=== PATIENT | female | born 1960 | race Caucasian/White ===

== ENCOUNTER 2017-02-12 02:55 | Emergency (ER) | payer MEDICARE ==
[2017-02-12] MEDS ORDERED: ONDANSETRON HCL INJ/PF 4 MG/2 ML SDV IV ONE (03:22)
--- NOTE | 2017-02-12 04:01 | ER Document Report ---
ED General - General Chief Complaint: Fall Injury Stated Complaint: GENERAL WEAKNESS Notes: Patient is a 48-year-old female with a history of polychondritis. She is on chronic pain meds including hydromorphone. She presents with a headache after she fell and hit her head on the floor. Patient says she was mopping the floor and fell and hit her head against the floor. Since then she's had a headache and did vomit. She also is pain in her right upper and right lower extremities. Patient says 3, to get severe pain after any type of trauma or pushing over the areas due to her history of the connective tissue disorder. She also has a history of fibromyalgia in reviewing her previous records. She says she's followed by a director corporate communications in [place]. Patient says she did not have a headache before following hitting her head. TRAVEL OUTSIDE OF THE [place] IN LAST 30 DAYS: No - Related Data Allergies/Adverse Reactions: caffeine [Caffeine] Allergy (Severe, Verified 11/08/15 19:05) sets off autoimmune response ethyl chloride [Ethyl Chloride] Allergy (Severe, Verified 11/08/15 19:05) Anaphylaxis iodine [Iodine] Allergy (Severe, Verified 11/08/15 19:05) Anaphylaxis lidocaine HCl [From Xylocaine] Allergy (Severe, Verified 11/08/15 19:05) Anaphylaxis morphine [Morphine] Allergy (Severe, Verified 11/08/15 19:05) swelling, AMS pentazocine lactate [From Talwin] Allergy (Severe, Verified 11/08/15 19:05) Hallucinations procaine HCl [From Novocain] Allergy (Severe, Verified 11/08/15 19:05) Anaphylaxis carisoprodol [From Soma] Allergy (Intermediate, Verified 11/08/15 19:05) muscle problems Iodinated Contrast Media - Oral and [IV Dye, Iodine Containing] Allergy ( Intermediate, Verified 11/08/15 19:05) Anaphylaxis pentazocine [Pentazocine] Allergy (Intermediate, Verified 11/08/15 19:05) Hallucinations adhesive tape [Adhesive Tape] Allergy (Mild, Verified 11/08/15 19:05) sores, skin peeled off paraben [Paraben] Allergy (Mild, Verified 11/08/15 19:05) rash ampicillin [Ampicillin] Allergy (Unknown, Verified 11/08/15 19:05) convulsions atropine [Atropine] Allergy (Unknown, Verified 11/08/15 19:05) unknown chicken derived [Chicken Derived] Allergy (Unknown, Verified 11/08/15 19:05) unknown pineapple [Pineapple] Allergy (Unknown, Verified 11/08/15 19:05) unknown wheat [Wheat] Allergy (Unknown, Verified 11/08/15 19:05) unknown acetic acid [Acetic Acid] Adverse Reaction (Mild, Verified 11/08/15 19:05) flu like symptoms hops Allergy (Severe, Uncoded 11/08/15 19:05) severe asthma perfume Ht 52 Allergy (Severe, Uncoded 11/08/15 19:05) Anaphylaxis acrylic Allergy (Intermediate, Uncoded 11/08/15 19:05) swelling fluoride Allergy (Unknown, Uncoded 11/08/15 19:05) unknown Past Medical History - Social History Smoking Status: Unknown if Ever Smoked Frequency of alcohol use: None Drug Abuse: None Family History: Reviewed & Not Pertinent - Past Medical History Cardiac Medical History: Denies: Hx Coronary Artery Disease, Hx Heart Attack, Hx Hypertension Pulmonary Medical History: Reports: Hx Asthma Denies: Hx Bronchitis, Hx COPD, Hx Pneumonia Neurological Medical History: Denies: Hx Cerebrovascular Accident, Hx Seizures GI Medical History: Reports: Hx Gastroesophageal Reflux Disease Musculoskeltal Medical History: Reports Hx Arthritis - generalized Past Surgical History: Reports: Hx Appendectomy, Hx Bowel Surgery, Hx Cholecystectomy, Hx Hysterectomy - Immunizations Hx Diphtheria, Pertussis, Tetanus Vaccination: No Review of Systems - Review of Systems Notes: My Normal Review Basic REVIEW OF SYSTEMS: CONSTITUTIONAL : Denies fever, chills, or sweats. Denies recent illness. EENT: Denies eye, ear, throat, or mouth pain or symptoms. Denies nasal or sinus congestion. RESPIRATORY: Denies cough, cold, or chest congestion. Denies shortness of breath, difficulty breathing, or wheezing. GASTROINTESTINAL: Denies abdominal pain. Denies nausea, vomiting, or diarrhea. Denies constipation. Last BM: GENITOURINARY: Denies difficulty urinating, painful urination, burning, frequency, or blood in urine. MUSCULOSKELETAL: Patient complains of pain over the right upper and right lower extremities. SKIN: Denies rash or skin lesions. NEUROLOGICAL: Denies altered mental status or loss of consciousness. Has a headache. Denies weakness or paralysis or loss of use of either side. Denies problems with gait or speech. Denies sensory or motor loss. ALL OTHER SYSTEMS REVIEWED AND NEGATIVE. Physical Exam - Vital signs Vitals: Resp 15 02/12/17 03:07 - Notes Notes: General Appearance: Well nourished, alert, cooperative, no acute distress, mild obvious discomfort. Vitals: reviewed, See vital signs table. Head: no swelling or tenderness to the head Eyes: PERRL, EOMI, Conjuctiva clear Mouth: No decreasd moisture Neck: Supple, some midline neck tenderness. Lungs: No wheezing, No rales, No rhonci, No accessory muscle use, good air exchange bilaterally. Heart: Normal rate, Regular rythm, No murmur, no rub Abdomen: Normal BS, soft, No rigidity, No abdominal tenderness, No guarding, no rebound, no abdominal masses, no organomegaly Extremities: strength 5/5 in all extremities, good pulses in all extremities, pain to palpation over the entire right upper extremity as well as the entire right lower extremity. No deformities., no edema. Back: Patient does have some pain palpation of the lumbar spine which she says is chronic and not related to the fall. Skin: warm, dry, appropriate color, no rash Neuro: speech clear, oriented x 3, normal affect, responds appropriately to questions. Cranial nerves II through XII are intact except for some facial droop the left side which the patient says is chronic reoccurring for her. Patient patient has good strength in her right side extremities. She has slightly diminished strength in the left upper extremity which again she says is chronic and unchanged from her baseline. Course - Vital Signs Vital signs: Temp Pulse Resp BP Pulse Ox 97.4 F 12 133/71 H 100 02/12/17 03:08 02/12/17 04:19 02/12/17 04:19 02/12/17 04:19 - Laboratory Result Diagrams: 02/12/17 05:30 02/12/17 05:30 Laboratory results interpreted by me: 02/12/17 05:30 Chloride 109 H - EKG Interpretation by Me Additional EKG results interpreted by me: 02/12/17 05:38 EKG is reviewed and interpreted by me. EKG shows normal sinus rhythm with a rate of [address] segment elevation or depression. No ischemic T wave inversions. [place] interval, QRS duration, QTC intervals are within normal range. Old EKG for comparison is from 11/09/2015. - Transfer of Care Notes: 02/12/17 06:26 Patient slept reevaluation is unremarkable. She did have one syncopal episode after hitting her head. Since then she's been doing well. She still has a slight headache. She did not have a headache until she hit her head. It's negative. She had some neck pain and palpation however the patient says that this is chronic for. I still order a CT scan of the neck which was negative. The patient has no new focal weakness or numbness. She's acting appropriately. She is starting to feel improved. She does have a small fracture of the right hand which we have splinted with a all no gutter splint. At this time we' ll discharge her home. Patient says that with her underlying cartilaginous disease or less time she will abstain bed after having a fall being that her body becomes inflamed and painful. I encourage her to stay in bed for next 24 hours so she can rest and recover. I encourage her not to try to stand up and walk do not want her to fall again. I encourage her to use her incentive spirometer as in the past she has developed some pneumonia after having some rib pain from a previous fall. She says she does have an incentive spirometer and she'll continue to use this. I encourage her to return to ER if she has recurrent syncopal episodes, worsening headache, or she feels unwell. Patient and her agree with plan and she will be discharged home. Dictation of this chart was performed using voice recognition software; therefore, there may be some unintended grammatical errors. Procedures - Immobilization right hand Pre-Proc Neuro Vasc Exam: Normal Immobilizer type: Ulnar Performed by: PCT Post-Proc Neuro Vasc Exam: Normal Alignment checked and good: Yes Discharge - Discharge Clinical Impression: Fall Qualifiers: Encounter type: initial encounter Qualified Code(s): W19.XXXA - Unspecified fall, initial encounter Syncope Qualifiers: Syncope type: unspecified Qualified Code(s): R55 - Syncope and collapse Concussion Qualifiers: Encounter type: initial encounter Loss of consciousness presence/duration: without LOC Qualified Code(s): S06.0X0A - Concussion without loss of consciousness, initial encounter Hand fracture, right Qualifiers: Encounter type: initial encounter Fracture type: closed Qualified Code(s): S62.91XA - Unspecified fracture of right wrist and hand, initial encounter for closed fracture Condition: Good Disposition: HOME, SELF-CARE Additional Instructions: Please return to the ER immediately if you have recurrent episode of passing out , worsening headache, vomiting, or if you feel that your symptoms are worsening. Please follow up closely with your primary care doctor for reevaluation. Please follow up with the orthopedic surgeon, Dr. Dawson, for reevaluation of her hand. Please use your incentive spirometer every 30 minutes to help make sure he takes a deep breath so you do not develop pneumonia. Referrals: DANY HERRERA MD [Primary Care Provider] - Follow up tomorrow AUGUSTINA DAWSON DO [ACTIVE STAFF] - Follow up in 3-5 days
[2017-02-12 05:46] LABS: ABSOLUTE EOSINOPHILS # (AUTO) 0.1 10^3/uL (0.0-0.6); ABSOLUTE LYMPHOCYTES (AUTO) 2.4 10^3/uL (0.5-4.7); ABSOLUTE MONOCYTES (AUTO) 0.5 10^3/uL (0.1-1.4); ABSOLUTE NEUT (AUTO) 3.3 10^3/uL (1.7-8.2); BASOPHILS % (AUTO) 0.7 % (0-2); EOSINOPHILS % (AUTO) 1.5 % (0-6); HEMATOCRIT 44.1 % (36.0-47.0); HGB HCT DIFFERENCE 0.9; LYMPHOCYTES % (AUTO) 37.6 % (13-45); MEAN CORPUSCULAR HEMOGLOBIN 30.4 pg (27.0-33.4); MEAN CORPUSCULAR VOLUME 89 fl (80-97); MONOCYTES % (AUTO) 8.6 % (3-13); RED BLOOD COUNT 4.94 10^6/uL (3.72-5.28); RED CELL DISTRIBUTION WIDTH 12.9 % (11.5-14.0); SEGMENTED NEUTROPHILS % (AUTO) 51.6 % (42-78); WHITE BLOOD COUNT 6.3 10^3/uL (4.0-10.5)
[2017-02-12] MEDS ORDERED: ACETAMINOPHEN 325 MG TABLET PO ONE (05:47)
[2017-02-12 05:59] LABS: ANION GAP 8 (5-19); BLOOD UREA NITROGEN 12 mg/dL (7-20); CALCIUM 9.5 mg/dL (8.4-10.2); CARBON DIOXIDE 25 mmol/L (22-30); CHLORIDE 109 mmol/L (98-107); CREATININE RESULT 0.53 mg/dL (0.52-1.25); GLUCOSE 102 mg/dL (75-110); POTASSIUM 3.9 mmol/L (3.6-5.0); SODIUM 142.2 mmol/L (137-145)
[2017-02-12] MEDS ORDERED: HYDROMORPHONE HCL 2 MG TABLET PO ONE (06:13)
[2017-02-12 06:27] VITALS: BP 122/62
--- NOTE | 2017-02-12 07:16 | EKG REPORT ---
SEVERITY:- NORMAL ECG - SINUS RHYTHM : Confirmed by: Alvaro Lewis MD 12-Feb-2017 07:15:50
== END 2017-02-12 06:30 | disposition home or self-care (01) ==
LOC: ER 02:55
PROC: 2W3CX1Z Immobilization of Right Lower Arm using Splint (ICD-10-PCS; principal; 2017-02-12)
DX: S62.91XA Unspecified fracture of right hand, initial encounter for closed fracture (principal); S06.0X0A Concussion without loss of consciousness, initial encounter; R55 Syncope and collapse; R53.1 Weakness; R51 Headache; M79.601 Pain in right arm; M79.604 Pain in right leg; W19.XXXA Unspecified fall, initial encounter
CPT/HCPCS: 93005; 99285; 96374; 36415; 85025; 80048; 71010; 73070; 73630; 73502; 73560; 73030; 73100; 70450; 72125; 93010; 29125; L0120; A9270 ×2; J2405

== ENCOUNTER → 2017-11-12 | Outpatient (CLI) | payer MEDICARE ==
--- NOTE | 2017-11-14 19:13 | WOMENS IMAGING REPORT ---
EXAM DESCRIPTION: 3D SCREENING MAMMO BILAT COMPLETED DATE/TIME: 11/12/2017 10:11 am REASON FOR STUDY: ROUTINE SCREENING; Z12.31 Z12.31 ENCNTR SCREEN MAMMOGRAM FOR MALIGNANT NEOPLASM O F KRISTINA M94.9 DISORDER OF CARTILAGE, UNSPECIFIED COMPARISON: 09/21/2016 and 02/20/2015. TECHNIQUE: Standard craniocaudal and mediolateral oblique views of each breast recorded using digita l acquisition and breast tomosynthesis. LIMITATIONS: None. FINDINGS: No masses, calcifications or architectural distortion. No areas of suspicion. Read with the assistance of CAD. .[facility] - R2 Cenova Version 1.3 .[facility] - R2 Cenova Version 1.3 .[facility] - R2 Cenova Version 2.4 .[facility] [place] - R2 Cenova Version 2.4 .[facility] - R2 [employer] Version 9.2 IMPRESSION: NORMAL MAMMOGRAM. BIRADS 1. BREAST DENSITY: a. The breasts are almost entirely fatty. BIRAD: 1 NEGATIVE RECOMMENDATION: ROUTINE SCREENING COMMENT: The patient has been notified of the results by letter per SA requirements. Additional no tification policies are in place for contacting patient with suspicious or incomplete findings. Quality ID #[id number]: The [employer] recommends an annual screening mammogram for women aged 40 years or over. This facility utilizes a reminder system to ensure that all patients receive reminder letters, and/or direct phone calls for appointments. This includes reminders for routine scr eening mammograms, diagnostic mammograms, or other Breast Imaging Interventions when appropriate. Th is patient will be placed in the appropriate reminder system. The [employer] (ACR) has developed recommendations for screening MRI of the breast s in certain patient populations, to be used in conjunction with mammography. Breast MRI surveillanc e may be appropriate for women with more than 20% lifetime risk of developing breast cancer as deter mined by genetic testing, significant family history of the disease, or history of mantle radiation f or Hodgkins Disease. ACR Practice Guidelines 2008. DBT Technology DBT is a type of tomographic mammography. With conventional mammography, overlapping breast tissue ma y make lesions difficult to detect, even with good compression. DBT uses an x-ray tube that rotates a round the breast, taking images at different angles. These images are then combined to create thin sl ices of the breast that the radiologist can view as a 3D reconstruction. The [employer] unit can perform full-field digital mammograms (2D imaging); or DBT (3D imaging); or both, in a combination mode that quickly performs both the mammogram and the tomosynthesis scan while the breast is still compressed. PQRS 6045F: Fluoroscopic imaging is not utilized for breast tomosynthesis. TECHNICAL DOCUMENTATION: FINDING NUMBER: (1) ASSESSMENT: (1) JOB ID: [id number] [employer]- All Rights Reserved
== END ==
LOC: WI 09:48
PROVIDERS: ATTEND Obstetrics & Gynecology Gynecology
DX: Z12.31 Encounter for screening mammogram for malignant neoplasm of breast (principal); M94.9 Disorder of cartilage, unspecified; M89.9 Disorder of bone, unspecified; Z78.0 Asymptomatic menopausal state
CPT/HCPCS: 77063; G0202; 77067

== ENCOUNTER → 2018-03-28 | Outpatient (CLI) | payer MEDICARE ==
--- NOTE | 2018-03-28 15:30 | RADIOLOGY REPORT (SQ) ---
EXAM DESCRIPTION: NM GASTRIC EMPTYING STUDY COMPLETED DATE/TIME: 03/28/2018 1:23 pm REASON FOR STUDY: NAUSEA WITH VOMITING (R11.2) R11.2 NAUSEA WITH VOMITING, UNSPECIFIED COMPARISON: None. RADIONUCLIDE AND DOSE: The route of agent administration: Oral. 2 millicuries Tc-99m Sulfur Colloid. Boiled eggs TECHNIQUE: Serial images acquired to 4 hours with each image recorded over a 30 minute time frame. I mage intensity values plotted with respect to time with linear regression algorithm. LIMITATIONS: None. FINDINGS: Patient was observed for 4 hours. Gastric emptying at 30 minutes was 11%. Gastric emptying at 60 minutes was 21.9%. Gastric emptying at 90 minutes was 32.9% Gastric emptying at 120 minutes with 43.8% Gastric emptying at 240 minutes was 87.6%. IMPRESSION: Gastric emptying values as described above. TECHNICAL DOCUMENTATION: JOB ID: [id number] [employer]- All Rights Reserved Reading location - IP/workstation name: [email or web address]
== END ==
LOC: RAD 07:25
PROVIDERS: ATTEND Internal Medicine Gastroenterology
DX: R11.2 Nausea with vomiting, unspecified (principal)
CPT/HCPCS: 78264; A9541

== ENCOUNTER 2018-06-11 08:31 | Inpatient (IN) | payer MEDICARE ==
--- NOTE | 2018-06-11 09:06 | RADIOLOGY REPORT (SQ) ---
EXAM DESCRIPTION: HIP LEFT AP/LATERAL COMPLETED DATE/TIME: 06/11/2018 8:53 am REASON FOR STUDY: fall COMPARISON: None. NUMBER OF VIEWS: Two views. TECHNIQUE: AP pelvis and additional cross-table lateral view of the left hip. LIMITATIONS: None. FINDINGS: MINERALIZATION: Normal. LEFT HIP: There is an acute, mildly displaced fracture of the left femoral neck that appears to be ba si-cervical or possibly intratrochanteric. RIGHT HIP: No fracture or dislocation. No worrisome bone lesions. PUBIS AND ISCHIUM: No fracture. PELVIS: No fracture. SACRUM: No fracture or dislocation. No worrisome bone lesions. LOWER LUMBAR SPINE: No fracture or dislocation. No worrisome bone lesions. No significant disc disea se. SOFT TISSUES: Multiple presumed surgical melany project over the midline abdomen and pelvis. OTHER: No other significant finding. IMPRESSION: Acute mildly displaced fracture of the left femoral neck that appears to be basi-cervica l versus intratrochanteric TECHNICAL DOCUMENTATION: JOB ID: [id number]- All Rights Reserved Reading location - IP/workstation name: [email or web address]
--- NOTE | 2018-06-11 09:31 | ER Document Report ---
ED Fall - General Chief Complaint: Fall Stated Complaint: FALL LEFT HIP PAIN Time Seen by Provider: 06/11/18 08:34 Mode of Arrival: Medic Information source: Patient, Relative Notes: Patient states that she was walking in the hallway and tripped over her cat falling on her left side. Patient states she fell on a tile floor. Patient complains of left hip pain and left lower rib pain. Patient denies any difficulty breathing. Patient denies any head injury or loss of consciousness. TRAVEL OUTSIDE OF THE [place] IN LAST 30 DAYS: No - HPI Occurred: Just prior to arrival Where: Home Context: Tripped Associated symptoms: Difficulty walking Location of injury/pain: Lower extremity, Other - Left lower rib tenderness Quality of pain: Sharp Pain Level: 4 - Related data Allergies/Adverse Reactions: caffeine [Caffeine] Allergy (Severe, Verified 06/11/18 08:45) sets off autoimmune response ethyl chloride [Ethyl Chloride] Allergy (Severe, Verified 06/11/18 08:45) Anaphylaxis iodine [Iodine] Allergy (Severe, Verified 06/11/18 08:45) Anaphylaxis lidocaine HCl [From Xylocaine] Allergy (Severe, Verified 06/11/18 08:45) Anaphylaxis morphine [Morphine] Allergy (Severe, Verified 06/11/18 08:45) swelling, AMS pentazocine lactate [From Talwin] Allergy (Severe, Verified 06/11/18 08:45) Hallucinations procaine HCl [From Novocain] Allergy (Severe, Verified 06/11/18 08:45) Anaphylaxis carisoprodol [From Soma] Allergy (Intermediate, Verified 06/11/18 08:45) muscle problems Iodinated Contrast- Oral and IV Dye [IV Dye, Iodine Containing] Allergy ( Intermediate, Verified 06/11/18 08:45) Anaphylaxis pentazocine [Pentazocine] Allergy (Intermediate, Verified 06/11/18 08:45) Hallucinations adhesive tape [Adhesive Tape] Allergy (Mild, Verified 06/11/18 08:45) sores, skin peeled off paraben [Paraben] Allergy (Mild, Verified 06/11/18 08:45) rash ampicillin [Ampicillin] Allergy (Unknown, Verified 06/11/18 08:45) convulsions atropine [Atropine] Allergy (Unknown, Verified 06/11/18 08:45) unknown chicken derived [Chicken Derived] Allergy (Unknown, Verified 06/11/18 08:45) unknown pineapple [Pineapple] Allergy (Unknown, Verified 06/11/18 08:45) unknown wheat [Wheat] Allergy (Unknown, Verified 06/11/18 08:45) unknown acetic acid [Acetic Acid] Adverse Reaction (Mild, Verified 06/11/18 08:45) flu like symptoms hops Allergy (Severe, Uncoded 06/11/18 08:45) severe asthma perfume Ht 52 Allergy (Severe, Uncoded 06/11/18 08:45) Anaphylaxis acrylic Allergy (Intermediate, Uncoded 06/11/18 08:45) swelling fluoride Allergy (Unknown, Uncoded 06/11/18 08:45) unknown Past Medical History - General Information source: Patient - Social History Smoking Status: Never Smoker Chew tobacco use (# tins/day): No Frequency of alcohol use: None Drug Abuse: None Occupation: None Lives with: Spouse/Significant other Family History: Reviewed & Not Pertinent Patient has suicidal ideation: No Patient has homicidal ideation: No - Medical History Medical History: Other - Lupus - Past Medical History Cardiac Medical History: Denies: Hx Coronary Artery Disease, Hx Heart Attack, Hx Hypertension Pulmonary Medical History: Reports: Hx Asthma Denies: Hx Bronchitis, Hx COPD, Hx Pneumonia Neurological Medical History: Denies: Hx Cerebrovascular Accident, Hx Seizures Endocrine Medical History: Reports: Hx Hypothyroidism Renal/ Medical History: Denies: Hx Peritoneal Dialysis Malignancy Medical History: Reports: Hx Ovarian Cancer GI Medical History: Reports: Hx Gastroesophageal Reflux Disease Musculoskeletal Medical History: Reports Hx Arthritis, Reports Hx Fibromyalgia, Reports Other - Chronic back pain, osteoporosis Past Surgical History: Reports: Hx Appendectomy, Hx Bowel Surgery, Hx Cholecystectomy, Hx Hysterectomy, Hx Pancreatic Surgery - Multiple ERCP procedure with stent placement and removal, last surgery was, Other - Surgery to remove adhesions - Immunizations Hx Diphtheria, Pertussis, Tetanus Vaccination: No Review of Systems - Review of Systems Constitutional: Recent illness - Patient being treated for chronic UTI, currently taking penicillin EENT: No symptoms reported Cardiovascular: No symptoms reported Respiratory: Other - Left lower rib tenderness Gastrointestinal: Abdominal pain - Left upper quadrant tenderness along lower costal margin, chronic right upper quadrant and periumbilical tenderness, Nausea Genitourinary: No symptoms reported. denies: Flank pain Female Genitourinary: No symptoms reported Musculoskeletal: Back pain - Chronic back pain, Joint pain - Left hip pain Skin: No symptoms reported Hematologic/Lymphatic: No symptoms reported Neurological/Psychological: No symptoms reported Physical Exam - Vital signs Vitals: Temp Pulse Resp BP Pulse Ox 97.5 F 91 20 159/82 H 100 06/11/18 08:39 06/11/18 08:39 06/11/18 08:39 06/11/18 08:39 06/11/18 08:39 - General General appearance: Appears well, Alert In distress: None - HEENT Head: Normocephalic, Atraumatic Eyes: Normal Conjunctiva: Normal Nasal: Normal Mouth/Lips: Normal Mucous membranes: Normal Neck: Normal, Supple. No: Lymphadenopathy - Respiratory Respiratory status: No respiratory distress Chest status: Nontender Breath sounds: Normal Chest palpation: Tender - Tenderness along left lower costal margin. No: Flail segment, Subcutaneous emphysema, Ecchymosis, Wounds - Cardiovascular Rhythm: Regular Heart sounds: S1 appreciated, S2 appreciated Pulses: Normal: Dorsalis pedis - Abdominal Inspection: Other - Multiple scars to abdomen from previous surgeries Distension: No distension Tenderness: Tender - Mild tenderness to periumbilical, right upper quadrant, patient reports this is chronic, tender along left upper quadrant. No: Guarding Organomegaly: No organomegaly - Back Back: Normal, Nontender - Extremities General upper extremity: Normal inspection, Normal ROM General lower extremity: Tender - Left hip tenderness Hip: Tender - Left hip, Pain with ROM, Unable to bear weight. No: Dislocation Ankle: Normal, Nontender Foot: Normal, Nontender - Neurological Neuro grossly intact: Yes Cognition: Normal Walden Coma Scale Eye Opening: Spontaneous Walden Coma Scale Verbal: Oriented Jacqueline Coma Scale Motor: Obeys Commands Walden Coma Scale Total: 15 - Psychological Associated symptoms: Normal affect, Normal mood - Skin Skin Temperature: Warm Skin Moisture: Dry Skin Color: Normal Course - Re-evaluation Re-evalutation: 06/11/18 09:[address] Hodge regarding patient presentation and choice of imaging studies to evaluate rib tenderness. Patient reports that she has an anaphylactic CODE BLUE response to IV and oral contrast dye. Noncontrast study of the abdomen and pelvis ordered. 06/11/18 11:[address] Hussein regarding patient's CT scan report. Patient states that she has chronic right upper quadrant abdominal pain but the pain is not any different than it normally is. Patient also states she has chronic abdominal pain to the umbilical area from her numerous previous surgeries. Dr. Hussein states that the pneumobilia symptoms are not typically seen with trauma and suspects that these are likely chronic findings due to her numerous biliary surgeries. No evidence for splenic injury at this time, although noncontrasted study was performed given patient's anaphylactic reaction to contrast dye. Consulted with Dr. Bonilla regarding patient's hip fracture. Advises having patient remain n.p.o. and will be by the hospital sometime today. - Vital Signs Vital signs: Temp Pulse Resp BP Pulse Ox 98.2 F 94 18 134/68 H 99 06/11/18 13:38 06/11/18 13:38 06/11/18 13:38 06/11/18 13:38 06/11/18 13:38 - Laboratory Result Diagrams: 06/11/18 11:48 06/11/18 11:48 Laboratory results interpreted by me: 06/11/18 10:30 Ur Leukocyte Esterase TRACE H Labs- Entire Visit 06/11/18 06/11/18 06/11/18 10:30 11:48 11:48 WBC 11.2 H RBC 5.00 Hgb 15.5 Hct 45.4 MCV 91 MCH 31.0 MCHC 34.1 RDW 13.7 Plt Count 259 Seg Neutrophils % 67.9 Lymphocytes % 23.6 Monocytes % 7.2 Eosinophils % 1.0 Basophils % 0.3 Absolute Neutrophils 7.6 Absolute Lymphocytes 2.6 Absolute Monocytes 0.8 Absolute Eosinophils 0.1 Absolute Basophils 0.0 Sodium 145.7 H Potassium 3.8 Chloride 105 Carbon Dioxide 30 Anion Gap 11 BUN 8 Creatinine 0.67 Est GFR ( Amer) > 60 Est GFR (Non-Af Amer) > 60 Glucose 74 L Calcium 9.5 Total Bilirubin 0.4 Direct Bilirubin 0.1 Neonat Total Bilirubin Not Reportable Neonat Direct Bilirubin Not Reportable Neonat Indirect Bili Not Reportable AST 27 ALT 32 Alkaline Phosphatase 60 Total Protein 6.9 Albumin 4.1 Urine Color STRAW Urine Appearance CLEAR Urine pH 9.0 Ur Specific [place] 1.004 Urine Protein NEGATIVE Urine Glucose (UA) NEGATIVE Urine Ketones NEGATIVE Urine Blood NEGATIVE Urine Nitrite NEGATIVE Urine Bilirubin NEGATIVE Urine Urobilinogen NEGATIVE Ur Leukocyte Esterase TRACE H Urine WBC (Auto) 2 Urine RBC (Auto) 0 Urine Mucus (Auto) RARE Urine Ascorbic Acid NEGATIVE - Diagnostic Test Radiology reviewed: Image reviewed, Reports reviewed Discharge - Discharge Clinical Impression: Rib pain on left side Fall Qualifiers: Encounter type: initial encounter Qualified Code(s): W19.XXXA - Unspecified fall, initial encounter Hip fracture, left Qualifiers: Encounter type: initial encounter Fracture type: closed Qualified Code(s): S72.002A - Fracture of unspecified part of neck of left femur, initial encounter for closed fracture Condition: Stable Disposition: ADMITTED OBSERVATION Admitting Provider: Bonilla Unit Admitted: Medical Floor
--- NOTE | 2018-06-11 10:24 | RADIOLOGY REPORT (SQ) ---
EXAM DESCRIPTION: CT ABD/PELVIS NO ORAL OR IV COMPLETED DATE/TIME: 06/11/2018 9:56 am REASON FOR STUDY: fall, left lower lat rib pain, eval spleen COMPARISON: None. TECHNIQUE: CT scan of the abdomen and pelvis performed without intravenous or oral contrast. Images reviewed with lung, soft tissue, and bone windows. Reconstructed coronal and sagittal MPR images revi ewed. All images stored on PACS. All CT scanners at this facility use dose modulation, iterative reconstruction, and/or weight based d osing when appropriate to reduce radiation dose to as low as reasonably achievable (ALARA). [facility]: Dose Right [facility]: CareDose [facility]: Dose Right [facility]: Teradose 4D [facility]: Smart Netstory RADIATION DOSE: CT Rad equipment meets quality standard of care and radiation dose reduction techniq ues were employed. CTDIvol: 9.1 mGy. DLP: 544 mGy-cm.mGy. LIMITATIONS: None. FINDINGS: LOWER CHEST: No significant findings. No nodules or infiltrates. NON-CONTRASTED LIVER, SPLEEN, ADRENALS: There is postsurgical change the gallbladder fossa. There is marked pneumobilia present. The liver, spleen, and adrenal glands are otherwise unremarkable. No e vidence of traumatic injury on this noncontrast examination. PANCREAS: No masses. No peripancreatic inflammatory changes. GALLBLADDER: Surgically absent. RIGHT KIDNEY AND URETER: No suspicious masses. Assessment limited by lack of IV contrast. No signif icant calcifications. No hydronephrosis or hydroureter. LEFT KIDNEY AND URETER: No suspicious masses. Assessment limited by lack of IV contrast. No signifi cant calcifications. No hydronephrosis or hydroureter. AORTA AND RETROPERITONEUM: No aneurysm. No retroperitoneal masses or adenopathy. BOWEL AND PERITONEAL CAVITY: No obvious masses or inflammatory changes. No free fluid. APPENDIX: Normal. PELVIS, BLADDER, AND ABDOMINAL WALL:Postsurgical changes are present along the anterior pelvic wall. There is a tiny focus of air in the anti dependent portion of the bladder. BONES: There is an acute displaced fracture of the left femoral neck that extends along and oblique a xes from a subcapital to trans cervical location. OTHER: No other significant finding. IMPRESSION: 1. Acute displaced fracture of the left femoral neck. The fracture is somewhat oblique in nature and extends from a subcapital to transcervical location. 2. No evidence of splenic injury, however please note that evaluation for traumatic abdominal organ injury is somewhat limited with the lack of IV contrast. 3. Marked pneumobilia. Recommend correlation with any recent gallbladder surgery or other abdominal surgery. 4. Tiny focus of air in the anti dependent portion of the bladder. Recommend correlation with any r ecent catheterization. COMMENT: Quality ID # [id number]: Final reports with documentation of one or more dose reduction techniques (e.g., Automated exposure control, adjustment of the mA and/or kV according to patient size, use of iterative reconstruction technique) TECHNICAL DOCUMENTATION: JOB ID: [id number] [employer]- All Rights Reserved Reading location - IP/workstation name: [email or web address]
--- NOTE | 2018-06-11 10:24 | RADIOLOGY REPORT (SQ) ---
EXAM DESCRIPTION: CHEST 2 VIEWS COMPLETED DATE/TIME: 06/11/2018 10:07 am REASON FOR STUDY: fall, hip fx COMPARISON: None. EXAM PARAMETERS: NUMBER OF VIEWS: two views TECHNIQUE: Digital Frontal and Lateral radiographic views of the chest acquired with the patient in a supine position. RADIATION DOSE: NA LIMITATIONS: none FINDINGS: LUNGS AND PLEURA: No opacities, masses or pneumothorax. No pleural effusion. MEDIASTINUM AND HILAR STRUCTURES: No masses or contour abnormalities. HEART AND VASCULAR STRUCTURES: Heart normal size. No evidence for failure. BONES: No acute findings. HARDWARE: None in the chest. OTHER: No other significant finding. IMPRESSION: NO ACUTE RADIOGRAPHIC FINDING IN THE CHEST. TECHNICAL DOCUMENTATION: JOB ID: [id number] [employer]- All Rights Reserved Reading location - IP/workstation name: [email or web address]
[2018-06-11] MEDS ORDERED: HYDROMORPHONE HCL INJ/PF 2 MG/ML AMPULE IV ONE ×2 (10:34→13:40)
[2018-06-11] MEDS ORDERED: PROMETHAZINE HCL 25 MG SUPP.RECT PR ONE (10:43)
[2018-06-11 11:08] LABS: APPEARANCE,URINE CLEAR; BILIRUBIN,URINE NEGATIVE (NEGATIVE); COLOR,URINE STRAW; GLUCOSE, URINE NEGATIVE (NEGATIVE); KETONES,URINE NEGATIVE (NEGATIVE); LEUKOCYTE ESTERASE,URINE TRACE (NEGATIVE); NITRITE,URINE NEGATIVE (NEGATIVE); PROTEIN,URINE NEGATIVE (NEGATIVE); URINE SPECIFIC GRAVITY 1.004; UROBILINOGEN,URINE NEGATIVE mg/dL (<2.0)
[2018-06-11 12:20] LABS: ABSOLUTE EOSINOPHILS # (AUTO) 0.1 10^3/uL (0.0-0.6); ABSOLUTE LYMPHOCYTES (AUTO) 2.6 10^3/uL (0.5-4.7); ABSOLUTE MONOCYTES (AUTO) 0.8 10^3/uL (0.1-1.4); ABSOLUTE NEUT (AUTO) 7.6 10^3/uL (1.7-8.2); BASOPHILS % (AUTO) 0.3 % (0-2); HEMATOCRIT 45.4 % (36.0-47.0); HEMOGLOBIN 15.5 g/dL (12.0-15.5); LYMPHOCYTES % (AUTO) 23.6 % (13-45); MEAN CORPUSCULAR HGB CONC 34.1 g/dL (32.0-36.0); MEAN CORPUSCULAR VOLUME 91 fl (80-97); MONOCYTES % (AUTO) 7.2 % (3-13); PLATELET COUNT 259 10^3/uL (150-450); RED CELL DISTRIBUTION WIDTH 13.7 % (11.5-14.0); SEGMENTED NEUTROPHILS % (AUTO) 67.9 % (42-78); TOTAL CELLS COUNTED % (AUTO) 100 %; WHITE BLOOD COUNT 11.2 10^3/uL (4.0-10.5)
[2018-06-11 12:47] LABS: ALANINE AMINOTRANSFERASE 32 U/L (9-52); ALBUMIN 4.1 g/dL (3.5-5.0); ALKALINE PHOSPHATASE 60 U/L (38-126); ANION GAP 11 (5-19); ASPARTATE AMINO TRANSFERASE 27 U/L (14-36); BILIRUBIN,DIRECT 0.1 mg/dL (0.0-0.4); BILIRUBIN,TOTAL 0.4 mg/dL (0.2-1.3); BLOOD UREA NITROGEN 8 mg/dL (7-20); CALCIUM 9.5 mg/dL (8.4-10.2); CARBON DIOXIDE 30 mmol/L (22-30); CHLORIDE 105 mmol/L (98-107); GLUCOSE 74 mg/dL (75-110); POTASSIUM 3.8 mmol/L (3.6-5.0); SODIUM 145.7 mmol/L (137-145); TOTAL PROTEIN 6.9 g/dL (6.3-8.2)
[2018-06-11] MEDS ORDERED: DEXTROSE 5%-NORMAL SALINE 1,000 ML IV ONE (13:42)
[2018-06-11] MEDS ORDERED: OXYCODONE HCL IR 5 MG TABLET PO PRN (14:45)
[2018-06-11] MEDS ORDERED: MORPHINE SULFATE 10 MG/ML INJ IV PRN (14:46)
--- NOTE | 2018-06-11 17:15 | PDOC H&P ---
History of Present Illness Admission Date/PCP: 06/11/18 11:14 ALEXANDRA DE LA PAZ Patient complains of: Left hip pain and inability to weight-bear status post fall History of Present Illness: CAROLINA MONTEZ is a 57 year old female with significant comorbidities who fell and tripped over her cat at her house. Fell onto her left hip where she had immediate pain and inability to get up and ambulate. Patient does have a deformity therefore she was brought by EMS to the hospital. Upon further evaluation and imaging patient noted to have a displaced femoral neck fracture. Denies any numbness or tingling or paresthesias. Has significant 5 out of 5 pain and tenderness palpation over the anterior aspect of the hip and the groin region. Any attempt of log roll causes significant pain. She describes the pain to be sharp. Denies any loss of consciousness or any upper extremity injury. Past Medical History Cardiac Medical History: Denies: Coronary Artery Disease, Myocardial Infarction, Hypertension Pulmonary Medical History: Reports: Asthma Denies: Bronchitis, Chronic Obstructive Pulmonary Disease (COPD), Pneumonia Neurological Medical History: Denies: Seizures Endocrine Medical History: Reports: Hypothyroidism Malignancy Medical History: Reports: Ovarian Cancer GI Medical History: Reports: Gastroesophageal Reflux Disease Musculoskeltal Medical History: Reports: Arthritis, Fibromyalgia, Other - Chronic back pain, osteoporosis Hematology: Denies: Anemia Past Surgical History Past Surgical History: Reports: Appendectomy, Cholecystectomy, Hysterectomy, Other - Surgery to remove adhesions Social History Lives with: Spouse/Significant other Smoking Status: Never Smoker Frequency of Alcohol Use: None Hx Recreational Drug Use: No Hx Prescription Drug Abuse: No Family History Family History: Reviewed & Not Pertinent Parental Family History Reviewed: No Children Family History Reviewed: No Sibling(s) Family History Reviewed.: No Medication/Allergy Home Medications: Famotidine [Pepcid 20 mg Tablet] 20 mg PO QHS 11/16/11 Hydroxychloroquine Sulfate [Plaquenil 200 mg Tablet] 200 mg PO DAILY 01/09/15 Pentoxifylline [Pentoxil] 400 mg PO AC 01/09/15 Gabapentin [Neurontin 400 mg Capsule] 800 mg PO TID@06,12,18 11/09/15 Albuterol Sulfate [Albuterol Sulfate 2.5mg/3 mL] 2.5 mg IH Q4HP PRN #120 ml Albuterol Sulfate [Ventolin HFA MDI 18 GM] 2 puff IH Q4HP PRN #1 hfa.aer.ad Adrenal Desiccated Tablet 1 tab PO BID@06,12 06/11/18 Calcium/D3/Argnin/Inos/Silicon [Bone Density Calcium + D Cplt] 2 each PO TID Gabapentin [Neurontin 400 mg Capsule] 1,200 mg PO DAILY@0000 06/11/18 L.acid/L.casei/B.bif/B.sandy/Fos [Probiotic Blend Capsule] 1 each PO Q6 06/11/18 Levothyroxine Sodium [Synthroid 0.088 mg Tablet] 88 mcg PO Q6AM 06/11/18 Magnesium Citrate 100 mg PO Q6 06/11/18 Melatonin [Melatonin 5 mg Tablet] 5 mg PO QHS 06/11/18 Metoclopramide HCl [Reglan] 5 mg PO ACHSP PRN 06/11/18 Ondansetron [Ondansetron Odt] 8 mg SL BIDP PRN 06/11/18 Penicillin V Potassium [Penicillin Vk 500 mg Tablet] 500 mg PO QID MDD FILLED FOR 7DS 06/11/18 Potassium Gluconate [Potassium] 99 mg PO Q6 06/11/18 Ubidecarenone [Co Q-10] 60 mg PO DAILY 06/11/18 Allergies/Adverse Reactions: caffeine [Caffeine] Allergy (Severe, Verified 06/11/18 08:45) sets off autoimmune response ethyl chloride [Ethyl Chloride] Allergy (Severe, Verified 06/11/18 08:45) Anaphylaxis iodine [Iodine] Allergy (Severe, Verified 06/11/18 08:45) Anaphylaxis lidocaine HCl [From Xylocaine] Allergy (Severe, Verified 06/11/18 08:45) Anaphylaxis morphine [Morphine] Allergy (Severe, Verified 06/11/18 08:45) swelling, AMS pentazocine lactate [From Talwin] Allergy (Severe, Verified 06/11/18 08:45) Hallucinations procaine HCl [From Novocain] Allergy (Severe, Verified 06/11/18 08:45) Anaphylaxis carisoprodol [From Soma] Allergy (Intermediate, Verified 06/11/18 08:45) muscle problems Iodinated Contrast- Oral and IV Dye [IV Dye, Iodine Containing] Allergy ( Intermediate, Verified 06/11/18 08:45) Anaphylaxis pentazocine [Pentazocine] Allergy (Intermediate, Verified 06/11/18 08:45) Hallucinations adhesive tape [Adhesive Tape] Allergy (Mild, Verified 06/11/18 08:45) sores, skin peeled off paraben [Paraben] Allergy (Mild, Verified 06/11/18 08:45) rash ampicillin [Ampicillin] Allergy (Unknown, Verified 06/11/18 08:45) convulsions atropine [Atropine] Allergy (Unknown, Verified 06/11/18 08:45) unknown chicken derived [Chicken Derived] Allergy (Unknown, Verified 06/11/18 08:45) unknown pineapple [Pineapple] Allergy (Unknown, Verified 06/11/18 08:45) unknown wheat [Wheat] Allergy (Unknown, Verified 06/11/18 08:45) unknown acetic acid [Acetic Acid] Adverse Reaction (Mild, Verified 06/11/18 08:45) flu like symptoms hops Allergy (Severe, Uncoded 06/11/18 08:45) severe asthma perfume Ht 52 Allergy (Severe, Uncoded 06/11/18 08:45) Anaphylaxis acrylic Allergy (Intermediate, Uncoded 06/11/18 08:45) swelling fluoride Allergy (Unknown, Uncoded 06/11/18 08:45) unknown Review of Systems All systems: reviewed and no additional remarkable complaints except as stated - Pertinent issues noted in HPI. Physical Exam Vital Signs: Temp Pulse Resp BP Pulse Ox 36.8 C 94 18 134/68 H 99 06/11/18 13:38 06/11/18 13:38 06/11/18 13:38 06/11/18 13:38 06/11/18 13:38 General appearance: PRESENT: no acute distress Head exam: PRESENT: atraumatic, normocephalic Eye exam: PRESENT: EOMI, other - Symmetric round pupils. ABSENT: nystagmus Ear exam: PRESENT: normal external ear exam Mouth exam: PRESENT: neck supple Neck exam: ABSENT: lymphadenopathy, tenderness, thyromegaly Respiratory exam: PRESENT: symmetrical, unlabored. ABSENT: accessory muscle use , tachypnea Cardiovascular exam: PRESENT: RRR Pulses: PRESENT: +2 pedal pulses bilateral Vascular exam: PRESENT: normal capillary refill GI/Abdominal exam: PRESENT: soft. ABSENT: distended, guarding, tenderness Neurological exam: PRESENT: alert, awake, oriented to person, oriented to place , oriented to time, oriented to situation Psychiatric exam: PRESENT: appropriate affect, normal mood Skin exam: PRESENT: intact. ABSENT: abrasion, erythema Adult Front & Back Image: 1 - Tender palpation of the left groin. Pain with attempted logroll. Short and externally rotated left lower extremity. With good capillary refill. Neuro vascular intact distally Results Laboratory Results: 06/11/18 11:48 06/11/18 11:48 06/11/18 06/11/18 11:48 11:48 WBC 11.2 H RBC 5.00 Hgb 15.5 Hct 45.4 MCV 91 MCH 31.0 MCHC 34.1 RDW 13.7 Plt Count 259 Seg Neutrophils % 67.9 Lymphocytes % 23.6 Monocytes % 7.2 Eosinophils % 1.0 Basophils % 0.3 Absolute Neutrophils 7.6 Absolute Lymphocytes 2.6 Absolute Monocytes 0.8 Absolute Eosinophils 0.1 Absolute Basophils 0.0 Sodium 145.7 H Potassium 3.8 Chloride 105 Carbon Dioxide 30 Anion Gap 11 BUN 8 Creatinine 0.67 Est GFR ( Amer) > 60 Est GFR (Non-Af Amer) > 60 Glucose 74 L Calcium 9.5 Total Bilirubin 0.4 AST 27 ALT 32 Alkaline Phosphatase 60 Total Protein 6.9 Albumin 4.1 Impressions: Hip X-Ray 06/11/18 08:32 IMPRESSION: Acute mildly displaced fracture of the left femoral neck that appears to be basi-cervical versus intratrochanteric Abdomen/Pelvis CT 06/11/18 09:28 IMPRESSION: 1. Acute displaced fracture of the left femoral neck. The fracture is somewhat oblique in nature and extends from a subcapital to transcervical location. 2. No evidence of splenic injury, however please note that evaluation for traumatic abdominal organ injury is somewhat limited with the lack of IV contrast. 3. Marked pneumobilia. Recommend correlation with any recent gallbladder surgery or other abdominal surgery. 4. Tiny focus of air in the anti dependent portion of the bladder. Recommend correlation with any recent catheterization. Chest X-Ray 06/11/18 09:28 IMPRESSION: NO ACUTE RADIOGRAPHIC FINDING IN THE CHEST. Status: Image reviewed by me Assessment & Plan - Diagnosis (1) Hip fracture, left Qualifiers: Encounter type: initial encounter Fracture type: closed Qualified Code(s) : S72.002A - Fracture of unspecified part of neck of left femur, initial encounter for closed fracture Is this a current diagnosis for this admission?: Yes Plan: 57-year-old female with multiple medical comorbidities and a allergy list twice as long. She suffered a displaced left femoral neck fracture. I discussed the reasoning behind her likely need for a total hip arthroplasty versus just doing a partial hip arthroplasty. She seems to understand as well as her significant other who is present here in the room. Currently wishes to proceed with pain control and consent for surgery for Wednesday who I will discuss with Dr. Adkins to see if he can able to proceed to do the total hip arthroplasty.
[2018-06-11] MEDS: OXYCODONE HCL IR 5 MG TABLET PO PRN (20:16)
--- NOTE | 2018-06-11 22:00 | EKG REPORT ---
SEVERITY:- NORMAL ECG - SINUS RHYTHM : Confirmed by: Peter Abebe 11-Jun-2018 21:59:34
[2018-06-12] MEDS: OXYCODONE HCL IR 5 MG TABLET PO PRN ×2 (01:17→05:04)
[2018-06-12] MEDS ORDERED: ALBUTEROL SULFATE HFA (90 MCG/PUFF) 8 GM MDI (1 MDI/ER DISP) IH PRN (11:02)
[2018-06-12] MEDS ORDERED: HYDROMORPHONE HCL 2 MG TABLET PO PRN (11:02)
[2018-06-12] MEDS ORDERED: ALBUTEROL SULFATE 0.083% NEB 2.5 MG/3 ML AMPUL NEB PRN ×2 (11:02→14:30)
[2018-06-12] MEDS ORDERED: (PENDING PHARMACY ID) (Ondansetron [Ondansetron Odt] 8 MG) SL PRN (11:02)
[2018-06-12] MEDS ORDERED: ONDANSETRON 4 MG TAB.RAPDIS PO PRN (11:06)
[2018-06-12] MEDS: GABAPENTIN 400 MG CAPSULE PO SCH ×3 (11:23→23:14)
[2018-06-12] MEDS: HYDROMORPHONE HCL 2 MG TABLET PO PRN ×4 (11:23→22:10)
[2018-06-12] MEDS ORDERED: B LON PO SCH (12:00)
[2018-06-12] MEDS ORDERED: ACID PO SCH (12:00)
[2018-06-12] MEDS ORDERED: CASEI PO SCH (12:00)
[2018-06-12] MEDS ORDERED: FOS PO SCH (12:00)
[2018-06-12] MEDS ORDERED: (PENDING PHARMACY ID) (Potassium Gluconate [Potassium] 99 MG) PO SCH (12:00)
[2018-06-12] MEDS ORDERED: MAGNESIUM CITRATE 100 MG PO SCH (12:00)
[2018-06-12] MEDS ORDERED: B BIF PO SCH (12:00)
[2018-06-12] MEDS ORDERED: [UNRECOGNIZED DRUG - OTHER] PO SCH (12:00)
[2018-06-12] MEDS: METOCLOPRAMIDE HCL 10 MG TABLET PO PRN ×2 (12:25→18:00)
[2018-06-12] MEDS: PENTOXIFYLLINE 400 MG TABLET.SA PO SCH ×2 (12:35→18:15)
--- NOTE | 2018-06-12 13:36 | PDOC PROGRESS REPORT ---
Subjective Progress Note for:: 06/12/18 Subjective:: Patient laying in bed complaining of pain. They had just adjusted her. No issues overnight. Reason For Visit: FALL, FRACTURE OF LEFT HIP,RIB PAIN ON LEFT SIDE Physical Exam Vital Signs: Temp Pulse Resp BP Pulse Ox 36.8 C 85 16 124/61 98 06/12/18 12:04 06/12/18 12:04 06/12/18 12:04 06/12/18 12:04 06/12/18 12:04 Intake & Output 06/11/18 06/12/18 06/13/18 06:59 06:59 06:59 Intake Total 326 Output Total 600 Balance -274 Weight 70.8 kg Adult Front & Back Image: 1 - Tender to palpation. Unable to do range of motion second to her pain level. Does have positive EHL FHL as well as tibialis anterior. Still externally rotated and shortened extremity. Results Laboratory Results: 06/11/18 11:48 06/11/18 11:48 Impressions: Hip X-Ray 06/11/18 08:32 IMPRESSION: Acute mildly displaced fracture of the left femoral neck that appears to be basi-cervical versus intratrochanteric Abdomen/Pelvis CT 06/11/18 09:28 IMPRESSION: 1. Acute displaced fracture of the left femoral neck. The fracture is somewhat oblique in nature and extends from a subcapital to transcervical location. 2. No evidence of splenic injury, however please note that evaluation for traumatic abdominal organ injury is somewhat limited with the lack of IV contrast. 3. Marked pneumobilia. Recommend correlation with any recent gallbladder surgery or other abdominal surgery. 4. Tiny focus of air in the anti dependent portion of the bladder. Recommend correlation with any recent catheterization. Chest X-Ray 06/11/18 09:28 IMPRESSION: NO ACUTE RADIOGRAPHIC FINDING IN THE CHEST. Assessment & Plan - Diagnosis (1) Hip fracture, left Qualifiers: Encounter type: initial encounter Fracture type: closed Qualified Code(s) : S72.002A - Fracture of unspecified part of neck of left femur, initial encounter for closed fracture Is this a current diagnosis for this admission?: Yes - Plan Summary Plan Summary: 57-year-old female who has a left femoral neck fracture. She agreed to proceed with left total hip arthroplasty. Discussed the case with Dr. Adkins who agreed to take care of the patient and do the surgery tomorrow. Patient now has been placed n.p.o. at midnight and started on fluids. She has been consented. Nursing volunteer services supervisor has been called and the case has been added for tomorrow. Pertaining to her pain levels she does see [facility] therefore will call him to better adequately control her pain level.
[2018-06-12] MEDS ORDERED: PENICILLIN V POTASSIUM 500 MG TABLET PO SCH (14:00)
[2018-06-12] MEDS: CYCLOBENZAPRINE HCL 10 MG TABLET PO PRN ×2 (14:16→22:13)
[2018-06-12] MEDS ORDERED: PENTOXIFYLLINE 400 MG TABLET.SA PO SCH (16:00)
[2018-06-12] MEDS: PENICILLIN V POTASSIUM 500 MG TABLET PO SCH ×2 (18:15→22:09)
[2018-06-12] MEDS: FAMOTIDINE 20 MG TABLET PO SCH (22:09)
[2018-06-12] MEDS: AMITRIPTYLINE HCL 25 MG TABLET PO SCH (22:09)
[2018-06-12] MEDS: MELATONIN 5 MG TABLET PO SCH (22:09)
[2018-06-13] MEDS: HYDROMORPHONE HCL 2 MG TABLET PO PRN ×3 (04:13→21:55)
[2018-06-13] MEDS: GABAPENTIN 400 MG CAPSULE PO SCH ×4 (05:18→23:58)
[2018-06-13] MEDS: LEVOTHYROXINE SODIUM 0.088 MG TABLET PO SCH (05:18)
--- NOTE | 2018-06-13 08:10 | CONSULTATION REPORT E ---
Consultation Report NAME: CAROLINA MONTEZ : 1960 AGE: 57Y DATE: 06/13/2018 ROOM: 403 A TO: DONTA GOODEN M.D. FROM: MARBIN HOLLINS M.D. Requesting Physician REASON FOR CONSULTATION: Acute hip fracture in setting of chronic opioid management with multitude of allergies. HISTORY OF PRESENT ILLNESS: The patient is a 57-year-old female seen in consultation for acute hip fracture and increased pain with a known multitude of allergies. Patient has been seen by the [facility] in the past for both back and neck pain and continued on chronic opioid management with hydromorphone, which she had tolerated well. She notes that her pain began after she tripped and fell, landing on her left hip, over the weekend. She had an inability to get up and ambulate. She had called for EMS and was found to have a deformity of her hip. She was seen and then found via imaging to have a displaced femoral neck fracture. She notes increased pain at the left hip site with any type of movement and specifically over the front and the groin. She notes that any movement will set off a shooting pain down the leg. She describes the pain as sharp. When she is laying flat the pain is relieved on her back. She denies any other recent fevers or infections. She notes that she has a multitude of allergies for which she has been seen at [facility] and found that hydromorphone and pentoxifylline have been effective for her overall pain control. She requests change to alternative medication. Overnight after switch of the hydromorphone she notes that her pain relief is between 2 to 3 hours at a time per dose without side effect. She is awaiting surgery today. PAST MEDICAL HISTORY: Noted history of hypothyroidism, prior ovarian cancer, prior GERD, prior osteoarthritis, prior fibromyalgia, chronic back pain, chronic neck pain. PAST SURGICAL HISTORY: Appendectomy, cholecystectomy, hysterectomy, lysis of adhesions. SOCIAL HISTORY: Denies smoking, illicits, or alcohol. FAMILY HISTORY: Noncontributory. MEDICATIONS: See MAR. Of primary importance is that she is on pain medications, gabapentin 1200 mg daily, pentoxifylline 400 mg p.o. before meals, and hydromorphone 2 mg p.o. q.i.d. p.r.n. at home. ALLERGIES: PLEASE SEE LIST IN MAR GIVEN EXTENSIVE NATURE. REVIEW OF SYSTEMS: Reviewed and no changes from Dr. Irene Hollins's note from 06/11/2018. PHYSICAL EXAMINATION: GENERAL: No acute distress, lying in bed. HEENT: Head is normocephalic, atraumatic. NECK: Supple. RESPIRATORY: Clear to auscultation bilaterally. CARDIOVASCULAR: Regular rate and rhythm. Pulses: 2+ pedal pulses bilaterally. Normal capillary refill. GASTROINTESTINAL: No distention. No guarding. No tenderness. NEUROLOGIC: Alert and oriented x3. PSYCHIATRIC: Appropriate affect. Normal mood. EXTREMITIES: Noted tenderness over the left groin and left hip. Leg is externally rotated and short compared to the right. LABORATORY STUDIES: See MAR of note. DIAGNOSES: 1. Patient with acute hip fracture, left. 2. Chronic back pain with chronic opioid management. PLAN: 1. For left hip fracture, plan is for patient to proceed with surgical total hip arthroplasty with surgical team. 2. In the interim, since there is no IV access, we will continue hydromorphone 2 mg p.o. every 3 hours p.r.n. Once completed with surgery, we will attempt to wean as able. We will then follow up with her in the outpatient setting, hopefully within 7 to 10 days, to continue pain management. 3. Continue her multimodal analgesia with pentoxifylline and gabapentin. We will continue in the postoperative period as well. We will continue to follow along. If there are any questions or concerns, please let us know, if there are any issues with postsurgery pain control as well as transition to oral medications if needed. DICTATING PHYSICIAN: DONTA GOODEN M.D. [id number] PHY#: [id number] ID: [id number] JOB#: [id number] ACCT: [id number] cc:DONTA GOODEN M.D. > [facility]
[2018-06-13] MEDS: PENICILLIN V POTASSIUM 500 MG TABLET PO SCH ×4 (08:29→21:42)
[2018-06-13] MEDS: PENTOXIFYLLINE 400 MG TABLET.SA PO SCH ×3 (08:30→17:23)
[2018-06-13] MEDS ORDERED: UBIDECARENONE 60 MG PO SCH (10:00)
[2018-06-13] MEDS ORDERED: HYDROXYCHLOROQUINE SULFATE 200 MG TABLET PO SCH (10:00)
[2018-06-13] MEDS ORDERED: THROMBIN (BOVINE) TOPICAL 20000 UNIT VIAL ONE (10:12)
[2018-06-13] MEDS ORDERED: BUPIVACAINE INJ/PF LIPOSOME/PF 266 MG/20 ML SDV ONE (10:12)
[2018-06-13] MEDS ORDERED: THROMBIN (BOVINE) 5000 UNIT EPITAXIS KIT ONE (10:12)
[2018-06-13] MEDS ORDERED: PROPOFOL INJ 200 MG/20 ML VIAL IV ONE (11:10)
[2018-06-13] MEDS ORDERED: MIDAZOLAM 2 MG/2 ML INJ ONE (11:10)
[2018-06-13] MEDS ORDERED: FENTANYL CITRATE INJ/PF 250 MCG/5 ML AMPULE ONE (11:10)
[2018-06-13] MEDS ORDERED: HYDROMORPHONE HCL INJ/PF 2 MG/ML AMPULE ONE (11:11)
[2018-06-13] MEDS ORDERED: ACETAMINOPHEN 1,000 MG/100 ML RTUPB IV ONE (11:11)
[2018-06-13] MEDS ORDERED: TRANEXAMIC ACID INJ/PF 1,000 MG/10 ML SDV IV ONE ×2 (11:22→15:00)
[2018-06-13] MEDS ORDERED: CEFAZOLIN INJ 1 GM VIAL ONE (11:22)
[2018-06-13] MEDS ORDERED: MEPERIDINE HCL/PF INJ 25 MG/1 ML DISP.SYRIN IV PRN (12:02)
[2018-06-13] MEDS ORDERED: ONDANSETRON HCL INJ/PF 4 MG/2 ML SDV IV PRN ×2 (12:02→12:32)
[2018-06-13] MEDS ORDERED: FENTANYL CITRATE INJ/PF 100 MCG/2 ML AMPUL IV PRN ×3 (12:02)
[2018-06-13] MEDS ORDERED: DIPHENHYDRAMINE HCL 50 MG/ML VIAL IV PRN ×2 (12:02→12:32)
[2018-06-13] MEDS ORDERED: PROMETHAZINE HCL INJ 25 MG/1 ML VIAL IV PRN ×2 (12:02)
[2018-06-13] MEDS ORDERED: OXYCODONE-ACETAMINOPHEN 5-325 MG TABLET PO PRN ×2 (12:02)
--- NOTE | 2018-06-13 12:31 | Operative Report ---
Operative Report DATE OF SURGERY: 06/13/18 PREOPERATIVE DIAGNOSIS: Left femoral neck fracture OPERATION: Left hip arthroplasty SURGEON: AMA VALE ANESTHESIA: GA TISSUE REMOVED OR ALTERED: Femoral head to pathology ESTIMATED BLOOD LOSS: 100 PROCEDURE: Implants used: Femur: [place] Accolade 2 stem, size 7 Acetabular shell: 52 mm hemispherical shell Liner: 36 mm flat cross-link polyethylene liner Head: 36 mm chrome cobalt head -5 neck The patient is placed in a right lateral decubitus position on the operating table. The left lower extremity and hindquarter is prepped and draped in a sterile fashion. A curvilinear incision was made over the greater trochanter a posterior approach the hip was taken. The proximal femur is retracted anteriorly exposing the underlying femoral head in the acetabular fossa. The femoral head is removed using a corkscrew. Attention was next turned to the acetabulum. Soft tissues cleared off the acetabulum using electrocautery. The acetabulum was then prepared using a series of hemispherical reamers until a 52 millimeters reamer is seated. Subsequently a 52 millimeters Bradly titanium hemispherical shell is impacted into position and secured with one screw. A standard flat 36 millimeters cross- link liner is impacted into the shell. Attention was next turned to the femur. Access is gained to the femoral canal using a box osteotome to the piriformis fossa. The femur is then prepared using a series of broaches until a number 7 broach is seated. A trial reduction was now performed using a 36 millimeters head with and is 5 neck. Preoperative leg length was recreated and is excellent anterior posterior stability. A decision was made to proceed with the above construct. All trial implants were removed. The wound is irrigated with pulsed lavage. A number 7 stem is impacted into the femoral canal. A trial reduction was again performed with a 36 mm head and a -5 neck. Findings as previously. The hip was dislocated one last time and the final chrome-cobalt head is impacted onto the trunnion. The hip was reduced. Wound is copiously irrigated with pulsed lavage. Sent closed in layers using interrupted Vicryl followed by melany. A sterile dressing is applied and the patient's returned to recovery room in satisfactory patient.
[2018-06-13] MEDS ORDERED: OXYCODONE HCL IR 5 MG TABLET PO PRN (12:32)
[2018-06-13] MEDS ORDERED: ACETAMINOPHEN 325 MG TABLET PO PRN (12:32)
[2018-06-13] MEDS ORDERED: MAG HYDROX/AL HYDROX/SIMETH SUSP 30 ML UDCUP PO PRN (12:32)
[2018-06-13] MEDS ORDERED: ZOLPIDEM TARTRATE 5 MG TABLET PO PRN (12:32)
[2018-06-13] MEDS ORDERED: RINGERS SOLUTION,LACTATED 1,000 ML IV PRN ×2 (12:32)
[2018-06-13] MEDS ORDERED: FENTANYL CITRATE INJ/PF 100 MCG/2 ML AMPUL ONE (13:13)
--- NOTE | 2018-06-13 13:21 | RADIOLOGY REPORT (SQ) ---
EXAM DESCRIPTION: PELVIS AP COMPLETED DATE/TIME: 06/13/2018 12:57 pm REASON FOR STUDY: Post Op Long Cassette in PACU COMPARISON: None. NUMBER OF VIEWS: One view TECHNIQUE: Digital radiographic images of the pelvis post-procedure LIMITATIONS: None. FINDINGS: BONES: No worrisome or unexpected findings post-procedure. Mild arthritic changes suggest ed at the right hip. DEVICE: Total left hip arthroplasty. SOFT TISSUES: No worrisome findings. Expected postoperative soft tissue changes. IMPRESSION: SATISFACTORY POSTOPERATIVE PELVIS. TECHNICAL DOCUMENTATION: JOB ID: [id number] [employer]- All Rights Reserved Reading location - IP/workstation name: [email or web address]
[2018-06-13] MEDS ORDERED: GLYCOPYRROLATE INJ 0.4 MG/2 ML VIAL ONE (14:33)
[2018-06-13] MEDS ORDERED: NEOSTIGMINE METHYLSULFATE 10 MG/10 ML VIAL ONE (14:33)
[2018-06-13] MEDS: ONDANSETRON 4 MG TAB.RAPDIS PO PRN (15:32)
[2018-06-13] MEDS: IBUPROFEN 800 MG in NORMAL SALINE 250 ML IV SCH (17:19)
[2018-06-13] MEDS: CALCIUM CARBONATE 250 MG/VITAMIN D3 125 UNIT TABLET PO SCH (17:20)
[2018-06-13] MEDS: LACTOBACILLUS ACIDOPHILUS 250 MG TAB PO SCH ×2 (17:21→23:57)
[2018-06-13] MEDS: SENNOSIDES/DOCUSATE 8.6-50 MG 1 EACH TABLET PO SCH (17:22)
[2018-06-13] MEDS: METOCLOPRAMIDE HCL 10 MG TABLET PO PRN (17:22)
[2018-06-13] MEDS: HYDROXYCHLOROQUINE SULFATE 200 MG TABLET PO SCH (17:29)
[2018-06-13] MEDS: AMITRIPTYLINE HCL 25 MG TABLET PO SCH (21:41)
[2018-06-13] MEDS: MELATONIN 5 MG TABLET PO SCH (21:41)
[2018-06-13] MEDS: FAMOTIDINE 20 MG TABLET PO SCH (21:43)
[2018-06-13] MEDS: DIPHENHYDRAMINE HCL 25 MG CAPSULE PO PRN (21:56)
[2018-06-14] MEDS ORDERED: VANCOMYCIN HCL 1,000 MG in DEXTROSE 5%-WATER 250 ML IV ONE (00:32)
[2018-06-14] MEDS: CYCLOBENZAPRINE HCL 10 MG TABLET PO PRN (00:45)
[2018-06-14] MEDS: IBUPROFEN 800 MG in NORMAL SALINE 250 ML IV SCH ×3 (02:47→17:31)
[2018-06-14] MEDS: HYDROMORPHONE HCL 2 MG TABLET PO PRN ×4 (02:50→20:39)
[2018-06-14] MEDS: LEVOTHYROXINE SODIUM 0.088 MG TABLET PO SCH (06:11)
[2018-06-14] MEDS: GABAPENTIN 400 MG CAPSULE PO SCH ×4 (06:11→23:41)
[2018-06-14] MEDS: LANSOPRAZOLE 30 MG TAB.RAP.DR PO SCH (06:11)
[2018-06-14] MEDS: LACTOBACILLUS ACIDOPHILUS 250 MG TAB PO SCH ×4 (06:11→23:41)
[2018-06-14] MEDS: METOCLOPRAMIDE HCL 10 MG TABLET PO PRN ×2 (06:16→17:37)
--- NOTE | 2018-06-14 06:55 | PDOC PROGRESS REPORT ---
Subjective Progress Note for:: 06/14/18 Reason For Visit: LEFT FEMORAL NECK FRACTURE 57-year-old white female postop day 1 status post left hip arthroplasty for femoral neck fracture. Patient made limited progress with physical therapy yesterday. Physical Exam Vital Signs: Temp Pulse Resp BP Pulse Ox 36.8 C 97 18 117/57 L 98 06/13/18 23:00 06/13/18 23:00 06/13/18 23:00 06/13/18 23:00 06/14/18 00:06 Intake & Output 06/12/18 06/13/18 06/14/18 06:59 06:59 06:59 Intake Total 652 7136 Output Total 3475 5530 Balance -2823 1606 Weight 79.7 kg General appearance: PRESENT: no acute distress, mild distress Head exam: PRESENT: normocephalic Respiratory exam: PRESENT: unlabored Cardiovascular exam: PRESENT: RRR Pulses: PRESENT: +1 pedal pulses bilateral Vascular exam: PRESENT: normal capillary refill GI/Abdominal exam: PRESENT: soft Rectal exam: PRESENT: deferred Extremities exam: PRESENT: other - Left hip dressing is clean dry and intact. Leg lengths are equal. Distal neurovascular examination is intact. Neurological exam: PRESENT: alert, awake, oriented to person, oriented to place , oriented to time, oriented to situation. ABSENT: motor sensory deficit Psychiatric exam: PRESENT: appropriate affect, normal mood. ABSENT: homicidal ideation, suicidal ideation Skin exam: PRESENT: dry, intact, warm. ABSENT: cyanosis, rash Results Impressions: Hip X-Ray 06/11/18 08:32 IMPRESSION: Acute mildly displaced fracture of the left femoral neck that appears to be basi-cervical versus intratrochanteric Abdomen/Pelvis CT 06/11/18 09:28 IMPRESSION: 1. Acute displaced fracture of the left femoral neck. The fracture is somewhat oblique in nature and extends from a subcapital to transcervical location. 2. No evidence of splenic injury, however please note that evaluation for traumatic abdominal organ injury is somewhat limited with the lack of IV contrast. 3. Marked pneumobilia. Recommend correlation with any recent gallbladder surgery or other abdominal surgery. 4. Tiny focus of air in the anti dependent portion of the bladder. Recommend correlation with any recent catheterization. Chest X-Ray 06/11/18 09:28 IMPRESSION: NO ACUTE RADIOGRAPHIC FINDING IN THE CHEST. Pelvis X-Ray 06/13/18 12:34 IMPRESSION: SATISFACTORY POSTOPERATIVE PELVIS. Status: Imported from PACS Assessment & Plan - Diagnosis (1) Hip fracture, left Qualifiers: Encounter type: initial encounter Fracture type: closed Qualified Code(s) : S72.002A - Fracture of unspecified part of neck of left femur, initial encounter for closed fracture Is this a current diagnosis for this admission?: Yes Plan: 57-year-old white female postop day 1 left hip arthroplasty. Plan will be for mobilization with physical therapy and weightbearing as tolerated basis. Physical therapy is indicated the patient may be best served with [facility] facility [facility]. Social work has been consulted for this. - Time Time Spent with patient: 15-24 minutes Anticipated discharge: SNF Within: when bed available
[2018-06-14 08:03] LABS: ANION GAP 6 (5-19); BLOOD UREA NITROGEN 7 mg/dL (7-20); CALCIUM 8.1 mg/dL (8.4-10.2); CARBON DIOXIDE 27 mmol/L (22-30); CHLORIDE 106 mmol/L (98-107); GLUCOSE 110 mg/dL (75-110); POTASSIUM 4.1 mmol/L (3.6-5.0)
[2018-06-14 09:00] LABS: HEMATOCRIT 36.9 % (36.0-47.0); MEAN CORPUSCULAR HEMOGLOBIN 31.2 pg (27.0-33.4); MEAN CORPUSCULAR HGB CONC 33.9 g/dL (32.0-36.0); MEAN CORPUSCULAR VOLUME 92 fl (80-97); PLATELET COUNT 193 10^3/uL (150-450); RED BLOOD COUNT 4.01 10^6/uL (3.72-5.28); RED CELL DISTRIBUTION WIDTH 13.4 % (11.5-14.0); WHITE BLOOD COUNT 9.8 10^3/uL (4.0-10.5)
[2018-06-14 09:01] LABS: HEMOGLOBIN 12.5 g/dL (12.0-15.5)
[2018-06-14] MEDS: PENICILLIN V POTASSIUM 500 MG TABLET PO SCH ×4 (09:42→23:41)
[2018-06-14] MEDS: PENTOXIFYLLINE 400 MG TABLET.SA PO SCH ×3 (09:42→17:31)
[2018-06-14] MEDS: CALCIUM CARBONATE 250 MG/VITAMIN D3 125 UNIT TABLET PO SCH ×3 (09:42→17:31)
[2018-06-14] MEDS: SENNOSIDES/DOCUSATE 8.6-50 MG 1 EACH TABLET PO SCH ×2 (09:42→17:31)
[2018-06-14] MEDS: ASPIRIN 81 MG TABLET, ENT COATED PO SCH (09:42)
[2018-06-14] MEDS: PRENATAL VITAMIN W DHA CAPSULE PO SCH (09:44)
[2018-06-14] MEDS: HYDROXYCHLOROQUINE SULFATE 200 MG TABLET PO SCH (17:31)
[2018-06-14] MEDS: ONDANSETRON 4 MG TAB.RAPDIS PO PRN (17:49)
[2018-06-14] MEDS: MELATONIN 5 MG TABLET PO SCH (23:41)
[2018-06-14] MEDS: FAMOTIDINE 20 MG TABLET PO SCH (23:41)
[2018-06-14] MEDS: AMITRIPTYLINE HCL 25 MG TABLET PO SCH (23:41)
[2018-06-15] MEDS: HYDROMORPHONE HCL 2 MG TABLET PO PRN ×4 (02:10→18:53)
[2018-06-15] MEDS: IBUPROFEN 800 MG in NORMAL SALINE 250 ML IV SCH ×2 (02:10→11:19)
[2018-06-15 05:53] LABS: HEMATOCRIT 34.1 % (36.0-47.0); HEMOGLOBIN 11.7 g/dL (12.0-15.5); MEAN CORPUSCULAR HEMOGLOBIN 31.6 pg (27.0-33.4); MEAN CORPUSCULAR HGB CONC 34.4 g/dL (32.0-36.0); MEAN CORPUSCULAR VOLUME 92 fl (80-97); PLATELET COUNT 190 10^3/uL (150-450); RED BLOOD COUNT 3.71 10^6/uL (3.72-5.28); RED CELL DISTRIBUTION WIDTH 13.6 % (11.5-14.0); WHITE BLOOD COUNT 10.7 10^3/uL (4.0-10.5)
[2018-06-15] MEDS: LEVOTHYROXINE SODIUM 0.088 MG TABLET PO SCH (06:07)
[2018-06-15] MEDS: LACTOBACILLUS ACIDOPHILUS 250 MG TAB PO SCH ×3 (06:07→17:35)
[2018-06-15] MEDS: GABAPENTIN 400 MG CAPSULE PO SCH ×3 (06:07→17:35)
[2018-06-15] MEDS: LANSOPRAZOLE 30 MG TAB.RAP.DR PO SCH (06:08)
--- NOTE | 2018-06-15 07:13 | PDOC PROGRESS REPORT ---
Subjective Progress Note for:: 06/15/18 Reason For Visit: LEFT FEMORAL NECK FRACTURE 57-year-old white female postop day 2 left total hip arthroplasty for femoral neck fracture. Patient with minimal complaints this morning. Physical Exam Vital Signs: Temp Pulse Resp BP Pulse Ox 37.2 C 98 17 118/56 L 96 06/14/18 23:21 06/14/18 23:21 06/14/18 23:21 06/14/18 23:21 06/14/18 23:21 Intake & Output 06/14/18 06/15/18 06/16/18 06:59 06:59 06:59 Intake Total 7136 3209 Output Total 5530 600 Balance 1606 2609 Weight 79.7 kg 81 kg General appearance: PRESENT: no acute distress Head exam: PRESENT: normocephalic Respiratory exam: PRESENT: unlabored Cardiovascular exam: PRESENT: RRR Pulses: PRESENT: +1 pedal pulses bilateral Vascular exam: PRESENT: normal capillary refill Extremities exam: PRESENT: other - Left hip dressing clean dry and intact. Leg lengths are equal. Distal neurovascular examination is intact. Neurological exam: PRESENT: alert, awake, oriented to person, oriented to place , oriented to time, oriented to situation. ABSENT: motor sensory deficit Psychiatric exam: PRESENT: appropriate affect, normal mood. ABSENT: homicidal ideation, suicidal ideation Skin exam: PRESENT: dry, intact, warm. ABSENT: cyanosis, rash Results Laboratory Results: 06/15/18 05:28 06/14/18 07:30 06/14/18 06/14/18 06/14/18 05:38 05:38 07:30 WBC Cancelled RBC Cancelled Hgb Cancelled Hct Cancelled MCV Cancelled MCH Cancelled MCHC Cancelled RDW Cancelled Plt Count Cancelled Sodium Cancelled 139.0 Potassium Cancelled 4.1 Chloride Cancelled 106 Carbon Dioxide Cancelled 27 Anion Gap Cancelled 6 BUN Cancelled 7 Creatinine Cancelled 0.50 L Est GFR ( Amer) Cancelled > 60 Est GFR (Non-Af Amer) Cancelled > 60 Glucose Cancelled 110 Calcium Cancelled 8.1 L 06/14/18 06/15/18 08:44 05:28 WBC 9.8 10.7 H RBC 4.01 3.71 L Hgb 12.5 D 11.7 L Hct 36.9 34.1 L MCV 92 92 MCH 31.2 31.6 MCHC 33.9 34.4 RDW 13.4 13.6 Plt Count 193 190 Sodium Potassium Chloride Carbon Dioxide Anion Gap BUN Creatinine Est GFR ( Amer) Est GFR (Non-Af Amer) Glucose Calcium Impressions: Hip X-Ray 06/11/18 08:32 IMPRESSION: Acute mildly displaced fracture of the left femoral neck that appears to be basi-cervical versus intratrochanteric Abdomen/Pelvis CT 06/11/18 09:28 IMPRESSION: 1. Acute displaced fracture of the left femoral neck. The fracture is somewhat oblique in nature and extends from a subcapital to transcervical location. 2. No evidence of splenic injury, however please note that evaluation for traumatic abdominal organ injury is somewhat limited with the lack of IV contrast. 3. Marked pneumobilia. Recommend correlation with any recent gallbladder surgery or other abdominal surgery. 4. Tiny focus of air in the anti dependent portion of the bladder. Recommend correlation with any recent catheterization. Chest X-Ray 06/11/18 09:28 IMPRESSION: NO ACUTE RADIOGRAPHIC FINDING IN THE CHEST. Pelvis X-Ray 06/13/18 12:34 IMPRESSION: SATISFACTORY POSTOPERATIVE PELVIS. Status: Imported from PACS Assessment & Plan - Diagnosis (1) Hip fracture, left Qualifiers: Encounter type: initial encounter Fracture type: closed Qualified Code(s) : S72.002A - Fracture of unspecified part of neck of left femur, initial encounter for closed fracture Is this a current diagnosis for this admission?: Yes Plan: Patient making limited progress with physical therapy and weightbearing as tolerated amatory program. Anticipate the need for alf facility placement. Social work has been consulted for this. - Time Time Spent with patient: 15-24 minutes Anticipated discharge: SNF Within: when bed available
[2018-06-15] MEDS: PENTOXIFYLLINE 400 MG TABLET.SA PO SCH ×3 (09:06→15:43)
[2018-06-15] MEDS: CALCIUM CARBONATE 250 MG/VITAMIN D3 125 UNIT TABLET PO SCH ×3 (09:06→17:35)
[2018-06-15] MEDS: SENNOSIDES/DOCUSATE 8.6-50 MG 1 EACH TABLET PO SCH ×2 (09:06→17:35)
[2018-06-15] MEDS: PENICILLIN V POTASSIUM 500 MG TABLET PO SCH ×4 (09:06→21:36)
[2018-06-15] MEDS: PRENATAL VITAMIN W DHA CAPSULE PO SCH (09:06)
[2018-06-15] MEDS: ASPIRIN 81 MG TABLET, ENT COATED PO SCH (09:06)
[2018-06-15] MEDS: ONDANSETRON 4 MG TAB.RAPDIS PO PRN ×2 (11:17→17:50)
[2018-06-15] MEDS: DIPHENHYDRAMINE HCL 25 MG CAPSULE PO PRN ×2 (11:30→21:36)
--- NOTE | 2018-06-15 13:32 | PDOC CONSULTATION ---
Consultation Consult Date: 06/15/18 Attending physician:: ALEXANDRA DE LA PAZ Consult reason:: Medical management History of Present Illness Admission Date/PCP: 06/12/18 07:00 ALEXANDRA DE LA PAZ Patient complains of: Hx of fall at home and having left hip hip pain- confirmed to be due to displaced left femoral neck fracture History of Present Illness: CAROLINA MONTEZ is a 57 year old female with hx of asthma/SLE/IBS/ Hypothyroidism/GERD/Cryoglobulinemia/Sjogren's syndrome/Fibromyalgia/Chronic back pain and neck pain/Gastroparesis, who just established care with my practice last month. She was said to have tripped and fell at home and sustained displaced left femoral neck fracture. She had total left hip arthroplasty on 06/14/[address] Adkins.She is being followed by Dr Ferris for pain management and Drs Lucille/Irene are following up for orthopedic needs. Recommendation has been made for nursing home placement for REHAB. Past Medical History Cardiac Medical History: Denies: Coronary Artery Disease, Myocardial Infarction, Hypertension Pulmonary Medical History: Reports: Asthma Denies: Bronchitis, Chronic Obstructive Pulmonary Disease (COPD), Pneumonia Neurological Medical History: Denies: Seizures Endocrine Medical History: Reports: Hypothyroidism Malignancy Medical History: Reports: Ovarian Cancer GI Medical History: Reports: Gastroesophageal Reflux Disease Musculoskeltal Medical History: Reports: Arthritis, Fibromyalgia, Other - Chronic back pain, osteoporosis Hematology: Denies: Anemia Past Surgical History Past Surgical History: Reports: Appendectomy, Cholecystectomy, Hysterectomy, Other - Surgery to remove adhesions Social History Lives with: Spouse/Significant other Smoking Status: Never Smoker Frequency of Alcohol Use: None Hx Recreational Drug Use: No Hx Prescription Drug Abuse: No Family History Family History: Reviewed & Not Pertinent Parental Family History Reviewed: Yes Children Family History Reviewed: Yes Sibling(s) Family History Reviewed.: Yes Medication/Allergy Home Medications: Famotidine [Pepcid 20 mg Tablet] 20 mg PO QHS 11/16/11 Hydroxychloroquine Sulfate [Plaquenil 200 mg Tablet] 200 mg PO DAILY 01/09/15 Pentoxifylline [Pentoxil] 400 mg PO AC 01/09/15 Gabapentin [Neurontin 400 mg Capsule] 800 mg PO TID@06,,11/09/15 Adrenal Desiccated Tablet 1 tab PO BID@,12 06/11/18 Calcium/D3/Argnin/Inos/Silicon [Bone Density Calcium + D Cplt] 2 each PO TID Gabapentin [Neurontin 400 mg Capsule] 1,200 mg PO DAILY@0000 06/11/18 L.acid/L.casei/B.bif/B.sandy/Fos [Probiotic Blend Capsule] 1 each PO Q6 06/11/18 Levothyroxine Sodium [Synthroid 0.088 mg Tablet] 88 mcg PO Q6AM 06/11/18 Magnesium Citrate 100 mg PO Q6 06/11/18 Melatonin [Melatonin 5 mg Tablet] 5 mg PO QHS 06/11/18 Metoclopramide HCl [Reglan] 5 mg PO ACHSP PRN 06/11/18 Ondansetron [Ondansetron Odt] 8 mg SL BIDP PRN 06/11/18 Penicillin V Potassium [Penicillin Vk 500 mg Tablet] 500 mg PO QID MDD FILLED FOR 7DS 06/11/18 Potassium Gluconate [Potassium] 99 mg PO Q6 06/11/18 Ubidecarenone [Co Q-10] 60 mg PO DAILY 06/11/18 Albuterol Sulfate [Albuterol Sulfate 2.5mg/3 mL] 2.5 mg IH Q4HP PRN 06/12/18 Albuterol Sulfate [Ventolin HFA MDI 18 GM] 2 puff IH Q4HP PRN 06/12/18 Amitriptyline HCl [Elavil 25 mg Tablet] 25 mg PO QHS 06/12/18 Hydromorphone HCl [Dilaudid 2 mg Tablet] 2 mg PO Q6HP PRN 06/12/18 Allergies/Adverse Reactions: caffeine [Caffeine] Allergy (Severe, Verified 06/11/18 08:45) sets off autoimmune response ethyl chloride [Ethyl Chloride] Allergy (Severe, Verified 06/11/18 08:45) Anaphylaxis iodine [Iodine] Allergy (Severe, Verified 06/11/18 08:45) Anaphylaxis lidocaine HCl [From Xylocaine] Allergy (Severe, Verified 06/11/18 08:45) Anaphylaxis morphine [Morphine] Allergy (Severe, Verified 06/11/18 08:45) swelling, AMS pentazocine lactate [From Talwin] Allergy (Severe, Verified 06/11/18 08:45) Hallucinations procaine HCl [From Novocain] Allergy (Severe, Verified 06/11/18 08:45) Anaphylaxis carisoprodol [From Soma] Allergy (Intermediate, Verified 06/11/18 08:45) muscle problems Iodinated Contrast- Oral and IV Dye [IV Dye, Iodine Containing] Allergy ( Intermediate, Verified 06/11/18 08:45) Anaphylaxis pentazocine [Pentazocine] Allergy (Intermediate, Verified 06/11/18 08:45) Hallucinations adhesive tape [Adhesive Tape] Allergy (Mild, Verified 06/11/18 08:45) sores, skin peeled off paraben [Paraben] Allergy (Mild, Verified 06/11/18 08:45) rash ampicillin [Ampicillin] Allergy (Unknown, Verified 06/11/18 08:45) convulsions atropine [Atropine] Allergy (Unknown, Verified 06/11/18 08:45) unknown chicken derived [Chicken Derived] Allergy (Unknown, Verified 06/11/18 08:45) unknown pineapple [Pineapple] Allergy (Unknown, Verified 06/11/18 08:45) unknown wheat [Wheat] Allergy (Unknown, Verified 06/11/18 08:45) unknown acetic acid [Acetic Acid] Adverse Reaction (Mild, Verified 06/11/18 08:45) flu like symptoms hops Allergy (Severe, Uncoded 06/11/18 08:45) severe asthma perfume Ht 52 Allergy (Severe, Uncoded 06/11/18 08:45) Anaphylaxis acrylic Allergy (Intermediate, Uncoded 06/11/18 08:45) swelling fluoride Allergy (Unknown, Uncoded 06/11/18 08:45) unknown Review of Systems Constitutional: PRESENT: as per HPI Eyes: PRESENT: as per HPI Ears: PRESENT: as per HPI Nose, Mouth, and Throat: PRESENT: as per HPI Breasts: PRESENT: as per HPI Cardiovascular: PRESENT: as per HPI Respiratory: PRESENT: as per HPI Gastrointestinal: PRESENT: as per HPI Genitourinary: PRESENT: as per HPI Musculoskeletal: PRESENT: back pain - Left hip pain Integumentary: PRESENT: as per HPI Neurological: PRESENT: as per HPI Psychiatric: PRESENT: as per HPI Endocrine: PRESENT: as per HPI Hematologic/Lymphatic: PRESENT: as per HPI Physical Exam Vital Signs: Temp Pulse Resp BP Pulse Ox 98.2 F 101 H 14 124/53 L 100 06/15/18 11:13 06/15/18 11:13 06/15/18 11:13 06/15/18 11:13 06/15/18 11:13 Intake & Output 06/14/18 06/15/18 06/16/18 06:59 06:59 06:59 Intake Total 7120 3209 250 Output Total 5547 600 Balance 1606 9684 250 Weight 79.7 kg 81 kg General appearance: PRESENT: no acute distress, cooperative, well-developed, well-nourished Head exam: PRESENT: atraumatic, normocephalic Eye exam: PRESENT: EOMI, PERRLA Ear exam: PRESENT: normal external ear exam, TM's normal bilaterally Mouth exam: PRESENT: moist, neck supple, tongue midline Neck exam: PRESENT: full ROM Respiratory exam: PRESENT: clear to auscultation angel, symmetrical Cardiovascular exam: PRESENT: +S1, +S2 Pulses: PRESENT: +2 pedal pulses bilateral GI/Abdominal exam: PRESENT: normal bowel sounds, soft Rectal exam: PRESENT: deferred Extremities exam: PRESENT: tenderness Additional comments: Tender left hip, covered with dressing, not soaked. Neurological exam: PRESENT: alert, awake, oriented to person, oriented to place , oriented to time Psychiatric exam: PRESENT: normal mood Results Laboratory Results: 06/15/18 05:28 06/14/18 07:30 06/15/18 05:28 WBC 10.7 H RBC 3.71 L Hgb 11.7 L Hct 34.1 L MCV 92 MCH 31.6 MCHC 34.4 RDW 13.6 Plt Count 190 Impressions: Hip X-Ray 06/11/18 08:32 IMPRESSION: Acute mildly displaced fracture of the left femoral neck that appears to be basi-cervical versus intratrochanteric Abdomen/Pelvis CT 06/11/18 09:28 IMPRESSION: 1. Acute displaced fracture of the left femoral neck. The fracture is somewhat oblique in nature and extends from a subcapital to transcervical location. 2. No evidence of splenic injury, however please note that evaluation for traumatic abdominal organ injury is somewhat limited with the lack of IV contrast. 3. Marked pneumobilia. Recommend correlation with any recent gallbladder surgery or other abdominal surgery. 4. Tiny focus of air in the anti dependent portion of the bladder. Recommend correlation with any recent catheterization. Chest X-Ray 06/11/18 09:28 IMPRESSION: NO ACUTE RADIOGRAPHIC FINDING IN THE CHEST. Pelvis X-Ray 06/13/18 12:34 IMPRESSION: SATISFACTORY POSTOPERATIVE PELVIS. Assessment & Plan - Diagnosis (1) Hip fracture, left Qualifiers: Encounter type: initial encounter Fracture type: closed Qualified Code(s) : S72.002A - Fracture of unspecified part of neck of left femur, initial encounter for closed fracture Is this a current diagnosis for this admission?: Yes Plan: Ct with Oxycodone 5 mg q6h po prn; Dilaudid 4mg q4h prn po; Tylenol 650 mg q4h po prn.PT/OT; f/u Massiel Adkins and Irene. For halfway placement for REHAB on discharge. (2) Asthma Qualifiers: Asthma severity: unspecified severity Is this a current diagnosis for this admission?: Yes Plan: Ct with Albuterol nebs 2.5 mg q4h prn; Albuterol hFA- 2 puffs q4h prn. (3) Hypothyroidism Qualifiers: Hypothyroidism type: unspecified Qualified Code(s): E03.9 - Hypothyroidism , unspecified Is this a current diagnosis for this admission?: Yes Plan: Ct with Levothyroxine 88 mcg qd po. (4) Systemic lupus erythematosus Qualifiers: Systemic lupus erythematosus type: unspecified Is this a current diagnosis for this admission?: Yes Plan: Ct with Hydroxychloroquine 200mg qpm po. (5) Cryoglobulinemia Is this a current diagnosis for this admission?: Yes Plan: Ct with Pentoxifylline 400 mg QAC PO. (6) Fibromyalgia Is this a current diagnosis for this admission?: Yes Plan: Ct with Gabapentin 800 mg TID po; Dilaudin 4mg q4h po prn; Oxycodone 5 mg q6h po prn; Flexeril 10 mg q8h po prn. (7) Reflux esophagitis Is this a current diagnosis for this admission?: Yes Plan: Ct with Prevacid 30 mg qd po; Pepcid 20 mg qhs po. (8) Gastroparesis Is this a current diagnosis for this admission?: Yes Plan: Ct with Reglan 5 mg QAC,HS po; Zofran 4 mg q6h po prn. (9) DVT prophylaxis Is this a current diagnosis for this admission?: Yes Plan: Ct with Lovenox 40 mg qd subcut; SCD. - Time Time Spent: 30 to 50 Minutes Medications reviewed and adjusted accordingly: Yes Anticipated discharge: SNF Within: within 72 hours - Inpatient Certification Medical Necessity: Need for Pain Control, Need for Surgery
[2018-06-15] MEDS: HYDROXYCHLOROQUINE SULFATE 200 MG TABLET PO SCH (17:35)
[2018-06-15] MEDS: METOCLOPRAMIDE HCL 10 MG TABLET PO PRN (17:57)
[2018-06-15] MEDS: MELATONIN 5 MG TABLET PO SCH (21:36)
[2018-06-15] MEDS: FAMOTIDINE 20 MG TABLET PO SCH (21:36)
[2018-06-15] MEDS: AMITRIPTYLINE HCL 25 MG TABLET PO SCH (21:36)
[2018-06-15] MEDS: CYCLOBENZAPRINE HCL 10 MG TABLET PO PRN (21:36)
[2018-06-16] MEDS: GABAPENTIN 400 MG CAPSULE PO SCH ×5 (03:31→17:55)
[2018-06-16] MEDS: LACTOBACILLUS ACIDOPHILUS 250 MG TAB PO SCH ×4 (03:40→17:55)
[2018-06-16] MEDS: HYDROMORPHONE HCL 2 MG TABLET PO PRN ×3 (03:41→18:03)
[2018-06-16 05:04] LABS: HEMATOCRIT 36.5 % (36.0-47.0); HEMOGLOBIN 12.5 g/dL (12.0-15.5); MEAN CORPUSCULAR HEMOGLOBIN 31.2 pg (27.0-33.4); MEAN CORPUSCULAR HGB CONC 34.2 g/dL (32.0-36.0); MEAN CORPUSCULAR VOLUME 91 fl (80-97); PLATELET COUNT 230 10^3/uL (150-450); RED BLOOD COUNT 4.01 10^6/uL (3.72-5.28); RED CELL DISTRIBUTION WIDTH 13.4 % (11.5-14.0); WHITE BLOOD COUNT 9.5 10^3/uL (4.0-10.5)
[2018-06-16] MEDS: LEVOTHYROXINE SODIUM 0.088 MG TABLET PO SCH (05:25)
[2018-06-16] MEDS: LANSOPRAZOLE 30 MG TAB.RAP.DR PO SCH (05:25)
[2018-06-16] MEDS: METOCLOPRAMIDE HCL 10 MG TABLET PO PRN (05:25)
--- NOTE | 2018-06-16 06:31 | PDOC PROGRESS REPORT ---
Subjective Progress Note for:: 06/16/18 Reason For Visit: LEFT FEMORAL NECK FRACTURE 57-year-old white female postop day 3 status post left hip arthroplasty for femoral neck fracture. No new events overnight. Physical Exam Vital Signs: Temp Pulse Resp BP Pulse Ox 36.9 C 114 H 16 108/56 L 100 06/16/18 00:11 06/16/18 00:11 06/16/18 00:11 06/16/18 00:11 06/16/18 00:11 Intake & Output 06/14/18 06/15/18 06/16/18 06:59 06:59 06:59 Intake Total 7136 3209 2877 Output Total 5530 600 Balance 1606 2609 2877 Weight 79.7 kg 81 kg 82.7 kg General appearance: PRESENT: no acute distress, mild distress Head exam: PRESENT: normocephalic Respiratory exam: PRESENT: unlabored Cardiovascular exam: PRESENT: RRR Vascular exam: PRESENT: normal capillary refill GI/Abdominal exam: PRESENT: soft Rectal exam: PRESENT: deferred Extremities exam: PRESENT: other - Left postoperative dressing intact and clean and dry. Leg lengths are equal. Distal neurovascular examination is intact. Neurological exam: PRESENT: alert, awake, oriented to person, oriented to place , oriented to time, oriented to situation. ABSENT: motor sensory deficit Psychiatric exam: PRESENT: appropriate affect, normal mood. ABSENT: homicidal ideation, suicidal ideation Skin exam: PRESENT: dry, intact, warm. ABSENT: cyanosis, rash Results Laboratory Results: 06/16/18 04:25 06/14/18 07:30 06/16/18 04:25 WBC 9.5 RBC 4.01 Hgb 12.5 Hct 36.5 MCV 91 MCH 31.2 MCHC 34.2 RDW 13.4 Plt Count 230 Impressions: Hip X-Ray 06/11/18 08:32 IMPRESSION: Acute mildly displaced fracture of the left femoral neck that appears to be basi-cervical versus intratrochanteric Abdomen/Pelvis CT 06/11/18 09:28 IMPRESSION: 1. Acute displaced fracture of the left femoral neck. The fracture is somewhat oblique in nature and extends from a subcapital to transcervical location. 2. No evidence of splenic injury, however please note that evaluation for traumatic abdominal organ injury is somewhat limited with the lack of IV contrast. 3. Marked pneumobilia. Recommend correlation with any recent gallbladder surgery or other abdominal surgery. 4. Tiny focus of air in the anti dependent portion of the bladder. Recommend correlation with any recent catheterization. Chest X-Ray 06/11/18 09:28 IMPRESSION: NO ACUTE RADIOGRAPHIC FINDING IN THE CHEST. Pelvis X-Ray 06/13/18 12:34 IMPRESSION: SATISFACTORY POSTOPERATIVE PELVIS. Status: Imported from PACS Assessment & Plan - Diagnosis (1) Hip fracture, left Qualifiers: Encounter type: initial encounter Fracture type: closed Qualified Code(s) : S72.002A - Fracture of unspecified part of neck of left femur, initial encounter for closed fracture Is this a current diagnosis for this admission?: Yes Plan: Uneventful postoperative course. Limited progress with physical therapy. Awaiting half-way facility placement.
[2018-06-16] MEDS: ENOXAPARIN SODIUM INJ 40 MG/0.4 ML DISP.SYRIN SUBCUT SCH (08:31)
[2018-06-16] MEDS: PENTOXIFYLLINE 400 MG TABLET.SA PO SCH ×3 (08:31→17:55)
[2018-06-16] MEDS: PENICILLIN V POTASSIUM 500 MG TABLET PO SCH ×4 (08:31→21:15)
[2018-06-16] MEDS: ASPIRIN 81 MG TABLET, ENT COATED PO SCH (09:19)
[2018-06-16] MEDS: CALCIUM CARBONATE 250 MG/VITAMIN D3 125 UNIT TABLET PO SCH ×3 (09:19→17:55)
[2018-06-16] MEDS: PRENATAL VITAMIN W DHA CAPSULE PO SCH (09:19)
[2018-06-16] MEDS: SENNOSIDES/DOCUSATE 8.6-50 MG 1 EACH TABLET PO SCH ×2 (09:19→17:55)
--- NOTE | 2018-06-16 16:58 | PDOC PROGRESS REPORT ---
Subjective Progress Note for:: 06/16/18 Subjective:: She has no complaints. Today is day 3 post-op. [facility] is awaiting approval from her INS before they will offer her bed for SNF placement. Reason For Visit: LEFT FEMORAL NECK FRACTURE Physical Exam Vital Signs: Temp Pulse Resp BP Pulse Ox 100.0 F 104 H 20 141/85 H 98 06/16/18 15:33 06/16/18 15:33 06/16/18 15:33 06/16/18 15:33 06/16/18 15:33 Intake & Output 06/15/18 06/16/18 06/17/18 06:59 06:59 06:59 Intake Total 3209 2877 Output Total 600 Balance 2609 2877 Weight 81 kg 82.7 kg General appearance: PRESENT: no acute distress, cooperative, well-developed, well-nourished Head exam: PRESENT: atraumatic, normocephalic Eye exam: PRESENT: EOMI, PERRLA Mouth exam: PRESENT: moist, neck supple, tongue midline Neck exam: PRESENT: full ROM Respiratory exam: PRESENT: clear to auscultation angel, symmetrical Cardiovascular exam: PRESENT: +S1, +S2 Pulses: PRESENT: +2 pedal pulses bilateral GI/Abdominal exam: PRESENT: normal bowel sounds, soft Rectal exam: PRESENT: deferred Neurological exam: PRESENT: alert, awake, oriented to person, oriented to place , oriented to time Psychiatric exam: PRESENT: normal mood Results Laboratory Results: 06/16/18 04:25 06/14/18 07:30 06/16/18 04:25 WBC 9.5 RBC 4.01 Hgb 12.5 Hct 36.5 MCV 91 MCH 31.2 MCHC 34.2 RDW 13.4 Plt Count 230 Impressions: Hip X-Ray 06/11/18 08:32 IMPRESSION: Acute mildly displaced fracture of the left femoral neck that appears to be basi-cervical versus intratrochanteric Abdomen/Pelvis CT 06/11/18 09:28 IMPRESSION: 1. Acute displaced fracture of the left femoral neck. The fracture is somewhat oblique in nature and extends from a subcapital to transcervical location. 2. No evidence of splenic injury, however please note that evaluation for traumatic abdominal organ injury is somewhat limited with the lack of IV contrast. 3. Marked pneumobilia. Recommend correlation with any recent gallbladder surgery or other abdominal surgery. 4. Tiny focus of air in the anti dependent portion of the bladder. Recommend correlation with any recent catheterization. Chest X-Ray 06/11/18 09:28 IMPRESSION: NO ACUTE RADIOGRAPHIC FINDING IN THE CHEST. Pelvis X-Ray 06/13/18 12:34 IMPRESSION: SATISFACTORY POSTOPERATIVE PELVIS. Assessment & Plan - Diagnosis (1) Hip fracture, left Qualifiers: Encounter type: initial encounter Fracture type: closed Qualified Code(s) : S72.002A - Fracture of unspecified part of neck of left femur, initial encounter for closed fracture Is this a current diagnosis for this admission?: Yes Plan: Ct with Oxycodone 5 mg q6h po prn; Dilaudid 4mg q4h prn po; Tylenol 650 mg q4h po prn.PT/OT; f/u Massiel Ochoa. For custodial placement for REHAB on discharge. (2) Asthma Qualifiers: Asthma severity: unspecified severity Is this a current diagnosis for this admission?: Yes Plan: Ct with Albuterol nebs 2.5 mg q4h prn; Albuterol hFA- 2 puffs q4h prn. (3) Hypothyroidism Qualifiers: Hypothyroidism type: unspecified Qualified Code(s): E03.9 - Hypothyroidism , unspecified Is this a current diagnosis for this admission?: Yes Plan: Ct with Levothyroxine 88 mcg qd po. (4) Systemic lupus erythematosus Qualifiers: Systemic lupus erythematosus type: unspecified Is this a current diagnosis for this admission?: Yes Plan: Ct with Hydroxychloroquine 200mg qpm po. (5) Cryoglobulinemia Is this a current diagnosis for this admission?: Yes Plan: Ct with Pentoxifylline 400 mg QAC PO. (6) Fibromyalgia Is this a current diagnosis for this admission?: Yes Plan: Ct with Gabapentin 800 mg TID po; Dilaudin 4mg q4h po prn; Oxycodone 5 mg q6h po prn; Flexeril 10 mg q8h po prn. (7) Reflux esophagitis Is this a current diagnosis for this admission?: Yes Plan: Ct with Prevacid 30 mg qd po; Pepcid 20 mg qhs po. (8) Gastroparesis Is this a current diagnosis for this admission?: Yes Plan: Ct with Reglan 5 mg QAC,HS po; Zofran 4 mg q6h po prn. (9) DVT prophylaxis Is this a current diagnosis for this admission?: Yes Plan: Ct with Lovenox 40 mg qd subcut; SCD.
[2018-06-16] MEDS: HYDROXYCHLOROQUINE SULFATE 200 MG TABLET PO SCH (17:55)
[2018-06-16] MEDS: MELATONIN 5 MG TABLET PO SCH (21:15)
[2018-06-16] MEDS: AMITRIPTYLINE HCL 25 MG TABLET PO SCH (21:15)
[2018-06-16] MEDS: CYCLOBENZAPRINE HCL 10 MG TABLET PO PRN (21:15)
[2018-06-16] MEDS: FAMOTIDINE 20 MG TABLET PO SCH (21:15)
[2018-06-17] MEDS: GABAPENTIN 400 MG CAPSULE PO SCH ×4 (00:35→17:17)
[2018-06-17] MEDS: HYDROMORPHONE HCL 2 MG TABLET PO PRN ×5 (00:36→20:45)
[2018-06-17] MEDS: LACTOBACILLUS ACIDOPHILUS 250 MG TAB PO SCH ×4 (00:36→17:17)
[2018-06-17] MEDS: LEVOTHYROXINE SODIUM 0.088 MG TABLET PO SCH (05:01)
[2018-06-17] MEDS: LANSOPRAZOLE 30 MG TAB.RAP.DR PO SCH (05:01)
[2018-06-17] MEDS: ENOXAPARIN SODIUM INJ 40 MG/0.4 ML DISP.SYRIN SUBCUT SCH (08:59)
[2018-06-17] MEDS: PRENATAL VITAMIN W DHA CAPSULE PO SCH (09:00)
[2018-06-17] MEDS: PENICILLIN V POTASSIUM 500 MG TABLET PO SCH ×4 (09:00→21:00)
[2018-06-17] MEDS: SENNOSIDES/DOCUSATE 8.6-50 MG 1 EACH TABLET PO SCH ×2 (09:00→17:17)
[2018-06-17] MEDS: PENTOXIFYLLINE 400 MG TABLET.SA PO SCH ×3 (09:00→15:09)
[2018-06-17] MEDS: ASPIRIN 81 MG TABLET, ENT COATED PO SCH (09:00)
[2018-06-17] MEDS: CALCIUM CARBONATE 250 MG/VITAMIN D3 125 UNIT TABLET PO SCH ×3 (09:00→17:17)
[2018-06-17] MEDS: ONDANSETRON 4 MG TAB.RAPDIS PO PRN ×2 (10:13→17:17)
[2018-06-17] MEDS: CYCLOBENZAPRINE HCL 10 MG TABLET PO PRN (13:41)
[2018-06-17] MEDS: METOCLOPRAMIDE HCL 10 MG TABLET PO PRN (17:16)
[2018-06-17] MEDS: HYDROXYCHLOROQUINE SULFATE 200 MG TABLET PO SCH (17:21)
[2018-06-17] MEDS: MELATONIN 5 MG TABLET PO SCH (21:00)
[2018-06-17] MEDS: AMITRIPTYLINE HCL 25 MG TABLET PO SCH (21:00)
[2018-06-17] MEDS: FAMOTIDINE 20 MG TABLET PO SCH (21:00)
[2018-06-18] MEDS: LACTOBACILLUS ACIDOPHILUS 250 MG TAB PO SCH ×5 (03:16→23:37)
[2018-06-18] MEDS: GABAPENTIN 400 MG CAPSULE PO SCH ×5 (03:19→23:36)
[2018-06-18] MEDS: CYCLOBENZAPRINE HCL 10 MG TABLET PO PRN ×3 (03:20→21:26)
[2018-06-18] MEDS: HYDROMORPHONE HCL 2 MG TABLET PO PRN ×5 (03:20→23:36)
[2018-06-18] MEDS: LEVOTHYROXINE SODIUM 0.088 MG TABLET PO SCH (06:12)
[2018-06-18] MEDS: LANSOPRAZOLE 30 MG TAB.RAP.DR PO SCH (06:17)
[2018-06-18] MEDS: ENOXAPARIN SODIUM INJ 40 MG/0.4 ML DISP.SYRIN SUBCUT SCH (07:58)
[2018-06-18] MEDS: PENICILLIN V POTASSIUM 500 MG TABLET PO SCH ×4 (08:01→21:26)
[2018-06-18] MEDS: PENTOXIFYLLINE 400 MG TABLET.SA PO SCH ×3 (08:01→15:26)
--- NOTE | 2018-06-18 08:14 | PDOC TRANSFER SUMMARY ---
General - Admit/Disc Date/PCP Admission Date/Primary Care Provider: 06/12/18 07:00 ALEXANDRA DE LA PAZ Discharge Date: 06/18/18 - Discharge Diagnosis (1) Hip fracture, left Is this a current diagnosis for this admission?: Yes - Additional Information Discharge Diet: As Tolerated, Regular Discharge Activity: Balance Activity w/Rest, No Driving, No tub bath Home Medications: Famotidine [Pepcid 20 mg Tablet] 20 mg PO QHS 11/16/11 Hydroxychloroquine Sulfate [Plaquenil 200 mg Tablet] 200 mg PO DAILY 01/09/15 Pentoxifylline [Pentoxil] 400 mg PO AC 01/09/15 Gabapentin [Neurontin 400 mg Capsule] 800 mg PO TID@,,11/09/15 Adrenal Desiccated Tablet 1 tab PO BID@,06/11/18 Calcium/D3/Argnin/Inos/Silicon [Bone Density Calcium + D Tablet] 2 each PO TID 06/11/18 Gabapentin [Neurontin 400 mg Capsule] 1,200 mg PO DAILY@0000 06/11/18 L.acid/L.casei/B.bif/B.sandy/Fos [Probiotic Blend Capsule] 1 each PO Q6 06/11/18 Levothyroxine Sodium [Synthroid 0.088 mg Tablet] 88 mcg PO Q6AM 06/11/18 Magnesium Citrate 100 mg PO Q6 06/11/18 Melatonin [Melatonin 5 mg Tablet] 5 mg PO QHS 06/11/18 Metoclopramide HCl [Reglan] 5 mg PO ACHSP PRN 06/11/18 Ondansetron [Ondansetron Odt] 8 mg SL BIDP PRN 06/11/18 Penicillin V Potassium [Penicillin Vk 500 mg Tablet] 500 mg PO QID MDD FILLED FOR 7DS 06/11/18 Potassium Gluconate [Potassium] 99 mg PO Q6 06/11/18 Ubidecarenone [Co Q-10] 60 mg PO DAILY 06/11/18 Albuterol Sulfate [Albuterol Sulfate 2.5mg/3 mL] 2.5 mg IH Q4HP PRN 06/12/18 Albuterol Sulfate [Ventolin HFA MDI 18 GM] 2 puff IH Q4HP PRN 06/12/18 Amitriptyline HCl [Elavil 25 mg Tablet] 25 mg PO QHS 06/12/18 Hydromorphone HCl [Dilaudid 2 mg Tablet] 2 mg PO Q6HP PRN 06/12/18 Aspirin [Ecotrin 81 mg EC Tablet] 81 mg PO DAILY tabec 06/18/18 Hydromorphone HCl [Dilaudid 2 mg Tablet] 4 mg PO Q4HP PRN tablet 06/18/18 History of Present Illness Admission Date/PCP: 06/12/18 07:00 ALEXANDRA DE LA PAZ History of Present Illness: CAROLINA MONTEZ is a 57 year old female who presents status post a fall with a left femoral neck fracture. Patient is admitted to the orthopedic service for fracture management. Hospital Course Hospital Course: Patient is admitted to the orthopedic service and subsequently taken to the operating room for treatment of a left femoral neck fracture. She undergoes uncomplicated left hip arthroplasty. She is returned to floor in satisfactory condition. Progress with physical therapy is relatively slow but she continues on a weightbearing as tolerated ambulatory program. Physical Exam Vital Signs: Temp Pulse Resp BP Pulse Ox 36.8 C 98 16 134/74 H 90 L 06/17/18 23:42 06/17/18 23:42 06/17/18 23:42 06/17/18 23:42 06/17/18 23:42 Intake & Output 06/17/18 06/18/18 06/19/18 06:59 06:59 06:59 Intake Total 920 1082 Balance 920 1082 Weight 82 kg 81.5 kg General appearance: PRESENT: no acute distress, mild distress Head exam: PRESENT: normocephalic Respiratory exam: PRESENT: unlabored Cardiovascular exam: PRESENT: RRR Pulses: PRESENT: +1 pedal pulses bilateral Vascular exam: PRESENT: normal capillary refill GI/Abdominal exam: PRESENT: soft Rectal exam: PRESENT: deferred Musculoskeletal exam: PRESENT: other - Left hip dressing remains clean dry and intact. Leg lengths are equal. Distal neurovascular examination is intact. Neurological exam: PRESENT: alert, awake, oriented to person, oriented to place , oriented to time, oriented to situation. ABSENT: motor sensory deficit Psychiatric exam: PRESENT: appropriate affect, normal mood. ABSENT: homicidal ideation, suicidal ideation Skin exam: PRESENT: dry, intact, warm. ABSENT: cyanosis, rash Results Laboratory Results: 06/16/18 04:25 06/14/18 07:30 Impressions: Hip X-Ray 06/11/18 08:32 IMPRESSION: Acute mildly displaced fracture of the left femoral neck that appears to be basi-cervical versus intratrochanteric Abdomen/Pelvis CT 06/11/18 09:28 IMPRESSION: 1. Acute displaced fracture of the left femoral neck. The fracture is somewhat oblique in nature and extends from a subcapital to transcervical location. 2. No evidence of splenic injury, however please note that evaluation for traumatic abdominal organ injury is somewhat limited with the lack of IV contrast. 3. Marked pneumobilia. Recommend correlation with any recent gallbladder surgery or other abdominal surgery. 4. Tiny focus of air in the anti dependent portion of the bladder. Recommend correlation with any recent catheterization. Chest X-Ray 06/11/18 09:28 IMPRESSION: NO ACUTE RADIOGRAPHIC FINDING IN THE CHEST. Pelvis X-Ray 06/13/18 12:34 IMPRESSION: SATISFACTORY POSTOPERATIVE PELVIS. Status: Imported from PACS Transfer Plan - Disposition Transfer Plan: Patient to be transferred to a correction facility for ongoing physical therapy and correction. Follow-up with Dr. Adkins and [facility] for surgery in 2 weeks for staple removal. Qualifiers - * PATIENT BEING DISCHARGED WITH ANY OF THE FOLLOWING DIAGNOSIS: No VTE patient discharged on overlapping Therapy?: Yes
[2018-06-18] MEDS: PRENATAL VITAMIN W DHA CAPSULE PO SCH (10:05)
[2018-06-18] MEDS: CALCIUM CARBONATE 250 MG/VITAMIN D3 125 UNIT TABLET PO SCH ×3 (10:05→17:18)
[2018-06-18] MEDS: SENNOSIDES/DOCUSATE 8.6-50 MG 1 EACH TABLET PO SCH ×2 (10:05→17:15)
[2018-06-18] MEDS: ASPIRIN 81 MG TABLET, ENT COATED PO SCH (10:05)
[2018-06-18] MEDS: METOCLOPRAMIDE HCL 10 MG TABLET PO PRN (11:01)
[2018-06-18] MEDS: ONDANSETRON 4 MG TAB.RAPDIS PO PRN (12:26)
[2018-06-18] MEDS: HYDROXYCHLOROQUINE SULFATE 200 MG TABLET PO SCH (17:18)
[2018-06-18] MEDS: AMITRIPTYLINE HCL 25 MG TABLET PO SCH (21:26)
[2018-06-18] MEDS: FAMOTIDINE 20 MG TABLET PO SCH (21:26)
[2018-06-18] MEDS: MELATONIN 5 MG TABLET PO SCH (21:27)
[2018-06-19] MEDS: HYDROMORPHONE HCL 2 MG TABLET PO PRN ×3 (04:07→15:34)
[2018-06-19] MEDS: CYCLOBENZAPRINE HCL 10 MG TABLET PO PRN ×2 (05:37→15:34)
[2018-06-19] MEDS: LEVOTHYROXINE SODIUM 0.088 MG TABLET PO SCH (05:37)
[2018-06-19] MEDS: LANSOPRAZOLE 30 MG TAB.RAP.DR PO SCH (05:38)
[2018-06-19] MEDS: LACTOBACILLUS ACIDOPHILUS 250 MG TAB PO SCH ×2 (05:38→13:13)
[2018-06-19] MEDS: GABAPENTIN 400 MG CAPSULE PO SCH ×2 (05:38→13:16)
[2018-06-19 08:06] VITALS: BP 121/67
[2018-06-19] MEDS: ENOXAPARIN SODIUM INJ 40 MG/0.4 ML DISP.SYRIN SUBCUT SCH (09:40)
[2018-06-19] MEDS: PENICILLIN V POTASSIUM 500 MG TABLET PO SCH ×2 (09:45→13:13)
[2018-06-19] MEDS: PRENATAL VITAMIN W DHA CAPSULE PO SCH (09:45)
[2018-06-19] MEDS: PENTOXIFYLLINE 400 MG TABLET.SA PO SCH ×2 (09:46→13:13)
[2018-06-19] MEDS: SENNOSIDES/DOCUSATE 8.6-50 MG 1 EACH TABLET PO SCH (09:46)
[2018-06-19] MEDS: ASPIRIN 81 MG TABLET, ENT COATED PO SCH (09:46)
[2018-06-19] MEDS: CALCIUM CARBONATE 250 MG/VITAMIN D3 125 UNIT TABLET PO SCH ×2 (09:47→15:33)
[2018-06-19] MEDS: DIPHENHYDRAMINE HCL 25 MG CAPSULE PO PRN (11:24)
== END 2018-06-19 16:14 | DRG 470 ==
LOC: ER 08:31 → EH 11:14 → 4N 14:36 → OBSVTOIN 06-12 07:00
PROVIDERS: ADMIT Orthopaedic Surgery; ATTEND Orthopaedic Surgery
PROC: 3E0F73Z Introduction of Anti-inflammatory into Respiratory Tract, Via Natural or Artificial Opening (ICD-10-PCS; 2018-06-12)
PROC: 0SRB02A Replacement of Left Hip Joint with Metal on Polyethylene Synthetic Substitute, Uncemented, Open Approach (ICD-10-PCS; principal; 2018-06-13 11:15)
DX: S72.002A Fracture of unspecified part of neck of left femur, initial encounter for closed fracture (principal); W01.0XXA Fall on same level from slipping, tripping and stumbling without subsequent striking against object, initial encounter; K58.9 Irritable bowel syndrome, unspecified; M32.9 Systemic lupus erythematosus, unspecified; K21.9 Gastro-esophageal reflux disease without esophagitis; E03.9 Hypothyroidism, unspecified; M79.7 Fibromyalgia; K31.84 Gastroparesis; M35.00 Sjogren syndrome, unspecified; D89.1 Cryoglobulinemia; K21.0 Gastro-esophageal reflux disease with esophagitis; J45.909 Unspecified asthma, uncomplicated; G89.29 Other chronic pain; M54.2 Cervicalgia; M54.9 Dorsalgia, unspecified; Z79.899 Other long term (current) drug therapy; Y92.019 Unspecified place in single-family (private) house as the place of occurrence of the external cause; Z85.43 Personal history of malignant neoplasm of ovary; Z90.49 Acquired absence of other specified parts of digestive tract; Z90.710 Acquired absence of both cervix and uterus; Z88.6 Allergy status to analgesic agent; Z88.4 Allergy status to anesthetic agent; Z88.1 Allergy status to other antibiotic agents; Z91.041 Radiographic dye allergy status; Z88.8 Allergy status to other drugs, medicaments and biological substances; Z91.018 Allergy to other foods; Z91.048 Other nonmedicinal substance allergy status; Z79.891 Long term (current) use of opiate analgesic
CPT/HCPCS: 01214; 36415; 51702; 71046; 72170; 74176; 80048; 80053; 81001; 85025; 85027; 87086; 88305; 88311; 93005; 93010; 94799; 96374; 99285; C1776; C9290; G8978-GP; G8979-GP; G8987-GO; G8988-GO; J0131; J0690; J1170; J1200; J1741; J2250; J2704; J3010; J3370; J3490; J7050; J7060; J7120; S0119

== ENCOUNTER → 2018-11-14 | Outpatient (CLI) | payer MEDICARE ==
--- NOTE | 2018-11-14 08:43 | WOMENS IMAGING REPORT ---
EXAM DESCRIPTION: BONE DENSITY HIP/SPINE COMPLETED DATE/TIME: 11/14/2018 8:09 am REASON FOR STUDY: Z78.0 ASYMPTOMATIC MENOPAUSAL STATE Z12.31 ENCNTR SCREEN MAMMOGRAM FOR MALIGNANT NEOPLASM OF KRISTINA Z78.0 ASYMPTOMATIC MENOPAUSAL STATE COMPARISON: 09/21/2016 TECHNIQUE: Dual-Energy X-ray Absorptiometry (DEXA) of the AP Spine and Hip. LIMITATIONS: None. FINDINGS: LUMBAR SPINE: The bone mineral density (BMD) measured from L1-L4 in the AP projection correlates with a T-score of -1.1, which is osteopenia as defined by the World Health Organization. +5.9% change since prior stud y. HIP: The bone mineral density (BMD) measured in the right hip correlates with a T-score of -2.5 in the fem oral neck, which is osteoporosis as defined by the World Health Organization. IMPRESSION: 1. LUMBAR SPINE: OSTEOPENIA. 2. HIP: OSTEOPOROSIS. COMMENT: The World Health Organization defines low BMD as follows: T-score: Normal: Greater than -1.0 Osteopenia: Between -1.0 and -2.5 Osteoporosis: Less than -2.5 without fractures Established osteoporosis: Less than -2.5 with fractures In general, you may wish to consider: Diagnosis Treatment Follow-up DEXA Normal BMD Prevention 2-3 years Osteopenia Prevention/Therapy 1-2 years Osteoporosis Therapy Yearly TECHNICAL DOCUMENTATION: JOB ID: [id number] [employer]- All Rights Reserved Reading location - IP/workstation name: [email or web address]
--- NOTE | 2018-11-14 09:28 | WOMENS IMAGING REPORT ---
EXAM DESCRIPTION: BILAT SCREENING MAMMO W/CAD COMPLETED DATE/TIME: 11/14/2018 8:09 am REASON FOR STUDY: SCREEENING MAMMO Z12.31 ENCNTR SCREEN MAMMOGRAM FOR MALIGNANT NEOPLASM OF KRISTINA Z78 .0 ASYMPTOMATIC MENOPAUSAL STATE COMPARISON: 11/02/2017 and 09/21/2016 TECHNIQUE: Standard craniocaudal and mediolateral oblique views of each breast recorded using digita l acquisition. LIMITATIONS: None. FINDINGS: No masses, calcifications or architectural distortion. No areas of suspicion. Read with the assistance of CAD. .[facility] - R2 Cenova Version 1.3 .[facility] - R2 Cenova Version 1.3 .[facility] - R2 Cenova Version 2.4 .[facility] - R2 Cenova Version 2.4 .[facility] - R2 Senior Net Software Developer Version 9.2 IMPRESSION: NORMAL MAMMOGRAM. BIRADS 1. BREAST DENSITY: a. The breasts are almost entirely fatty. BIRAD: 1 NEGATIVE RECOMMENDATION: ROUTINE SCREENING COMMENT: The patient has been notified of the results by letter per MQSA requirements. Additional no tification policies are in place for contacting patient with suspicious or incomplete findings. Quality ID #[id number]: The [employer] recommends an annual screening mammogram for women aged 40 years or over. This facility utilizes a reminder system to ensure that all patients receive reminder letters, and/or direct phone calls for appointments. This includes reminders for routine scr eening mammograms, diagnostic mammograms, or other Breast Imaging Interventions when appropriate. Th is patient will be placed in the appropriate reminder system. The [employer] ([employer]CR) has developed recommendations for screening MRI of the breast s in certain patient populations, to be used in conjunction with mammography. Breast MRI surveillanc e may be appropriate for women with more than 20% lifetime risk of developing breast cancer as deter mined by genetic testing, significant family history of the disease, or history of mantle radiation f or Hodgkins Disease. ACR Practice Guidelines 2008. TECHNICAL DOCUMENTATION: FINDING NUMBER: (1) ASSESSMENT: (1) JOB ID: [id number] [employer]- All Rights Reserved Reading location - IP/workstation name: [email or web address]
== END ==
LOC: WI 07:41
PROVIDERS: ATTEND Internal Medicine
DX: Z12.31 Encounter for screening mammogram for malignant neoplasm of breast (principal); Z78.0 Asymptomatic menopausal state
CPT/HCPCS: 77067; 77080

== ENCOUNTER → 2019-03-13 | Outpatient (CLI) | payer MEDICARE ==
--- NOTE | 2019-03-13 08:48 | RADIOLOGY REPORT (SQ) ---
EXAM DESCRIPTION: BARIUM SWALLOW ESOPHAGUS COMPLETED DATE/TIME: 03/13/2019 8:21 am REASON FOR STUDY: DYSPHAGIA (R13.10) R13.10 DYSPHAGIA, UNSPECIFIED COMPARISON: None. TECHNIQUE: Under fluoroscopic guidance, patient ingested effervescent granules followed by thick and thin barium. Fluoroscopic spot images and routine radiographic images acquired and stored on PACS. 12 MM BARIUM TABLET GIVEN: Yes. 12 mm barium tablet lucency in the small hiatal hernia in for about 60 seconds before dropping throug h into the stomach. This reproduced the patient's symptoms. LIMITATIONS: None. FLUOROSCOPY TIME: FLUORO TIME: 1.8 minutes 8 series of digital fluoroscopic images saved to PACS. FINDINGS: NEUROMUSCULAR COORDINATION OF SWALLOW: Normal. No aspiration. ESOPHAGEAL MOTILITY: Tertiary contractions. No esophageal spasm. ESOPHAGEAL MUCOSA: Normal mucosa without masses or ulceration. GASTRO-ESOPHAGEAL JUNCTION: Small hiatal hernia. This hit with the 12 mm barium tablet paused in the hiatal hernia for about 60 seconds, reproducing the patient's symptoms. Pill then dropped into the stomach. Mild gastroesophageal reflux on today's study NON-GI TRACT STRUCTURES: No significant finding. OTHER: No other significant finding. IMPRESSION: Small hiatal hernia without gastroesophageal reflux. Tertiary contractions of the esophagus Mild gastroesophageal reflux on today's study COMMENT: Quality ID 145: Final reports for procedures using fluoroscopy that document radiation exp osure indices, or exposure time and number of fluorographic images (if radiation exposure indices are not available) TECHNICAL DOCUMENTATION: JOB ID: [id number] [employer]- All Rights Reserved Reading location - IP/workstation name: [email or web address]
== END ==
LOC: RAD 07:47
PROVIDERS: ATTEND Internal Medicine Gastroenterology
DX: R13.10 Dysphagia, unspecified (principal)
CPT/HCPCS: 74220

== ENCOUNTER → 2019-12-13 | Outpatient (CLI) | payer MEDICARE ==
[2019-12-13 08:25] LABS: HEMATOCRIT 45.4 % (36.0-47.0); HEMOGLOBIN 15.3 g/dL (12.0-15.5); MEAN CORPUSCULAR HEMOGLOBIN 30.4 pg (27.0-33.4); MEAN CORPUSCULAR HGB CONC 33.8 g/dL (32.0-36.0); MEAN CORPUSCULAR VOLUME 90 fl (80-97); PLATELET COUNT 237 10^3/uL (150-450); RED BLOOD COUNT 5.04 10^6/uL (3.72-5.28); RED CELL DISTRIBUTION WIDTH 13.6 % (11.5-14.0); WHITE BLOOD COUNT 6.6 10^3/uL (4.0-10.5)
[2019-12-13 08:48] LABS: FREE T3 2.38 pg/mL (2.77-5.27)
[2019-12-13 09:05] LABS: THYROID STIMULATING HORMONE < 0.01 uIU/mL (0.47-4.68)
== END ==
LOC: OD 07:05
PROVIDERS: ATTEND Internal Medicine Rheumatology
DX: M35.9 Systemic involvement of connective tissue, unspecified (principal)
CPT/HCPCS: 36415; 84439; 84443; 84481; 85027

== ENCOUNTER 2020-03-27 10:13 | Inpatient (IN) | payer MEDICARE ==
[2020-03-27] MEDS ORDERED: IPRATROPIUM/ALBUTEROL 0.5-2.5 MG/3 ML AMPUL NEB ONE (10:17)
[2020-03-27] MEDS ORDERED: METHYLPREDNISOLONE INJ 125 MG/2 ML SDV IV ONE (10:18)
[2020-03-27] MEDS ORDERED: ONDANSETRON HCL INJ/PF 4 MG/2 ML SDV IV ONE ×2 (10:18→10:44)
[2020-03-27] MEDS: MAGNESIUM SULFATE/D5W 1 GM/100 ML RTUPB IV SCH ×2 (10:23→10:50)
[2020-03-27] MEDS ORDERED: NORMAL SALINE 1000 ML 1,000 ML IV ONE (10:24)
[2020-03-27 10:40] LABS: ABSOLUTE EOSINOPHILS # (AUTO) 0.1 10^3/uL (0.0-0.6); ABSOLUTE LYMPHOCYTES (AUTO) 3.3 10^3/uL (0.5-4.7); ABSOLUTE MONOCYTES (AUTO) 0.7 10^3/uL (0.1-1.4); ABSOLUTE NEUT (AUTO) 5.7 10^3/uL (1.7-8.2); BASOPHILS % (AUTO) 0.4 % (0-2); HEMATOCRIT 49.6 % (36.0-47.0); HEMOGLOBIN 17.2 g/dL (12.0-15.5); LYMPHOCYTES % (AUTO) 33.4 % (13-45); MEAN CORPUSCULAR HGB CONC 34.8 g/dL (32.0-36.0); MEAN CORPUSCULAR VOLUME 92 fl (80-97); PLATELET COUNT 266 10^3/uL (150-450); RED BLOOD COUNT 5.38 10^6/uL (3.72-5.28); RED CELL DISTRIBUTION WIDTH 14.2 % (11.5-14.0); SEGMENTED NEUTROPHILS % (AUTO) 58.2 % (42-78); TOTAL CELLS COUNTED % (AUTO) 100 %; WHITE BLOOD COUNT 9.7 10^3/uL (4.0-10.5)
[2020-03-27 10:50] LABS: INTERNATIONAL RATION (INR) 1.06; PROTHROMBIN TIME 13.8 SEC (11.4-15.4)
[2020-03-27 10:51] LABS: PARTIAL THROMBOPLASTIN TIME 25.3 SEC (23.5-35.8)
[2020-03-27 10:59] LABS: ALBUMIN 4.9 g/dL (3.5-5.0); ALKALINE PHOSPHATASE 59 U/L (38-126); ANION GAP 9 (5-19); ASPARTATE AMINO TRANSFERASE 39 U/L (14-36); BILIRUBIN,TOTAL 0.5 mg/dL (0.2-1.3); BLOOD UREA NITROGEN 19 mg/dL (7-20); CALCIUM 9.6 mg/dL (8.4-10.2); CARBON DIOXIDE 29 mmol/L (22-30); CHLORIDE 101 mmol/L (98-107); GLUCOSE 116 mg/dL (75-110); POTASSIUM 3.9 mmol/L (3.6-5.0); TOTAL PROTEIN 7.6 g/dL (6.3-8.2)
[2020-03-27 11:07] LABS: D-DIMER < 0.27 ug/mL (0.00-0.50)
[2020-03-27 11:09] LABS: NT PRO BNP 20 pg/mL (<125)
[2020-03-27 11:15] LABS: TROPONIN I < 0.012 ng/mL
[2020-03-27 11:52] LABS: APPEARANCE,URINE CLEAR; BILIRUBIN,URINE NEGATIVE (NEGATIVE); COLOR,URINE YELLOW; GLUCOSE, URINE NEGATIVE (NEGATIVE); KETONES,URINE NEGATIVE (NEGATIVE); LEUKOCYTE ESTERASE,URINE NEGATIVE (NEGATIVE); NITRITE,URINE NEGATIVE (NEGATIVE); PROTEIN,URINE NEGATIVE (NEGATIVE); URINE SPECIFIC GRAVITY 1.008; UROBILINOGEN,URINE NEGATIVE mg/dL (<2.0)
--- NOTE | 2020-03-27 12:12 | EKG REPORT ---
SEVERITY:- BORDERLINE ECG - SINUS TACHYCARDIA ATRIAL PREMATURE COMPLEX BORDERLINE T ABNORMALITIES, INFERIOR LEADS : Confirmed by: Alvaro Lewis MD 27-Mar-2020 12:12:17
--- NOTE | 2020-03-27 12:21 | RADIOLOGY REPORT (SQ) ---
EXAM DESCRIPTION: CHEST SINGLE VIEW IMAGES COMPLETED DATE/TIME: 03/27/2020 11:38 am REASON FOR STUDY: wheezing COMPARISON: 06/11/2018 EXAM PARAMETERS: NUMBER OF VIEWS: One view. TECHNIQUE: Single frontal radiographic view of the chest acquired. RADIATION DOSE: NA LIMITATIONS: None. FINDINGS: LUNGS AND PLEURA: No opacities, masses or pneumothorax. No pleural effusion. MEDIASTINUM AND HILAR STRUCTURES: No masses. Contour normal. HEART AND VASCULAR STRUCTURES: Heart normal in size. Vascular calcification . BONES: No acute findings. HARDWARE: None in the chest. OTHER: No other significant finding. IMPRESSION: NO ACUTE RADIOGRAPHIC FINDING IN THE CHEST. TECHNICAL DOCUMENTATION: JOB ID: [id number] 2010 [employer]- All Rights Reserved Reading location - IP/workstation name: [email or web address]
--- NOTE | 2020-03-27 13:55 | ER Document Report ---
Entered by JULIA DYER SCRIBE 03/27/20 1048 Acting as scribe for:PEREZ SETH MD ED Respiratory Problem - General Chief Complaint: Shortness Of Breath Stated Complaint: DIFFICULTY BREATHING Time Seen by Provider: 03/27/20 10:21 Primary Care Provider: SABIHA AGRAWAL MD [Primary Care Provider] - Follow up as needed Information source: Patient Notes: This 59 year old female patient presents to the emergency department today with difficulty breathing. Patient states she has been more active lately with moving around and being outside. Patient states she has become more generally weak from the activity and she has had some difficulty breathing. Patient states this has caused her to start coughing and there is pain in her right ribcage. Patient states she has a history of asthma. Patient states she visited [facility] this morning and was sent to the emergency department after. Patient states she had a breathing treatment done, as well as a chest x-ray and test for influenza. Patient states she thinks she has pneumonia. TRAVEL OUTSIDE OF THE [place] IN LAST 30 DAYS: No - Related Data Allergies/Adverse Reactions: caffeine [Caffeine] Allergy (Severe, Verified 03/27/20 10:28) sets off autoimmune response ethyl chloride [Ethyl Chloride] Allergy (Severe, Verified 03/27/20 10:28) Anaphylaxis iodine [Iodine] Allergy (Severe, Verified 03/27/20 10:28) Anaphylaxis lidocaine HCl [From Xylocaine] Allergy (Severe, Verified 03/27/20 10:28) Anaphylaxis morphine [Morphine] Allergy (Severe, Verified 03/27/20 10:28) swelling, AMS pentazocine lactate [From Talwin] Allergy (Severe, Verified 03/27/20 10:28) Hallucinations procaine HCl [From Novocain] Allergy (Severe, Verified 03/27/20 10:28) Anaphylaxis carisoprodol [From Soma] Allergy (Intermediate, Verified 03/27/20 10:28) muscle problems Iodinated Contrast Media [IV Dye, Iodine Containing] Allergy (Intermediate, Verified 03/27/20 10:28) Anaphylaxis pentazocine [Pentazocine] Allergy (Intermediate, Verified 03/27/20 10:28) Hallucinations adhesive tape [Adhesive Tape] Allergy (Mild, Verified 03/27/20 10:28) sores, skin peeled off paraben [Paraben] Allergy (Mild, Verified 03/27/20 10:28) rash ampicillin [Ampicillin] Allergy (Unknown, Verified 03/27/20 10:28) convulsions atropine [Atropine] Allergy (Unknown, Verified 03/27/20 10:28) unknown chicken derived [Chicken Derived] Allergy (Unknown, Verified 03/27/20 10:28) unknown pineapple [Pineapple] Allergy (Unknown, Verified 03/27/20 10:28) unknown wheat [Wheat] Allergy (Unknown, Verified 03/27/20 10:28) unknown acetic acid [Acetic Acid] Adverse Reaction (Mild, Verified 03/27/20 10:28) flu like symptoms hops Allergy (Severe, Uncoded 03/27/20 10:28) severe asthma perfume Ht 52 Allergy (Severe, Uncoded 03/27/20 10:28) Anaphylaxis acrylic Allergy (Intermediate, Uncoded 03/27/20 10:28) swelling fluoride Allergy (Unknown, Uncoded 03/27/20 10:28) unknown local anesthetics Allergy (Uncoded 03/27/20 10:28) Past Medical History - General Information source: Patient - Social History Smoking Status: Never Smoker Cigarette use (# per day): No Chew tobacco use (# tins/day): No Frequency of alcohol use: None Drug Abuse: None Lives with: Spouse/Significant other Family History: Reviewed & Not Pertinent Patient has homicidal ideation: No Pulmonary Medical History: Reports: Hx Asthma Endocrine Medical History: Reports: Hx Hypothyroidism Malignancy Medical History: Reports: Hx Ovarian Cancer GI Medical History: Reports: Hx Gastroesophageal Reflux Disease Musculoskeletal Medical History: Reports Hx Fibromyalgia Psychiatric Medical History: Reports: Hx Anxiety, Hx Depression Past Surgical History: Reports: Hx Appendectomy, Hx Bowel Surgery, Hx Cholecystectomy, Hx Hysterectomy, Hx Pancreatic Surgery - Multiple ERCP procedure with stent placement and removal, last surgery was, Other - Surgery to remove adhesions - Immunizations Hx Diphtheria, Pertussis, Tetanus Vaccination: No Review of Systems - Review of Systems Constitutional: See HPI, Weakness EENT: No symptoms reported Cardiovascular: No symptoms reported Respiratory: See HPI, Cough, Short of breath Gastrointestinal: No symptoms reported Genitourinary: No symptoms reported Female Genitourinary: No symptoms reported Musculoskeletal: No symptoms reported Skin: No symptoms reported Hematologic/Lymphatic: No symptoms reported Neurological/Psychological: No symptoms reported -: Yes All other systems reviewed and negative Physical Exam - Vital signs Vitals: Resp BP Pulse Ox 20 168/67 H 99 03/27/20 10:14 03/27/20 10:14 03/27/20 10:14 - General General appearance: Alert In distress: Moderate - HEENT Head: Normocephalic, Atraumatic Eyes: Normal Pupils: PERRL Pharynx: Other - Airway patent.. No: Tonsillar hypertrophy, Uvular edema - Respiratory Chest status: Nontender Breath sounds: Nonproductive cough, Stridor, Wheezing - Inspiratory., Other - Decreased breath sounds. Chest palpation: Normal - Cardiovascular Rhythm: Tachycardia Heart sounds: S1 appreciated, S2 appreciated Murmur: No - Abdominal Inspection: Normal Distension: No distension Bowel sounds: Normal Tenderness: Nontender - Extremities General upper extremity: Normal inspection. No: Edema General lower extremity: Normal inspection. No: Edema - Neurological Neuro grossly intact: Yes Cognition: Normal Orientation: AAOx4 - Psychological Associated symptoms: Normal affect, Normal mood - Skin Skin Temperature: Warm Skin Moisture: Dry Skin Color: Normal Course - Re-evaluation Re-evalutation: 03/27/20 13:38 Patient is resting with a sat of 98% off O2 at this time. - Vital Signs Vital signs: Temp Pulse Resp BP Pulse Ox 98.4 F 19 134/59 H 98 03/27/20 10:25 03/27/20 12:01 03/27/20 12:00 03/27/20 12:01 03/27/20 13:39 Vital signs within normal limits afebrile - Laboratory Result Diagrams: 03/27/20 10:17 03/27/20 10:17 Laboratory results interpreted by me: 03/27/20 03/27/20 03/27/20 10:17 10:17 10:17 RBC 5.38 H Hgb 17.2 H Hct 49.6 H RDW 14.2 H Glucose 116 H AST 39 H ALT 43 H TSH < 0.01 L Urine Blood 03/27/20 10:59 RBC Hgb Hct RDW Glucose AST ALT TSH Urine Blood SMALL H Laboratory series within normal limits except hemoglobin is 17.2 h emoconcentrated. Glucose is 116. Patient is currently being treated with just finished the antibiotics for UTI. COVID 19 SARS-CoV-2 is negative. Influenza testing was done at the [facility] this a.m. and reported to us as negative strep throat is negative. - Diagnostic Test Radiology reviewed: Image reviewed, Reports reviewed Radiology results interpreted by me: 03/27/20 13:41 Chest x-ray shows no acute infiltrate mild cardiomegaly noted. Otherwise negative - EKG Interpretation by Me Additional EKG results interpreted by me: 03/27/20 13:41 Twelve-lead EKG shows sinus tachycardia rate of 102 atrial premature complexes. Borderline T abnormalities in the inferior leads. Discharge - Discharge Clinical Impression: Acute asthma exacerbation Condition: Good Disposition: ADMITTED INPATIENT Admitting Provider: Dora (Hospitalist) Unit Admitted: Medical Floor Referrals: SABIHA AGRAWAL MD [Primary Care Provider] - Follow up as needed I personally performed the services described in the documentation, reviewed and edited the documentation which was dictated to the scribe in my presence, and it accurately records my words and actions.
[2020-03-27] MEDS ORDERED: ACETAMINOPHEN 325 MG TABLET PO PRN (14:20)
[2020-03-27] MEDS ORDERED: ONDANSETRON HCL INJ/PF 4 MG/2 ML SDV IV PRN (14:26)
[2020-03-27] MEDS ORDERED: RACEPINEPHRINE HCL 2.25% NEB 0.5 ML AMPUL NEB ONE (14:27)
--- NOTE | 2020-03-27 14:48 | PDOC H&P ---
History of Present Illness Admission Date/PCP: 03/27/20 13:59 SABIHA AGRAWAL MD Patient complains of: Shortness of breath, wheezing, rib pain History of Present Illness: CAROLINA MONTEZ is a 59 year old female with multiple medical comorbidities including asthma, lupus, rainouts, cryoglobulinemia, vasculitis, hypothyroidism, IBS, vocal cord disease, who presents to the hospital with complaints of pleuritic chest pain involving her right lower ribs as well as bilateral parasternal region as well as shortness of breath. Symptoms started 2 weeks ago and have progressed. This morning she feels very dyspneic had a hard time breathing. She went to see a provider who referred her to the hospital for better control of her wheezing. Patient also endorses burning in throat. Chest pain is aggravated by taking a deep breath in and patient has been having cough which has persisted for the past 2 weeks. Denies any fever or chills and minimal sputum production. Has nebulizers at home which she has been taking. Past Medical History Cardiac Medical History: Denies: Coronary Artery Disease, Myocardial Infarction, Hypertension Pulmonary Medical History: Reports: Asthma Denies: Bronchitis, Chronic Obstructive Pulmonary Disease (COPD), Pneumonia Neurological Medical History: Denies: Seizures Endocrine Medical History: Reports: Hypothyroidism Malignancy Medical History: Reports: Ovarian Cancer GI Medical History: Reports: Gastroesophageal Reflux Disease Musculoskeltal Medical History: Reports: Arthritis, Fibromyalgia Hematology: Denies: Anemia Past Surgical History Past Surgical History: Reports: Appendectomy, Cholecystectomy, Hysterectomy, Thyroidectomy, Other - Surgery to remove adhesions Social History Information Source: Patient Lives with: Spouse/Significant other Smoking Status: Never Smoker Electronic Cigarette use?: No Frequency of Alcohol Use: None Hx Recreational Drug Use: No Hx Prescription Drug Abuse: No - Advance Directive Resuscitation Status: Full Code Family History Family History: Reviewed & Not Pertinent Parental Family History Reviewed: Yes Children Family History Reviewed: NA Sibling(s) Family History Reviewed.: NA Medication/Allergy Home Medications: Hydroxychloroquine Sulfate [Plaquenil 200 mg Tablet] 200 mg PO DAILY 01/09/15 Pentoxifylline [Pentoxil] 400 mg PO AC 01/09/15 Calcium/D3/Argnin/Inos/Silicon [Bone Density Calcium + D Tablet] 2 each PO TID 06/11/18 Gabapentin [Neurontin 400 mg Capsule] 1,200 mg PO QPM 06/11/18 L.acid/L.casei/B.bif/B.sandy/Fos [Probiotic Blend Capsule] 1 each PO Q6 06/11/18 Levothyroxine Sodium [Synthroid 0.088 mg Tablet] 88 mcg PO Q6AM 06/11/18 Magnesium Citrate 100 mg PO Q6 06/11/18 Melatonin [Melatonin 5 mg Tablet] 5 mg PO QHS 06/11/18 Metoclopramide HCl [Reglan] 5 mg PO TIDP PRN 06/11/18 Ondansetron [Ondansetron Odt] 8 mg SL BIDP PRN 06/11/18 Albuterol Sulfate [Albuterol Sulfate 2.5mg/3 mL] 2.5 mg IH Q4HP PRN 06/12/18 Albuterol Sulfate [Ventolin HFA MDI 18 GM] 2 puff IH Q4HP PRN 06/12/18 Hydromorphone HCl [Dilaudid 2 mg Tablet] 2 mg PO Q6HP PRN 06/12/18 Acetaminophen [Tylenol] 325 mg PO ASDIR PRN 03/27/20 Azathioprine 50 mg PO BID 03/27/20 Benzonatate 200 mg PO TIDP PRN 03/27/20 Biotin 5,000 mcg PO QID 03/27/20 Calcium Carb, Citrate/Vit D3 [Calcium + D3 ER Tablet] 1 each PO QPM 03/27/20 Cranberry 4200mg 4,200 mg PO DAILY 03/27/20 Diphenhydramine HCl [Benadryl] 50 mg PO QHS 03/27/20 Liothyronine Sodium [Cytomel] 5 mcg PO QAM 03/27/20 Mupirocin [Bactroban 2% Ointment 22 gm] 1 each TOP TID 03/27/20 Nifedipine [Nifedipine ER] 30 mg PO QAM 03/27/20 Nitrofurantoin Monohyd/M-Cryst [Macrobid 100 mg Capsule] 100 mg PO DAILYP PRN 03/27/20 Prednisone [Deltasone 5 mg Tablet] 5 mg PO QAM 03/27/20 Simethicone [Gas-X] 125 mg PO DAILYP PRN 03/27/20 Standard Process Spleen Pmg 1 each PO DAILY@12 03/27/20 Vit C/Ascorb Sod/Multivit-Min [Emergen-C 500 mg Chewable Tab] 500 mg pe PO DAILY 03/27/20 Allergies/Adverse Reactions: caffeine [Caffeine] Allergy (Severe, Verified 03/27/20 10:28) sets off autoimmune response ethyl chloride [Ethyl Chloride] Allergy (Severe, Verified 03/27/20 10:28) Anaphylaxis iodine [Iodine] Allergy (Severe, Verified 03/27/20 10:28) Anaphylaxis lidocaine HCl [From Xylocaine] Allergy (Severe, Verified 03/27/20 10:28) Anaphylaxis morphine [Morphine] Allergy (Severe, Verified 03/27/20 10:28) swelling, AMS pentazocine lactate [From Talwin] Allergy (Severe, Verified 03/27/20 10:28) Hallucinations procaine HCl [From Novocain] Allergy (Severe, Verified 03/27/20 10:28) Anaphylaxis carisoprodol [From Soma] Allergy (Intermediate, Verified 03/27/20 10:28) muscle problems Iodinated Contrast Media [IV Dye, Iodine Containing] Allergy (Intermediate, Verified 03/27/20 10:28) Anaphylaxis pentazocine [Pentazocine] Allergy (Intermediate, Verified 03/27/20 10:28) Hallucinations adhesive tape [Adhesive Tape] Allergy (Mild, Verified 03/27/20 10:28) sores, skin peeled off paraben [Paraben] Allergy (Mild, Verified 03/27/20 10:28) rash ampicillin [Ampicillin] Allergy (Unknown, Verified 03/27/20 10:28) convulsions atropine [Atropine] Allergy (Unknown, Verified 03/27/20 10:28) unknown chicken derived [Chicken Derived] Allergy (Unknown, Verified 03/27/20 10:28) unknown pineapple [Pineapple] Allergy (Unknown, Verified 03/27/20 10:28) unknown wheat [Wheat] Allergy (Unknown, Verified 03/27/20 10:28) unknown acetic acid [Acetic Acid] Adverse Reaction (Mild, Verified 03/27/20 10:28) flu like symptoms hops Allergy (Severe, Uncoded 03/27/20 10:28) severe asthma perfume Ht 52 Allergy (Severe, Uncoded 03/27/20 10:28) Anaphylaxis acrylic Allergy (Intermediate, Uncoded 03/27/20 10:28) swelling fluoride Allergy (Unknown, Uncoded 03/27/20 10:28) unknown local anesthetics Allergy (Uncoded 03/27/20 10:28) Review of Systems Constitutional: PRESENT: fatigue. ABSENT: fever(s) Eyes: ABSENT: visual disturbances Ears: PRESENT: hearing changes - Chronic hearing difficulties but no acute changes Nose, Mouth, and Throat: PRESENT: headache(s) Cardiovascular: PRESENT: as per HPI, chest pain. ABSENT: orthropnea Respiratory: PRESENT: cough, dyspnea Gastrointestinal: PRESENT: heartburn. ABSENT: abdominal pain Genitourinary: ABSENT: dysuria Integumentary: ABSENT: diaphoresis Neurological: ABSENT: dizziness Hematologic/Lymphatic: PRESENT: easy bruising Allergic/Immunologic: PRESENT: other - Denies rhinorrhea Physical Exam Vital Signs: Temp Pulse Resp BP Pulse Ox 98.4 F 19 134/59 H 98 03/27/20 10:25 03/27/20 12:01 03/27/20 12:00 03/27/20 12:01 Intake & Output 03/26/20 03/27/20 03/28/20 06:59 06:59 06:59 Intake Total 1200 Balance 1200 Weight 80.6 kg General appearance: PRESENT: no acute distress, cooperative Mouth exam: PRESENT: neck supple Neck exam: ABSENT: JVD Respiratory exam: PRESENT: chest wall tenderness, stridor - More prominent feature 10 degrees, symmetrical, tachypnea, unlabored, wheezes. ABSENT: accessory muscle use, retraction Cardiovascular exam: PRESENT: RRR, +S1, +S2. ABSENT: tachycardia GI/Abdominal exam: PRESENT: soft. ABSENT: rebound, rigid, tenderness Gentrourinary exam: ABSENT: indwelling catheter Extremities exam: ABSENT: pedal edema Neurological exam: PRESENT: alert, awake Psychiatric exam: ABSENT: agitated Focused psych exam: ABSENT: pressured speech Skin exam: ABSENT: jaundice Results Laboratory Results: 03/27/20 10:17 03/27/20 10:17 03/27/20 03/27/20 03/27/20 10:17 10:17 10:17 WBC 9.7 RBC 5.38 H Hgb 17.2 H Hct 49.6 H MCV 92 MCH 32.0 MCHC 34.8 RDW 14.2 H Plt Count 266 Seg Neutrophils % 58.2 Sodium 138.7 Potassium 3.9 Chloride 101 Carbon Dioxide 29 Anion Gap 9 BUN 19 Creatinine 0.68 Est GFR ( Amer) > 60 Glucose 116 H Lactic Acid Calcium 9.6 Total Bilirubin 0.5 AST 39 H Alkaline Phosphatase 59 Total Protein 7.6 Albumin 4.9 TSH < 0.01 L Urine Color Urine Appearance Urine pH Ur Specific [place] Urine Protein Urine Glucose (UA) Urine Ketones Urine Blood Urine Nitrite Ur Leukocyte Esterase Urine WBC (Auto) Urine RBC (Auto) 03/27/20 03/27/20 10:37 10:59 WBC RBC Hgb Hct MCV MCH MCHC RDW Plt Count Seg Neutrophils % Sodium Potassium Chloride Carbon Dioxide Anion Gap BUN Creatinine Est GFR ( Amer) Glucose Lactic Acid 2.0 Calcium Total Bilirubin AST Alkaline Phosphatase Total Protein Albumin TSH Urine Color YELLOW Urine Appearance CLEAR Urine pH 7.0 Ur Specific [place] 1.008 Urine Protein NEGATIVE Urine Glucose (UA) NEGATIVE Urine Ketones NEGATIVE Urine Blood SMALL H Urine Nitrite NEGATIVE Ur Leukocyte Esterase NEGATIVE Urine WBC (Auto) 0 Urine RBC (Auto) 1 03/27/20 10:17 Troponin I < 0.012 NT-Pro-B Natriuret Pep 20 Impressions: Chest X-Ray 03/27/20 10:23 IMPRESSION: NO ACUTE RADIOGRAPHIC FINDING IN THE CHEST. Assessment and Plan - Diagnosis (1) Dyspnea Is this a current diagnosis for this admission?: Yes Plan: Patient seems to have mild expiratory wheezing and mostly stridor. Dyspnea may be secondary to acute asthma exacerbation and/or vocal fold dysfunction. Will go ahead and treat for both. SARS-Cov2 rapid test is negative. CXR shows no acute changes. (2) Acute asthma exacerbation Is this a current diagnosis for this admission?: Yes Plan: We will treat with frequent duo nebs and IV steroids. Seems to have failed outpatient therapy. (3) Stridor Is this a current diagnosis for this admission?: Yes Plan: Patient expresses some stridor. This is likely secondary to vocal fold motion dysfunction. Patient voices that she has a history of "vocal fold malacia" and has benefited from racemic epinephrine in the past. I will give a dose of racemic epinephrine now and see if any improvement. Unfortunately we do not have ENT today to perform direct visualization through laryngoscopy. Speech therapy. Avoid airway irritants/perfumes. PPI to address GERD. (4) Costochondritis Is this a current diagnosis for this admission?: Yes Plan: NSAIDs as needed for pain control. Troponin negative. No evidence of new ischemia on EKG. (5) Hypothyroidism Qualifiers: Hypothyroidism type: unspecified Qualified Code(s): E03.9 - Hypothyroidism, unspecified Is this a current diagnosis for this admission?: Yes Plan: History of thyroidectomy. Surprisingly, TSH is extremely low and she denies any history of pituitary disease/surgery. Will check a free T4 and T3 level. Continue Synthroid. (6) Systemic lupus erythematosus Qualifiers: Systemic lupus erythematosus type: unspecified Is this a current diagnosis for this admission?: Yes Plan: Patient states she is on azathioprine, Hydroxychloroquine and prednisone daily outpatient. Continue hydroxychloroquine, azathioprine once med rec is confirmed. On Solu-Medrol currently. - Time Time Spent with patient: 35 or more minutes
[2020-03-27] MEDS: IPRATROPIUM/ALBUTEROL 0.5-2.5 MG/3 ML AMPUL NEB SCH ×2 (15:56→19:53)
[2020-03-27] MEDS ORDERED: IBUPROFEN 400 MG TABLET PO PRN (16:25)
[2020-03-27] MEDS: PANTOPRAZOLE SODIUM 40 MG TABLET.DR PO SCH (17:13)
[2020-03-27] MEDS ORDERED: METOCLOPRAMIDE HCL INJ/PF 10 MG/2 ML SDV IV PRN (17:41)
[2020-03-27] MEDS: GABAPENTIN 400 MG CAPSULE PO SCH (18:09)
[2020-03-27] MEDS: AZATHIOPRINE 50 MG TABLET PO SCH (20:04)
[2020-03-27] MEDS: MUPIROCIN 2% OINTMENT 22 GM TOP SCH (20:04)
[2020-03-27] MEDS: HYDROMORPHONE HCL 2 MG TABLET PO PRN (21:16)
[2020-03-27] MEDS: DIPHENHYDRAMINE HCL 25 MG CAPSULE PO PRN (21:16)
[2020-03-27] MEDS: MELATONIN 5 MG TABLET PO SCH (21:16)
[2020-03-28] MEDS: IPRATROPIUM/ALBUTEROL 0.5-2.5 MG/3 ML AMPUL NEB SCH ×6 (00:52→20:17)
[2020-03-28] MEDS ORDERED: LEVOTHYROXINE SODIUM 0.088 MG TABLET ONE (05:46)
[2020-03-28] MEDS: LEVOTHYROXINE SODIUM 0.088 MG TABLET PO SCH (06:12)
[2020-03-28] MEDS: PANTOPRAZOLE SODIUM 40 MG TABLET.DR PO SCH ×2 (06:15→17:30)
[2020-03-28] MEDS: SIMETHICONE 80 MG TAB.CHEW PO PRN ×2 (06:26→21:45)
[2020-03-28 06:52] LABS: ALBUMIN 3.9 g/dL (3.5-5.0); ALKALINE PHOSPHATASE 42 U/L (38-126); ANION GAP 6 (5-19); ASPARTATE AMINO TRANSFERASE 25 U/L (14-36); BILIRUBIN,TOTAL 0.4 mg/dL (0.2-1.3); BLOOD UREA NITROGEN 13 mg/dL (7-20); CARBON DIOXIDE 26 mmol/L (22-30); CHLORIDE 107 mmol/L (98-107); GLUCOSE 97 mg/dL (75-110); POTASSIUM 3.5 mmol/L (3.6-5.0); TOTAL PROTEIN 6.1 g/dL (6.3-8.2)
[2020-03-28 06:59] LABS: FREE T3 2.4 pg/mL (2.77-5.27); FREE T4 (FREE THYROXINE) 1.05 ng/dL (0.78-2.19)
[2020-03-28] MEDS ORDERED: (PENDING PHARMACY ID) (Liothyronine Sodium [Cytomel] 5 MCG) PO SCH (08:00)
[2020-03-28] MEDS: LIOTHYRONINE SODIUM 5 MCG TABLET PO SCH (09:00)
[2020-03-28] MEDS: NIFEDIPINE 30 MG TAB.ER.24 PO SCH (09:00)
[2020-03-28] MEDS: PENTOXIFYLLINE 400 MG TABLET.SA PO SCH ×3 (09:00→17:30)
[2020-03-28] MEDS ORDERED: POTASSIUM CHLORIDE 10 MEQ TABLET.ER PO ONE (09:30)
[2020-03-28] MEDS: AZATHIOPRINE 50 MG TABLET PO SCH ×2 (09:54→17:29)
[2020-03-28] MEDS: MUPIROCIN 2% OINTMENT 22 GM TOP SCH ×3 (09:56→17:29)
[2020-03-28] MEDS: ENOXAPARIN SODIUM INJ 40 MG/0.4 ML DISP.SYRIN SUBCUT SCH (09:58)
[2020-03-28] MEDS ORDERED: CRANBERRY 4200 MG PO SCH (10:00)
[2020-03-28] MEDS ORDERED: METHYLPREDNISOLONE INJ 40 MG/1 ML SDV IV SCH ×2 (10:00→18:00)
[2020-03-28] MEDS: HYDROXYCHLOROQUINE SULFATE 200 MG TABLET PO SCH (11:13)
--- NOTE | 2020-03-28 12:21 | PDOC PROGRESS REPORT ---
Subjective Progress Note for:: 03/28/20 Subjective:: Patient states her breathing is better. However she states that she feels very weak to walk. Patient states that this is usually how her flareups go from my autoimmune diseases. Acknowledges that the Imuran was started in November of this year. Her breathing difficulties ultimately started October last year but have become progressive more recently. Reason For Visit: ASTHMA EXACERBATION,POSSIBLE VOCAL CORD Physical Exam Vital Signs: Temp Pulse Resp BP Pulse Ox 98.0 F 94 17 141/57 H 100 03/28/20 08:55 03/28/20 08:55 03/28/20 08:55 03/28/20 08:55 03/28/20 08:55 Intake & Output 03/27/20 03/28/20 03/29/20 06:59 06:59 06:59 Intake Total 1970 Output Total 502 Balance 1468 Weight 69.6 kg General appearance: PRESENT: no acute distress, cooperative Respiratory exam: PRESENT: stridor - Absent when laying down supine but present when she sits forward, symmetrical, unlabored, wheezes - Minimal expiratory wheeze. ABSENT: tachypnea Cardiovascular exam: PRESENT: RRR, +S1, +S2. ABSENT: tachycardia GI/Abdominal exam: PRESENT: soft. ABSENT: distended, firm, guarding, rebound, rigid Neurological exam: PRESENT: alert, awake, oriented to person, oriented to place, oriented to time, oriented to situation Results Laboratory Results: 03/27/20 10:17 03/28/20 05:46 03/28/20 03/28/20 05:46 05:46 Sodium 138.9 Potassium 3.5 L Chloride 107 Carbon Dioxide 26 Anion Gap 6 BUN 13 Creatinine 0.59 Est GFR ( Amer) > 60 Glucose 97 Calcium 9.0 Total Bilirubin 0.4 AST 25 Alkaline Phosphatase 42 Total Protein 6.1 L Albumin 3.9 Free T4 1.05 Free T3 pg/mL 2.40 L 03/27/20 10:17 Troponin I < 0.012 NT-Pro-B Natriuret Pep 20 Impressions: Chest X-Ray 03/27/20 10:23 IMPRESSION: NO ACUTE RADIOGRAPHIC FINDING IN THE CHEST. Assessment and Plan - Diagnosis (1) Dyspnea Is this a current diagnosis for this admission?: Yes Plan: Patient seems to have mild expiratory wheezing and mostly stridor. Dyspnea may be secondary to acute asthma exacerbation and/or vocal fold dysfunction. Treating for both. SARS-Cov2 rapid test is negative. CXR shows no acute changes. (2) Laryngotracheomalacia Is this a current diagnosis for this admission?: Yes Plan: Patient expresses Stridor worse when patient sits up. She endorses history of "vocal fold malacia". Suspect this is secondary to patient's history of polychondritis and is probably contributing a great deal to patient's respiratory symptoms. Unfortunately we do not have ENT congressional representative currently to perform direct visualization w/ laryngoscopy. Responded well to nebulized racemic epinephrine. Will give another dose today. Continue steroids. Speech therapy. Avoid airway irritants/perfumes. PPI to address GERD/laryngopharyngeal reflux. (3) Acute asthma exacerbation Is this a current diagnosis for this admission?: Yes Plan: duo nebs and IV steroids. Seems to have failed outpatient therapy. (4) Relapsing polychondritis Is this a current diagnosis for this admission?: Yes Plan: Patient states she was diagnosed with polychondritis by her unit manager Dr. Henrik Perez. Seems to fit patient's constellation of symptoms including right-sided hearing difficulties likely auricular involvement, costochondritis, laryngeal tracheal disease. Potentially having an acute flare. She is currently on azathioprine. I will continue IV Solu-Medrol 40 mg twice daily today and transition to high-dose prednisone tomorrow. She may need high-dose prednisone for about 3 to 4 weeks before weaning. Check inflammatory markers. (5) Hypothyroidism Qualifiers: Hypothyroidism type: unspecified Qualified Code(s): E03.9 - Hypothyroidism, unspecified Is this a current diagnosis for this admission?: Yes Plan: History of thyroidectomy. Surprisingly, TSH is extremely low and she denies any history of pituitary disease/surgery. T3 is also but T4 is normal. Continue levothyroxine and liothyronine. Will have patient repeat TFTs in 4 weeks. (6) Systemic lupus erythematosus Qualifiers: Systemic lupus erythematosus type: unspecified Is this a current diagnosis for this admission?: Yes Plan: Patient is on azathioprine, Hydroxychloroquine & prednisone outpatient. C/w hydroxychloroquine and azathioprine. On Solu-Medrol currently. - Time Time Spent with patient: 15-24 minutes
[2020-03-28] MEDS: HYDROMORPHONE HCL 2 MG TABLET PO PRN ×2 (13:22→21:46)
[2020-03-28] MEDS ORDERED: RACEPINEPHRINE HCL 2.25% NEB 0.5 ML AMPUL NEB ONE (14:00)
[2020-03-28] MEDS: GABAPENTIN 400 MG CAPSULE PO SCH (17:29)
[2020-03-28] MEDS: ONDANSETRON HCL INJ/PF 4 MG/2 ML SDV IV PRN ×2 (17:46→23:27)
[2020-03-28] MEDS: DIPHENHYDRAMINE HCL 25 MG CAPSULE PO PRN (17:58)
[2020-03-28] MEDS: METHYLPREDNISOLONE INJ 40 MG/1 ML SDV IV SCH (21:45)
[2020-03-28] MEDS: MELATONIN 5 MG TABLET PO SCH (21:46)
[2020-03-29] MEDS: IPRATROPIUM/ALBUTEROL 0.5-2.5 MG/3 ML AMPUL NEB SCH ×4 (01:29→12:17)
[2020-03-29] MEDS: LEVOTHYROXINE SODIUM 0.088 MG TABLET PO SCH (05:39)
[2020-03-29] MEDS: PANTOPRAZOLE SODIUM 40 MG TABLET.DR PO SCH (05:39)
[2020-03-29 06:45] LABS: ANION GAP 9 (5-19); BLOOD UREA NITROGEN 19 mg/dL (7-20); CALCIUM 8.9 mg/dL (8.4-10.2); CARBON DIOXIDE 23 mmol/L (22-30); CHLORIDE 106 mmol/L (98-107); GLUCOSE 140 mg/dL (75-110); POTASSIUM 4.3 mmol/L (3.6-5.0)
[2020-03-29 06:51] LABS: C-REACTIVE PROTEIN < 5.0 mg/L (<10.0)
[2020-03-29] MEDS: NIFEDIPINE 30 MG TAB.ER.24 PO SCH (08:00)
[2020-03-29] MEDS: PENTOXIFYLLINE 400 MG TABLET.SA PO SCH ×2 (08:00→10:07)
[2020-03-29] MEDS: LIOTHYRONINE SODIUM 5 MCG TABLET PO SCH (08:00)
[2020-03-29] MEDS: MUPIROCIN 2% OINTMENT 22 GM TOP SCH ×2 (10:04→14:21)
[2020-03-29] MEDS: METHYLPREDNISOLONE INJ 40 MG/1 ML SDV IV SCH (10:05)
[2020-03-29] MEDS: ENOXAPARIN SODIUM INJ 40 MG/0.4 ML DISP.SYRIN SUBCUT SCH (10:05)
[2020-03-29] MEDS: HYDROMORPHONE HCL 2 MG TABLET PO PRN (10:05)
[2020-03-29] MEDS: AZATHIOPRINE 50 MG TABLET PO SCH (10:05)
[2020-03-29] MEDS: HYDROXYCHLOROQUINE SULFATE 200 MG TABLET PO SCH (10:05)
[2020-03-29] MEDS: ONDANSETRON HCL INJ/PF 4 MG/2 ML SDV IV PRN (10:06)
--- NOTE | 2020-03-29 12:07 | PDOC DISCHARGE SUMMARY ---
Impression - Admit/DC Date/PCP Admission Date/Primary Care Provider: 03/27/20 13:59 SABIHA AGRAWAL MD Discharge Date: 03/29/20 - Discharge Diagnosis (1) Dyspnea Is this a current diagnosis for this admission?: Yes (2) Laryngotracheomalacia Is this a current diagnosis for this admission?: Yes (3) Acute asthma exacerbation Is this a current diagnosis for this admission?: Yes (4) Hypothyroidism Is this a current diagnosis for this admission?: Yes (5) Systemic lupus erythematosus Is this a current diagnosis for this admission?: Yes (6) Stridor Is this a current diagnosis for this admission?: Yes - Additional Information Resuscitation Status: Full Code Discharge Diet: As Tolerated Referrals: EIRC ESCOBAR PA-C [COMMUNITY BASED STAFF] - (LEFT MESSAGE FOR VALERIE TO MAKE 4 WEEK FOLLOW APPT. ) SABIHA AGRAWAL MD [Primary Care Provider] - (OFFICE TOLD PATIENT TO FOLLOW UP WITH HER PCP IN 4 WEEKS.) MOHINI HOLM MD [NO LOCAL MD] - Prescriptions: Prednisone [Deltasone 5 mg Tablet] See Protocol PO Q12 #162 Albuterol Sulfate [Ventolin 0.083% Neb 2.5 mg/3 mL Ampul] 2.5 mg NEB Q6HP PRN #20 vial.neb PRN Reason: Home Medications: Hydroxychloroquine Sulfate [Plaquenil 200 mg Tablet] 200 mg PO DAILY 01/09/15 Pentoxifylline [Pentoxil] 400 mg PO AC 01/09/15 Calcium/D3/Argnin/Inos/Silicon [Bone Density Calcium + D Tablet] 2 each PO TID 06/11/18 Gabapentin [Neurontin 400 mg Capsule] 1,200 mg PO QPM 06/11/18 L.acid/L.casei/B.bif/B.sandy/Fos [Probiotic Blend Capsule] 1 each PO Q6 06/11/18 Levothyroxine Sodium [Synthroid 0.088 mg Tablet] 88 mcg PO Q6AM 06/11/18 Magnesium Citrate 100 mg PO Q6 06/11/18 Melatonin [Melatonin 5 mg Tablet] 5 mg PO QHS 06/11/18 Metoclopramide HCl [Reglan] 5 mg PO TIDP PRN 06/11/18 Ondansetron [Ondansetron Odt] 8 mg SL BIDP PRN 06/11/18 Albuterol Sulfate [Ventolin HFA MDI 18 GM] 2 puff IH Q4HP PRN 06/12/18 Hydromorphone HCl [Dilaudid 2 mg Tablet] 2 mg PO Q6HP PRN 06/12/18 Acetaminophen [Tylenol] 325 mg PO ASDIR PRN 03/27/20 Azathioprine 50 mg PO BID 03/27/20 Benzonatate 200 mg PO TIDP PRN 03/27/20 Biotin 5,000 mcg PO QID 03/27/20 Calcium Carb, Citrate/Vit D3 [Calcium + D3 ER Tablet] 1 each PO QPM 03/27/20 Cranberry 4200mg 4,200 mg PO DAILY 03/27/20 Diphenhydramine HCl [Benadryl] 50 mg PO QHS 03/27/20 Liothyronine Sodium [Cytomel] 5 mcg PO QAM 03/27/20 Mupirocin [Bactroban 2% Ointment 22 gm] 1 each TOP TID 03/27/20 Nifedipine [Nifedipine ER] 30 mg PO QAM 03/27/20 Nitrofurantoin Monohyd/M-Cryst [Macrobid 100 mg Capsule] 100 mg PO DAILYP PRN 03/27/20 Simethicone [Gas-X] 125 mg PO DAILYP PRN 03/27/20 Standard Process Spleen Pmg 1 each PO DAILY@12 03/27/20 Vit C/Ascorb Sod/Multivit-Min [Emergen-C 500 mg Chewable Tab] 500 mg pe PO DAILY 03/27/20 Albuterol Sulfate [Ventolin 0.083% Neb 2.5 mg/3 mL Ampul] 2.5 mg NEB Q6HP PRN #20 vial.neb 03/29/20 Prednisone [Deltasone 5 mg Tablet] See Protocol PO Q12 #162 03/29/20 History of Present Illiness History of Present Illness: CAROLINA MONTEZ is a 59 year old female with multiple medical comorbidities including asthma, lupus, rainouts, cryoglobulinemia, vasculitis, hypothyroidism, IBS, vocal cord disease, who presents to the hospital with complaints of pleuritic chest pain involving her right lower ribs as well as bilateral parasternal region as well as shortness of breath. Symptoms started 2 weeks ago and have progressed. This morning she feels very dyspneic had a hard time gregorio thing. She went to see a provider who referred her to the hospital for better control of her wheezing. Patient also endorses burning in throat. Chest pain is aggravated by taking a deep breath in and patient has been having cough which has persisted for the past 2 weeks. Denies any fever or chills and minimal sputum production. Has nebulizers at home which she has been taking. Hospital Course Hospital Course: Patient was admitted for treatment of shortness of breath. She was suspected to have an acute exacerbation of her asthma physical exam revealed some expiratory wheezing but significant stridor especially when sitting up. Chest x-ray was unremarkable for any infiltrates or acute processes. COVID-19 rapid test was negative. Blood work revealed no evidence of leukocytosis. Patient was started on nebulizer treatments as well as steroids IV for acute asthma exacerbation. Patient's stridor was also noted to be playing a role in patient's dyspnea. However patient had no work of breathing. Patient revealed that she had a diagnosis of "vocal fold malacia". Stridor responded nicely to racemic epinephrine on 2 different days. Unfortunately we do not have ENT power generation plant operator and was not able to reach ENT for 1 consult. However patient showed no evidence of airway compromise work of breathing. Patient also stated that she has a diagnos is of SLE and polychondritis as well as other autoimmune diseases for which she takes azathioprine and low-dose prednisone. I discussed elaborately personally over the phone with patient's assembler crimper about possibility of patient's relapsing polychondritis playing a role in patient's stridor and patient's assembler crimper Dr. Holm informed me that patient has not been officially diagnosed with polychondritis and that she was only told that she is being evaluated for the possibility of SLE VS polychondritis. He expressed that her conditions have been mostly chronic and the stridor has been a chronic issue for her. He also expressed that coming up with exact diagnosis for patient has been difficult but his evaluations have indicated that patient does have some kind of rheumatological and autoimmune disorder for which she has recommended azathioprine and prednisone. He was also agreeable with placing patient on a tapered dose of high-dose prednisone over the course of a few weeks and he will be following up with her in the office. I have discussed plan with patient and patient is stable and agreeable to plan. Patient will also been set up with home health. Patient prefers to schedule her own ENT appointment with [facility] as she states that a lot of her providers associated with them as well. Physical Exam Vital Signs: Temp Pulse Resp BP Pulse Ox 97.6 F 79 18 125/59 L 95 03/29/20 07:21 03/29/20 09:21 03/29/20 09:21 03/29/20 07:21 03/29/20 09:21 Intake & Output 03/28/20 03/29/20 03/30/20 06:59 06:59 06:59 Intake Total 1970 1320 Output Total 502 Balance 1468 1320 Weight 69.6 kg 70.5 kg General appearance: PRESENT: no acute distress, cooperative Neck exam: ABSENT: JVD Respiratory exam: PRESENT: stridor - Only mildly presents on sitting up. Seems to be chronic., unlabored, wheezes - Minimal expiratory wheeze. ABSENT: accessory muscle use, retraction, tachypnea Neurological exam: PRESENT: alert, awake Results Laboratory Results: WBC 9.7 10^3/uL (4.0-10.5) 03/27/20 10:17 RBC 5.38 10^6/uL (3.72-5.28) H 03/27/20 10:17 Hgb 17.2 g/dL (12.0-15.5) H 03/27/20 10:17 Hct 49.6 % (36.0-47.0) H 03/27/20 10:17 MCV 92 fl (80-97) 03/27/20 10:17 MCH 32.0 pg (27.0-33.4) 03/27/20 10:17 MCHC 34.8 g/dL (32.0-36.0) 03/27/20 10:17 RDW 14.2 % (11.5-14.0) H 03/27/20 10:17 Plt Count 266 10^3/uL (150-450) 03/27/20 10:17 Lymph % (Auto) 33.4 % (13-45) 03/27/20 10:17 [place] % (Auto) 7.0 % (3-13) 03/27/20 10:17 Eos % (Auto) 1.0 % (0-6) 03/27/20 10:17 Baso % (Auto) 0.4 % (0-2) 03/27/20 10:17 Absolute Neuts (auto) 5.7 10^3/uL (1.7-8.2) 03/27/20 10:17 Absolute Lymphs (auto) 3.3 10^3/uL (0.5-4.7) 03/27/20 10:17 Absolute Monos (auto) 0.7 10^3/uL (0.1-1.4) 03/27/20 10:17 Absolute Eos (auto) 0.1 10^3/uL (0.0-0.6) 03/27/20 10:17 Absolute Basos (auto) 0.0 10^3/uL (0.0-0.2) 03/27/20 10:17 Seg Neutrophils % 58.2 % (42-78) 03/27/20 10:17 ESR 5 mm/hr (0-30) 03/29/20 05:32 PT 13.8 SEC (11.4-15.4) 03/27/20 10:17 INR 1.06 03/27/20 10:17 APTT 25.3 SEC (23.5-35.8) 03/27/20 10:17 D-Dimer < 0.27 ug/mL (0.00-0.50) 03/27/20 10:17 Sodium 138.1 mmol/L (137-145) 03/29/20 05:32 Potassium 4.3 mmol/L (3.6-5.0) 03/29/20 05:32 Chloride 106 mmol/L (98-107) 03/29/20 05:32 Carbon Dioxide 23 mmol/L (22-30) 03/29/20 05:32 Anion Gap 9 (5-19) 03/29/20 05:32 BUN 19 mg/dL (7-20) 03/29/20 05:32 Creatinine 0.57 mg/dL (0.52-1.25) 03/29/20 05:32 Est GFR ( Amer) > 60 (>60) 03/29/20 05:32 Est GFR (MDRD) Non-Af > 60 (>60) 03/29/20 05:32 Glucose 140 mg/dL (75-110) H 03/29/20 05:32 Lactic Acid 2.0 mmol/L (0.7-2.1) 03/27/20 10:37 Calcium 8.9 mg/dL (8.4-10.2) 03/29/20 05:32 Total Bilirubin 0.4 mg/dL (0.2-1.3) 03/28/20 05:46 Direct Bilirubin 0.0 mg/dL (0.0-0.4) 03/28/20 05:46 Neonat Total Bilirubin Not Reportable 03/28/20 05:46 Neonat Direct Bilirubin Not Reportable 03/28/20 05:46 Neonat Indirect Bili Not Reportable 03/28/20 05:46 AST 25 U/L (14-36) 03/28/20 05:46 ALT 31 U/L (<35) 03/28/20 05:46 Alkaline Phosphatase 42 U/L (38-126) 03/28/20 05:46 Troponin I < 0.012 ng/mL 03/27/20 10:17 C-Reactive Protein < 5.0 mg/L (<10.0) 03/29/20 05:32 NT-Pro-B Natriuret Pep 20 pg/mL (<125) 03/27/20 10:17 Total Protein 6.1 g/dL (6.3-8.2) L 03/28/20 05:46 Albumin 3.9 g/dL (3.5-5.0) 03/28/20 05:46 TSH < 0.01 uIU/mL (0.47-4.68) L 03/27/20 10:17 Free T4 1.05 ng/dL (0.78-2.19) 03/28/20 05:46 Free T3 pg/mL 2.40 pg/mL (2.77-5.27) L 03/28/20 05:46 Urine Color YELLOW 03/27/20 10:59 Urine Appearance CLEAR 03/27/20 10:59 Urine pH 7.0 (5.0-9.0) 03/27/20 10:59 Ur Specific [place] 1.008 03/27/20 10:59 Urine Protein NEGATIVE mg/dL (NEGATIVE) 03/27/20 10:59 Urine Glucose (UA) NEGATIVE mg/dL (NEGATIVE) 03/27/20 10:59 Urine Ketones NEGATIVE mg/dL (NEGATIVE) 03/27/20 10:59 Urine Blood SMALL (NEGATIVE) H 03/27/20 10:59 Urine Nitrite NEGATIVE (NEGATIVE) 03/27/20 10:59 Urine Bilirubin NEGATIVE (NEGATIVE) 03/27/20 10:59 Urine Urobilinogen NEGATIVE mg/dL (<2.0) 03/27/20 10:59 Ur Leukocyte Esterase NEGATIVE (NEGATIVE) 03/27/20 10:59 Urine WBC (Auto) 0 /HPF 03/27/20 10:59 Urine RBC (Auto) 1 /HPF 03/27/20 10:59 Urine Bacteria (Auto) TRACE /HPF 03/27/20 10:59 Squamous Epi Cells Auto <1 /HPF 03/27/20 10:59 Urine Mucus (Auto) RARE /LPF 03/27/20 10:59 Urine Ascorbic Acid NEGATIVE (NEGATIVE) 03/27/20 10:59 COVID-19 Source Cancelled 03/27/20 10:44 COVID-19 (ROXY) Cancelled 03/27/20 10:44 SARS-CoV-2 (PCR) NEGATIVE (NEGATIVE) 03/27/20 10:44 Group A Strep Rapid NEGATIVE (NEGATIVE) 03/27/20 10:44 03/27/20 10:17 Troponin I < 0.012 NT-Pro-B Natriuret Pep 20 Impressions: Chest X-Ray 03/27/20 10:23 IMPRESSION: NO ACUTE RADIOGRAPHIC FINDING IN THE CHEST. Plan Time Spent: Less than 30 Minutes Stroke Is this a Stroke Patient?: No Acute Heart Failure - Is this a Heart Failure Patient?: No
[2020-03-29 12:58] VITALS: BP 128/52
== END 2020-03-29 16:14 | disposition home health service (06) | DRG 203 ==
LOC: ER 10:13 → EH 13:59 → 4S 15:42
PROVIDERS: ADMIT Internal Medicine; ATTEND Internal Medicine
PROC: 5A09357 Assistance with Respiratory Ventilation, Less than 24 Consecutive Hours, Continuous Positive Airway Pressure (ICD-10-PCS; principal; 2020-03-28)
DX: J45.901 Unspecified asthma with (acute) exacerbation (principal); J39.8 Other specified diseases of upper respiratory tract; E03.9 Hypothyroidism, unspecified; M32.9 Systemic lupus erythematosus, unspecified; R06.1 Stridor; D89.1 Cryoglobulinemia; K58.9 Irritable bowel syndrome, unspecified; M94.8X9 Other specified disorders of cartilage, unspecified sites; K21.9 Gastro-esophageal reflux disease without esophagitis; M94.1 Relapsing polychondritis; M79.7 Fibromyalgia; Z79.890 Hormone replacement therapy; Z79.899 Other long term (current) drug therapy; Z88.6 Allergy status to analgesic agent; Z88.4 Allergy status to anesthetic agent; Z88.1 Allergy status to other antibiotic agents; Z91.041 Radiographic dye allergy status; Z88.0 Allergy status to penicillin; Z88.8 Allergy status to other drugs, medicaments and biological substances; Z91.018 Allergy to other foods; Z91.02 Food additives allergy status; Z85.43 Personal history of malignant neoplasm of ovary
CPT/HCPCS: 36415; 71045; 80048; 80053; 81001; 83605; 83880; 84439; 84443; 84481; 84484; 85025; 85379; 85610; 85652; 85730; 86140; 87040; 87070; 87077; 87635; 87880; 93005; 93010; 94640; 96365; 96375; 96376; 99285; J2405; J2920; J2930; J3475; J3490; J7030; J7500; J7620

== ENCOUNTER 2020-04-22 15:24 | Emergency (ER) | payer MEDICARE ==
--- NOTE | 2020-04-22 16:33 | RADIOLOGY REPORT (SQ) ---
EXAM DESCRIPTION: CHEST SINGLE VIEW IMAGES COMPLETED DATE/TIME: 04/22/2020 4:20 pm REASON FOR STUDY: Dyspnea COMPARISON: AP view of the chest from 03/27/2020. EXAM PARAMETERS: NUMBER OF VIEWS: One view. TECHNIQUE: An AP view of the chest was obtained. RADIATION DOSE: NA LIMITATIONS: None. FINDINGS: LUNGS AND PLEURA: No consolidation, pleural effusion or pneumothorax. MEDIASTINUM AND HILAR STRUCTURES: No mediastinal or hilar contour abnormality. HEART AND VASCULAR STRUCTURES: The cardiac silhouette is enlarged. The pulmonary vasculature is with in normal limits. BONES: No acute findings. HARDWARE: Cholecystectomy clips. OTHER: No other finding. IMPRESSION: Cardiomegaly without a superimposed acute cardiopulmonary process. TECHNICAL DOCUMENTATION: JOB ID: [id number] 2010 [employer]- All Rights Reserved Reading location - IP/workstation name: [email or web address]
[2020-04-22 16:34] LABS: ABSOLUTE EOSINOPHILS # (AUTO) 0.1 10^3/uL (0.0-0.6); ABSOLUTE LYMPHOCYTES (AUTO) 1.3 10^3/uL (0.5-4.7); ABSOLUTE MONOCYTES (AUTO) 0.3 10^3/uL (0.1-1.4); ABSOLUTE NEUT (AUTO) 2.6 10^3/uL (1.7-8.2); EOSINOPHILS % (AUTO) 1.3 % (0-6); HEMATOCRIT 48.2 % (36.0-47.0); HEMOGLOBIN 16.3 g/dL (12.0-15.5); LYMPHOCYTES % (AUTO) 30.2 % (13-45); MEAN CORPUSCULAR HEMOGLOBIN 32.3 pg (27.0-33.4); MEAN CORPUSCULAR HGB CONC 33.8 g/dL (32.0-36.0); MEAN CORPUSCULAR VOLUME 96 fl (80-97); MONOCYTES % (AUTO) 6.9 % (3-13); PLATELET COUNT 189 10^3/uL (150-450); RED BLOOD COUNT 5.05 10^6/uL (3.72-5.28); RED CELL DISTRIBUTION WIDTH 15.9 % (11.5-14.0); SEGMENTED NEUTROPHILS % (AUTO) 60.6 % (42-78); TOTAL CELLS COUNTED % (AUTO) 100 %; WHITE BLOOD COUNT 4.3 10^3/uL (4.0-10.5)
[2020-04-22 16:41] LABS: ALBUMIN 4.3 g/dL (3.5-5.0); ALKALINE PHOSPHATASE 68 U/L (38-126); ANION GAP 6 (5-19); ASPARTATE AMINO TRANSFERASE 41 U/L (14-36); BILIRUBIN,TOTAL 0.6 mg/dL (0.2-1.3); BLOOD UREA NITROGEN 22 mg/dL (7-20); CALCIUM 9.1 mg/dL (8.4-10.2); CARBON DIOXIDE 32 mmol/L (22-30); CHLORIDE 100 mmol/L (98-107); GLUCOSE 113 mg/dL (75-110); POTASSIUM 3.9 mmol/L (3.6-5.0); TOTAL PROTEIN 6.7 g/dL (6.3-8.2)
--- NOTE | 2020-04-22 17:20 | ER Document Report ---
ED General - General Chief Complaint: Breathing Difficulty Stated Complaint: DIFFICULTY BREATHING Time Seen by Provider: 04/22/20 15:42 Primary Care Provider: ERIC ESCOBAR PA-C [Primary Care Provider] - Follow up as needed Mode of Arrival: Medic Information source: Patient TRAVEL OUTSIDE OF THE [place] IN LAST 30 DAYS: No - HPI Notes: Patient presents complaining of shortness of breath. She states she has a history of asthma and this feels like her usual asthma exacerbation. She states she has been taking her nebulizers at home but without significant relief. She states she is also recently been on a steroid taper and has felt fine until she began to taper down to 1 pill a day over the last couple of days. She states she has felt hot and had some subjective fevers. No vomiting or diarrhea. No rashes. No significant new cough. The shortness of breath is been constant. Is been moderate to severe. It is worse with exertion and better with rest. It does not radiate. - Related Data Allergies/Adverse Reactions: caffeine [Caffeine] Allergy (Severe, Verified 03/27/20 10:28) sets off autoimmune response ethyl chloride [Ethyl Chloride] Allergy (Severe, Verified 03/27/20 10:28) Anaphylaxis iodine [Iodine] Allergy (Severe, Verified 03/27/20 10:28) Anaphylaxis lidocaine HCl [From Xylocaine] Allergy (Severe, Verified 03/27/20 10:28) Anaphylaxis morphine [Morphine] Allergy (Severe, Verified 03/27/20 10:28) swelling, AMS pentazocine lactate [From Talwin] Allergy (Severe, Verified 03/27/20 10:28) Hallucinations procaine HCl [From Novocain] Allergy (Severe, Verified 03/27/20 10:28) Anaphylaxis carisoprodol [From Soma] Allergy (Intermediate, Verified 03/27/20 10:28) muscle problems Iodinated Contrast Media [IV Dye, Iodine Containing] Allergy (Intermediate, Verified 03/27/20 10:28) Anaphylaxis pentazocine [Pentazocine] Allergy (Intermediate, Verified 03/27/20 10:28) Hallucinations adhesive tape [Adhesive Tape] Allergy (Mild, Verified 03/27/20 10:28) sores, skin peeled off paraben [Paraben] Allergy (Mild, Verified 03/27/20 10:28) rash ampicillin [Ampicillin] Allergy (Unknown, Verified 03/27/20 10:28) convulsions atropine [Atropine] Allergy (Unknown, Verified 03/27/20 10:28) unknown chicken derived [Chicken Derived] Allergy (Unknown, Verified 03/27/20 10:28) unknown pineapple [Pineapple] Allergy (Unknown, Verified 03/27/20 10:28) unknown wheat [Wheat] Allergy (Unknown, Verified 03/27/20 10:28) unknown acetic acid [Acetic Acid] Adverse Reaction (Mild, Verified 03/27/20 10:28) flu like symptoms hops Allergy (Severe, Uncoded 03/27/20 10:28) severe asthma perfume Ht 52 Allergy (Severe, Uncoded 03/27/20 10:28) Anaphylaxis acrylic Allergy (Intermediate, Uncoded 03/27/20 10:28) swelling fluoride Allergy (Unknown, Uncoded 03/27/20 10:28) unknown local anesthetics Allergy (Uncoded 03/27/20 10:28) Past Medical History - General Information source: Patient - Social History Smoking Status: Never Smoker Chew tobacco use (# tins/day): No Frequency of alcohol use: None Drug Abuse: None Family History: Reviewed & Not Pertinent Patient has homicidal ideation: No - Past Medical History Cardiac Medical History: Denies: Hx Coronary Artery Disease, Hx Heart Attack, Hx Hypertension Pulmonary Medical History: Reports: Hx Asthma Denies: Hx Bronchitis, Hx COPD, Hx Pneumonia Neurological Medical History: Denies: Hx Cerebrovascular Accident, Hx Seizures Endocrine Medical History: Reports: Hx Hypothyroidism Renal/ Medical History: Denies: Hx Peritoneal Dialysis Malignancy Medical History: Reports: Hx Ovarian Cancer GI Medical History: Reports: Hx Gastroesophageal Reflux Disease Musculoskeletal Medical History: Reports Hx Arthritis, Reports Hx Fibromyalgia Psychiatric Medical History: Reports: Hx Anxiety, Hx Depression Past Surgical History: Reports: Hx Appendectomy, Hx Bowel Surgery, Hx Cholecystectomy, Hx Hysterectomy, Hx Pancreatic Surgery - Multiple ERCP procedure with stent placement and removal, last surgery was, Other - Surgery to remove adhesions - Immunizations Hx Diphtheria, Pertussis, Tetanus Vaccination: No Review of Systems - Review of Systems Constitutional: Fever, Weakness Cardiovascular: Chest pain. denies: Palpitations Respiratory: Short of breath, Wheezing. denies: Cough -: Yes All other systems reviewed and negative Physical Exam - Vital signs Vitals: Temp 97.6 F 04/22/20 15:29 Interpretation: Normal - General General appearance: Appears well, Alert - HEENT Head: Normocephalic, Atraumatic Eyes: Normal Pupils: PERRL - Respiratory Respiratory status: No respiratory distress Chest status: Nontender Breath sounds: Decreased air movement, Wheezing - mild Chest palpation: Normal - Cardiovascular Rhythm: Regular Heart sounds: Normal auscultation Murmur: No - Abdominal Inspection: Normal Distension: No distension Bowel sounds: Normal Tenderness: Nontender Organomegaly: No organomegaly - Back Back: Normal, Nontender - Extremities General upper extremity: Normal inspection, Nontender, Normal color, Normal ROM, Normal temperature General lower extremity: Normal inspection, Nontender, Normal color, Normal ROM, Normal temperature, Normal weight bearing. No: Silvia's sign - Neurological Neuro grossly intact: Yes Cognition: Normal Orientation: AAOx4 [place] Coma Scale Eye Opening: Spontaneous [place] Coma Scale Verbal: Oriented [place] Coma Scale Motor: Obeys Commands [place] Coma Scale Total: 15 Speech: Normal Motor strength normal: LUE, RUE, LLE, RLE Sensory: Normal - Psychological Associated symptoms: Normal affect, Normal mood - Skin Skin Temperature: Warm Skin Moisture: Dry Skin Color: Normal Course - Re-evaluation Re-evalutation: 04/22/20 17:18 Patient presents with complaints of shortness of breath. She states she has history of asthma and is using her inhalers but the shortness of breath is not relieved. On my exam. Patient has no wheezing to mild wheezing. She has no labored respirations. She has normal vital signs including oxygen saturation of 95% on room air. Patient's chest x-ray is stable and without any acute process. She does not have an elevated white blood cell count. She does not have a fever. Patient's chemistries are stable as well. There is no evidence of heart failure. I do not see any in evidence of any infectious process. She has no known COVID exposures. This apparent mild exacerbation of asthma appears to coincide with decreasing her dose of prednisone. I am going to have her increase her dose of prednisone and call her family physician first thing in the morning. I did explain to patient that with the current COVID pandemic I do not feel that hospitalization would be the best treatment but that we should give an initial try of treating this as an outpatient. - Vital Signs Vital signs: Temp Pulse Resp BP Pulse Ox 97.6 F 18 121/91 H 95 04/22/20 15:29 04/22/20 15:35 04/22/20 15:35 04/22/20 16:48 - Laboratory Result Diagrams: 04/22/20 15:15 04/22/20 15:15 Laboratory results interpreted by me: 04/22/20 04/22/20 15:15 15:15 Hgb 16.3 H Hct 48.2 H RDW 15.9 H Carbon Dioxide 32 H BUN 22 H Glucose 113 H AST 41 H ALT 90 H - Diagnostic Test Radiology reviewed: Image reviewed, Reports reviewed - EKG Interpretation by Me EKG shows normal: Sinus rhythm Rate: Normal - 80 Rhythm: NSR [place]/QRS: No: Right axis deviation, Left axis deviation Discharge - Discharge Clinical Impression: Asthma exacerbation Qualifiers: Asthma severity: mild Asthma persistence: persistent Qualified Code(s): J45.31 - Mild persistent asthma with (acute) exacerbation Condition: Stable Disposition: HOME, SELF-CARE Instructions: Asthma ([facility]) Additional Instructions: Please call your family physician first thing in the morning to arrange for follow-up. If you have any further problems and are unable to see your family physician please return to the emergency department. Prescriptions: Prednisone 10 mg PO DAILY 10 Days tablet Referrals: ERIC ESCOBAR PA-C [Primary Care Provider] - Follow up tomorrow
[2020-04-22 17:39] VITALS: BP 108/51
--- NOTE | 2020-04-22 22:35 | EKG REPORT ---
SEVERITY:- ABNORMAL ECG - SINUS RHYTHM : Confirmed by: Peter Abebe 22-Apr-2020 22:34:17
== END 2020-04-22 18:07 | disposition home or self-care (01) ==
LOC: ER 15:24
DX: J45.31 Mild persistent asthma with (acute) exacerbation (principal); Z90.49 Acquired absence of other specified parts of digestive tract; Z90.710 Acquired absence of both cervix and uterus; Z88.6 Allergy status to analgesic agent
CPT/HCPCS: 36415; 71045; 80053; 83880; 85025; 87040; 93005; 93010; 99285

== ENCOUNTER 2020-05-09 13:41 | Emergency (ER) | payer MEDICARE ==
[2020-05-09] MEDS ORDERED: IPRATROPIUM/ALBUTEROL 0.5-2.5 MG/3 ML AMPUL NEB ONE ×2 (13:52→14:48)
[2020-05-09] MEDS ORDERED: PREDNISONE 20 MG TABLET PO ONE (13:52)
[2020-05-09] MEDS: ALBUTEROL SULFATE 0.083% NEB 2.5 MG/3 ML AMPUL NEB SCH ×2 (14:00→14:09)
[2020-05-09] MEDS ORDERED: METHYLPREDNISOLONE INJ 125 MG/2 ML SDV IV ONE (14:10)
[2020-05-09] MEDS ORDERED: PROMETHAZINE HCL INJ 25 MG/1 ML VIAL IV ONE (14:19)
--- NOTE | 2020-05-09 14:28 | RADIOLOGY REPORT (SQ) ---
EXAM DESCRIPTION: CHEST SINGLE VIEW IMAGES COMPLETED DATE/TIME: 05/09/2020 2:13 pm REASON FOR STUDY: SOB COMPARISON: 04/22/2020 NUMBER OF VIEWS: One view. TECHNIQUE: Single frontal radiographic view of the chest acquired. LIMITATIONS: None. FINDINGS: LUNGS AND PLEURA: No opacities, masses or pneumothorax. No pleural effusion. MEDIASTINUM AND HILAR STRUCTURES: No masses or contour abnormality. HEART AND VASCULATURE: Cardiac enlargement. Vascular congestion. BONES: No acute findings. HARDWARE: None in the chest. OTHER: No other significant finding. IMPRESSION: CARDIAC ENLARGEMENT. VASCULAR CONGESTION. TECHNICAL DOCUMENTATION: JOB ID: [id number] 2010 [employer]- All Rights Reserved Reading location - IP/workstation name: [email or web address]
[2020-05-09 14:38] LABS: HEMATOCRIT 48.1 % (36.0-47.0); HEMOGLOBIN 16.6 g/dL (12.0-15.5); MEAN CORPUSCULAR HEMOGLOBIN 33.1 pg (27.0-33.4); MEAN CORPUSCULAR HGB CONC 34.5 g/dL (32.0-36.0); MEAN CORPUSCULAR VOLUME 96 fl (80-97); PLATELET COUNT 246 10^3/uL (150-450); RED BLOOD COUNT 5.01 10^6/uL (3.72-5.28); RED CELL DISTRIBUTION WIDTH 16.4 % (11.5-14.0); WHITE BLOOD COUNT 8.5 10^3/uL (4.0-10.5)
[2020-05-09] MEDS ORDERED: DIPHENHYDRAMINE HCL 50 MG/ML VIAL IV ONE (14:41)
[2020-05-09 14:57] LABS: ALBUMIN 4.3 g/dL (3.5-5.0); ALKALINE PHOSPHATASE 96 U/L (38-126); ANION GAP 7 (5-19); ASPARTATE AMINO TRANSFERASE 56 U/L (14-36); BILIRUBIN,TOTAL 0.4 mg/dL (0.2-1.3); BLOOD UREA NITROGEN 23 mg/dL (7-20); CALCIUM 9.5 mg/dL (8.4-10.2); CARBON DIOXIDE 31 mmol/L (22-30); CHLORIDE 99 mmol/L (98-107); GLUCOSE 152 mg/dL (75-110); POTASSIUM 4.1 mmol/L (3.6-5.0); TOTAL PROTEIN 6.7 g/dL (6.3-8.2)
[2020-05-09 15:16] LABS: ABSOLUTE LYMPHOCYTES# (MANUAL) 2.4 10^3/uL (0.5-4.7); ABSOLUTE MONOCYTES # (MANUAL) 0.3 10^3/uL (0.1-1.4); BAND NEUTROPHILS % (MANUAL) 1 % (3-5); BASOPHILS % (MANUAL) 0 % (0-2); EOSINOPHILS % (MANUAL) 0 % (0-6); LYMPHOCYTES % (MANUAL) 28 % (13-45); MONOCYTES % (MANUAL) 4 % (3-13); SEGMENTED NEUTROPHILS % (MAN) 67 % (42-78); TOTAL CELLS COUNTED 100
[2020-05-09 15:17] LABS: ANISOCYTOSIS 1+; PLATELET COMMENT ADEQUATE
--- NOTE | 2020-05-09 16:21 | ER Document Report ---
ED General - General Chief Complaint: Asthma Exacerbation Stated Complaint: DIFFICULTY BREATHING Primary Care Provider: SHWETHA ARBOLEDA PA-C [Primary Care Provider] - Follow up tomorrow DAYAMI ROSENBAUM MD [ACTIVE STAFF] - Follow up as needed TRAVEL OUTSIDE OF THE [place] IN LAST 30 DAYS: No - HPI Notes: 59 year old female with a history of asthma, lupus, hypothyroidism, IBS, vocal cord dysfunction presents to the ER today for complaints of asthma exacerbation while she was at CT today to obtain a CT of her chest for dyspnea for gastroparesis. Patient has a history of multiple asthma exacerbations. Patient is taking 60 mg of prednisone daily. Patient denies any chest pain, nausea vomiting diarrhea, fevers chills, swelling in her legs or hands. Patient states she frequently does get asthma exacerbations. Denies fevers, chills, chest pain,palpitations, s nausea, vomiting, diarrhea, abdominal pain, hematuria,blurred vision, double vision, loss of vision, speech changes, LH, dizziness, syncope, headaches, wheezing, ST, URI, neck pain, weakness, bowel or bladder dysfunction, saddle anesthesia, numbness or tingling in bilateral upper or lower extremities equally, muscle paralysis, weakness in bilateral upper or lower extremities equally or rash. - Related Data Allergies/Adverse Reactions: caffeine [Caffeine] Allergy (Severe, Verified 05/09/20 14:19) sets off autoimmune response ethyl chloride [Ethyl Chloride] Allergy (Severe, Verified 05/09/20 14:19) Anaphylaxis iodine [Iodine] Allergy (Severe, Verified 05/09/20 14:19) Anaphylaxis lidocaine HCl [From Xylocaine] Allergy (Severe, Verified 05/09/20 14:19) Anaphylaxis morphine [Morphine] Allergy (Severe, Verified 05/09/20 14:19) swelling, AMS pentazocine lactate [From Talwin] Allergy (Severe, Verified 05/09/20 14:19) Hallucinations procaine HCl [From Novocain] Allergy (Severe, Verified 05/09/20 14:19) Anaphylaxis carisoprodol [From Soma] Allergy (Intermediate, Verified 05/09/20 14:19) muscle problems Iodinated Contrast Media [IV Dye, Iodine Containing] Allergy (Intermediate, Verified 05/09/20 14:19) Anaphylaxis pentazocine [Pentazocine] Allergy (Intermediate, Verified 06/18/20 14:19) Hallucinations adhesive tape [Adhesive Tape] Allergy (Mild, Verified 05/09/20 14:19) sores, skin peeled off paraben [Paraben] Allergy (Mild, Verified 05/09/20 14:19) rash ampicillin [Ampicillin] Allergy (Unknown, Verified 05/09/20 14:19) convulsions atropine [Atropine] Allergy (Unknown, Verified 05/09/20 14:19) unknown chicken derived [Chicken Derived] Allergy (Unknown, Verified 05/09/20 14:19) unknown pineapple [Pineapple] Allergy (Unknown, Verified 05/09/20 14:19) unknown wheat [Wheat] Allergy (Unknown, Verified 05/09/20 14:19) unknown acetic acid [Acetic Acid] Adverse Reaction (Mild, Verified 05/09/20 14:19) flu like symptoms hops Allergy (Severe, Uncoded 05/09/20 14:19) severe asthma perfume Ht 52 Allergy (Severe, Uncoded 05/09/20 14:19) Anaphylaxis acrylic Allergy (Intermediate, Uncoded 05/09/20 14:19) swelling fluoride Allergy (Unknown, Uncoded 05/09/20 14:19) unknown local anesthetics Allergy (Uncoded 05/09/20 14:19) Past Medical History - General Information source: Patient - Social History Smoking Status: Never Smoker Frequency of alcohol use: None Drug Abuse: None Family History: Reviewed & Not Pertinent Patient has homicidal ideation: No - Past Medical History Cardiac Medical History: Denies: Hx Coronary Artery Disease, Hx Heart Attack, Hx Hypertension Pulmonary Medical History: Reports: Hx Asthma Denies: Hx Bronchitis, Hx COPD, Hx Pneumonia Neurological Medical History: Denies: Hx Cerebrovascular Accident, Hx Seizures Endocrine Medical History: Reports: Hx Hypothyroidism Renal/ Medical History: Denies: Hx Peritoneal Dialysis Malignancy Medical History: Reports: Hx Ovarian Cancer GI Medical History: Reports: Hx Gastroesophageal Reflux Disease Musculoskeletal Medical History: Reports Hx Arthritis, Reports Hx Fibromyalgia Psychiatric Medical History: Reports: Hx Anxiety, Hx Depression Past Surgical History: Reports: Hx Appendectomy, Hx Bowel Surgery, Hx Cholecystectomy, Hx Hysterectomy, Hx Pancreatic Surgery - Multiple ERCP procedure with stent placement and removal, last surgery was, Other - Surgery to remove adhesions - Immunizations Hx Diphtheria, Pertussis, Tetanus Vaccination: No Review of Systems - Review of Systems Constitutional: No symptoms reported EENT: No symptoms reported Cardiovascular: No symptoms reported Respiratory: See HPI Gastrointestinal: No symptoms reported Genitourinary: No symptoms reported Female Genitourinary: No symptoms reported Musculoskeletal: No symptoms reported Skin: No symptoms reported Hematologic/Lymphatic: No symptoms reported Neurological/Psychological: No symptoms reported Physical Exam - Vital signs Vitals: Temp 98.2 F 05/09/20 14:25 - Notes Notes: MEDICATIONS: I agree with the patient medications as charted by the RN. ALLERGIES: I agree with the allergies as charted by the RN. PAST MEDICAL HISTORY/PAST SURGICAL HISTORY: Reviewed and agree as charted by RN. SOCIAL HISTORY: Reviewed and agree as charted by RN. FAMILY HISTORY: No significant familial comorbid conditions directly related to patient complaint EXAM: Reviewed vital signs as charted by RN. PHYSICAL EXAMINATION: reviewed vital signs by RN GENERAL: Well-appearing, well-nourished and in no acute distress. HEAD: Atraumatic, normocephalic. EYES: Pupils equal round and reactive to light, extraocular movements intact, conjunctiva are normal. ENT: Nares patent, oropharynx clear without exudates. Moist mucous membranes. NECK: Normal range of motion, supple without lymphadenopathy LUNGS: Wheezing throughout. No rales or rhonchi. HEART: Regular rate and rhythm without murmurs ABDOMEN: Soft, nontender, nondistended abdomen. No guarding, no rebound. No masses appreciated. Female : deferred Musculoskeletal: Normal range of motion, no pitting or edema. No cyanosis. NEUROLOGICAL: Cranial nerves grossly intact. Normal speech, normal gait. Normal sensory, motor exams PSYCH: Normal mood, normal affect. SKIN: Warm, Dry, normal turgor, no rashes or lesions noted. No pedal edema bilaterally. No pitting edema bilaterally. Distal pulses +2 bilaterally and equally. Course - Re-evaluation Re-evalutation: 05/09/20 17:32 Afebrile, patient is 100% on 2 L of oxygen which was placed on her for oxygen protocol for asthma exacerbation, blood pressure normal, heart rate in the 80s. CBC negative for leukocytosis or anemia, CMP negative for hepatic or renal dysfunction. EKG non-STEMI, normal sinus rhythm no ST segment changes. Patient is responding to all of my questions in full sentences, is not dyspneic. Patient received 3 DuoNeb's and 125 Solu-Medrol as well as 50 mg of Benadryl. Chest x-ray shows vascular congestion however patient just had a CT of her chest done which did not show any vascular congestion. Patient does not have any pedal edema bilaterally, no pitting edema, patient does not have any rales or rhonchi. On reevaluation after these treatments, this patient's breath sounds were clear to auscultation completely, patient states she felt much better. There is no history of heart failure, there is no evidence of heart failure on examination. 2 and half hours after initial treatment, patient was sleeping peacefully, 96% on room air, speaking in full sentences as well, states she feels much better and states she is ready to go home. I do not feel that patient is having any heart failure. she denies any COVID exposure. Discussed findings with caleb Delacruz, who agreed with clinical examination. Expressed in great detail with patient as well as signs and symptoms to look for such as increased worsening shortness of breath, dyspnea on exertion, swelling in feet and ankles. Patient and verbalized understanding of this and agreed that they will return if there is any changes as discussed. After performing a Medical Screening Examination, I estimate there is LOW risk for RUPTURED ESOPHAGUS, PNEUMOTHORAX, PULMONARY EMBOLISM, ACUTE CORONARY SYNDROME, CHF OR THORACIC AORTIC DISSECTION, thus I consider the discharge disposition reasonable. I have reevaluated this patient multiple times and no significant life threatening changes are noted. The patient and I have discussed the diagnosis and risks, and we agree with discharging home with close follow-up. We also discussed returning to the Emergency Department immediately if new or worsening symptoms occur. We have discussed the symptoms which are most concerning (e.g., bloody sputum, worsening pain or shortness of breath) that necessitate immediate return. 05/09/20 17:35 - Vital Signs Vital signs: Temp Pulse Resp BP Pulse Ox 97.6 F 87 22 H 130/58 H 96 05/09/20 16:35 05/09/20 16:35 05/09/20 16:35 05/09/20 16:35 05/09/20 16:35 - Laboratory Result Diagrams: 05/09/20 14:12 05/09/20 14:12 Laboratory results interpreted by me: 05/09/20 05/09/20 14:12 14:12 Hgb 16.6 H Hct 48.1 H RDW 16.4 H Band Neutrophils % 1 L Carbon Dioxide 31 H BUN 23 H Glucose 152 H AST 56 H ALT 108 H Discharge - Discharge Clinical Impression: Acute asthma exacerbation Condition: Stable Disposition: HOME, SELF-CARE Instructions: Asthma ([facility]), Inhaled Bronchodilators ([facility]) Additional Instructions: Please continue to take your prescribed daily prednisone course as well as using her rescue inhaler. You were given IV Solu-Medrol today as well as Benadryl. Your labs today were normal as well as your EKG. Please follow-up with your primary care provider within the next 24 hours. Please return to the emergency room if you experience any fevers, shortness of breath, chest pain, difficulty breathing, vomiting etc. Return immediately for any new or worsening symptoms. Follow up with primary care provider, call tomorrow to make followup appointment. Referrals: SHWETHA ARBOLEDA PA-C [Primary Care Provider] - Follow up tomorrow DAAYMI ROSENBAUM MD [ACTIVE STAFF] - Follow up as needed
[2020-05-09 16:37] VITALS: BP 130/58
--- NOTE | 2020-05-09 18:43 | EKG REPORT ---
SEVERITY:- BORDERLINE ECG - SINUS RHYTHM PROBABLE LEFT ATRIAL ABNORMALITY : Confirmed by: Alvaro Lewis MD 09-May-2020 18:42:34
== END 2020-05-09 16:38 | disposition home or self-care (01) ==
LOC: ER 13:41
DX: J45.901 Unspecified asthma with (acute) exacerbation (principal); Z79.52 Long term (current) use of systemic steroids; Z91.018 Allergy to other foods; Z87.892 Personal history of anaphylaxis; Z88.4 Allergy status to anesthetic agent; Z91.041 Radiographic dye allergy status; Z88.6 Allergy status to analgesic agent; Z88.5 Allergy status to narcotic agent; Z91.048 Other nonmedicinal substance allergy status; Z88.0 Allergy status to penicillin; Z88.8 Allergy status to other drugs, medicaments and biological substances
CPT/HCPCS: 93005; 94640 ×2; 99285; 96374; 96375; 36415; 85025; 80053; 71045; 93010; J1200; J2930; J2550; A9270 ×2; 71250; 74176; J7620

== ENCOUNTER → 2020-05-09 | Outpatient (CLI) | payer MEDICARE ==
--- NOTE | 2020-05-09 15:20 | RADIOLOGY REPORT (SQ) ---
EXAM DESCRIPTION: CT CHEST WITHOUT IMAGES COMPLETED DATE/TIME: 05/09/2020 1:38 pm REASON FOR STUDY: M62.838 OTHER MUSCLE SPASM, K31.84 GASTROPARESIS, R06.00 DYSPNEA, UNSPECIFI M62.83 8 OTHER MUSCLE SPASM K31.84 GASTROPARESIS R06.00 DYSPNEA, UNSPECIFIED COMPARISON: 2010. TECHNIQUE: CT scan performed of the chest without intravenous contrast. Images reviewed with lung, soft tissue and bone windows. Reconstructed coronal and sagittal MPR images reviewed. All images st ored on PACS. All CT scanners at this facility use dose modulation, iterative reconstruction, and/or weight based d osing when appropriate to reduce radiation dose to as low as reasonably achievable (ALARA). [facility]: Dose Right [facility]: CareDose [facility]: Dose Right [facility]: Teradose 4D [facility]: Smart [employer] RADIATION DOSE: mGy. LIMITATIONS: No technical limitations. FINDINGS: LUNGS AND PLEURA: No masses, infiltrates, or pneumothorax. No pleural effusions or pleura l calcifications. HILAR AND MEDIASTINAL STRUCTURES: No identified masses or abnormal nodes. No obvious aneurysm. HEART AND VASCULAR STRUCTURES: No aneurysm. No pericardial effusion. UPPER ABDOMEN: See separate report of the CT of the abdomen. THYROID AND OTHER SOFT TISSUES: No masses. No adenopathy. BONES: Nothing acute. HARDWARE: None in the chest. OTHER: No other significant findings. IMPRESSION: NO SIGNIFICANT FINDING ON NON-CONTRASTED CHEST CT. TECHNICAL DOCUMENTATION: JOB ID: [id number] Quality ID # [id number]: Final reports with documentation of one or more dose reduction techniques (e.g., Au tomated exposure control, adjustment of the mA and/or kV according to patient size, use of iterative reconstruction technique) 2010 [employer]- All Rights Reserved Reading location - IP/workstation name: [email or web address]
--- NOTE | 2020-05-09 15:27 | RADIOLOGY REPORT (SQ) ---
EXAM DESCRIPTION: CT ABD/PELVIS NO ORAL OR IV IMAGES COMPLETED DATE/TIME: 05/09/2020 1:37 pm REASON FOR STUDY: M62.838 OTHER MUSCLE SPASM, K31.84 GASTROPARESIS, R06.00 DYSPNEA, UNSPECIFI M62.83 8 OTHER MUSCLE SPASM K31.84 GASTROPARESIS R06.00 DYSPNEA, UNSPECIFIED COMPARISON: 06/11/2018 TECHNIQUE: CT scan of the abdomen and pelvis performed without intravenous or oral contrast. Images reviewed with lung, soft tissue, and bone windows. Reconstructed coronal and sagittal MPR images revi ewed. All images stored on PACS. All CT scanners at this facility use dose modulation, iterative reconstruction, and/or weight based d osing when appropriate to reduce radiation dose to as low as reasonably achievable (ALARA). [facility]: Dose Right [facility]: CareDose [facility]: Dose Right [facility]: Teradose 4D [facility]: Smart [employer] RADIATION DOSE: CT Rad equipment meets quality standard of care and radiation dose reduction techniq ues were employed. CTDIvol: 5.4 - 6.1 mGy. DLP: 533 mGy-cm.mGy. LIMITATIONS: None. FINDINGS: LOWER CHEST: See separate report of the CT of the chest. NON-CONTRASTED LIVER, SPLEEN, ADRENALS: Chronic pneumobilia. PANCREAS: No masses. No peripancreatic inflammatory changes. GALLBLADDER: Surgically absent. RIGHT KIDNEY AND URETER: No suspicious masses. Assessment limited by lack of IV contrast. No signif icant calcifications. No hydronephrosis or hydroureter. LEFT KIDNEY AND URETER: No suspicious masses. Assessment limited by lack of IV contrast. No signifi cant calcifications. No hydronephrosis or hydroureter. AORTA AND RETROPERITONEUM: No aneurysm. No retroperitoneal masses or adenopathy. BOWEL AND PERITONEAL CAVITY: No obvious masses or inflammatory changes. No free fluid. APPENDIX: Not visualized. PELVIS, BLADDER, AND ABDOMINAL WALL:Anterior abdominal wall melany. Artifact from left hip arthropl asty. No abnormal masses. No free fluid. Bladder normal. BONES: Nothing acute. OTHER: No other significant finding. IMPRESSION: No acute findings. No significant change. COMMENT: Quality ID # [id number]: Final reports with documentation of one or more dose reduction techniques (e.g., Automated exposure control, adjustment of the mA and/or kV according to patient size, use of iterative reconstruction technique) TECHNICAL DOCUMENTATION: JOB ID: [id number] 2010 [employer]- All Rights Reserved Reading location - IP/workstation name: [email or web address]
== END ==
LOC: RAD 13:14
PROVIDERS: ATTEND Physician Assistant
DX: M62.838 Other muscle spasm (principal); K31.84 Gastroparesis; R06.00 Dyspnea, unspecified
CPT/HCPCS: 71250; 74176

== ENCOUNTER 2020-08-02 17:35 | Inpatient (IN) | payer MEDICARE ==
[2020-08-02] MEDS ORDERED: IPRATROPIUM/ALBUTEROL 0.5-2.5 MG/3 ML AMPUL NEB ONE (17:54)
[2020-08-02 18:11] LABS: ABSOLUTE BASOPHILS # (AUTO) 0.1 10^3/uL (0.0-0.2); ABSOLUTE LYMPHOCYTES (AUTO) 2.8 10^3/uL (0.5-4.7); ABSOLUTE MONOCYTES (AUTO) 0.4 10^3/uL (0.1-1.4); ABSOLUTE NEUT (AUTO) 5.2 10^3/uL (1.7-8.2); BASOPHILS % (AUTO) 0.8 % (0-2); EOSINOPHILS % (AUTO) 0.6 % (0-6); HEMATOCRIT 47.9 % (36.0-47.0); HEMOGLOBIN 16.1 g/dL (12.0-15.5); LYMPHOCYTES % (AUTO) 32.4 % (13-45); MEAN CORPUSCULAR HEMOGLOBIN 31.6 pg (27.0-33.4); MEAN CORPUSCULAR HGB CONC 33.7 g/dL (32.0-36.0); MEAN CORPUSCULAR VOLUME 94 fl (80-97); MONOCYTES % (AUTO) 5.3 % (3-13); PLATELET COUNT 210 10^3/uL (150-450); RED BLOOD COUNT 5.11 10^6/uL (3.72-5.28); RED CELL DISTRIBUTION WIDTH 13.8 % (11.5-14.0); SEGMENTED NEUTROPHILS % (AUTO) 60.9 % (42-78); TOTAL CELLS COUNTED % (AUTO) 100 %; WHITE BLOOD COUNT 8.5 10^3/uL (4.0-10.5)
[2020-08-02] MEDS ORDERED: LORAZEPAM INJ 2 MG/1 ML VIAL IV ONE ×2 (18:21→18:25)
[2020-08-02 18:28] LABS: ALBUMIN 4.4 g/dL (3.5-5.0); ALKALINE PHOSPHATASE 100 U/L (38-126); ANION GAP 9 (5-19); ASPARTATE AMINO TRANSFERASE 61 U/L (14-36); BILIRUBIN,DIRECT 0.1 mg/dL (0.0-0.4); BILIRUBIN,TOTAL 0.5 mg/dL (0.2-1.3); BLOOD UREA NITROGEN 23 mg/dL (7-20); CALCIUM 9.5 mg/dL (8.4-10.2); CARBON DIOXIDE 29 mmol/L (22-30); CHLORIDE 103 mmol/L (98-107); GLUCOSE 145 mg/dL (75-110); TOTAL PROTEIN 6.9 g/dL (6.3-8.2)
--- NOTE | 2020-08-02 18:28 | RADIOLOGY REPORT (SQ) ---
EXAM DESCRIPTION: CHEST SINGLE VIEW IMAGES COMPLETED DATE/TIME: 08/02/2020 6:13 pm REASON FOR STUDY: sob COMPARISON: 05/09/2020 EXAM PARAMETERS: NUMBER OF VIEWS: One view. TECHNIQUE: Single frontal radiographic view of the chest acquired. RADIATION DOSE: NA LIMITATIONS: None. FINDINGS: LUNGS AND PLEURA: The right lung is clear. Slight opacification at the left lung base ma y be on the basis of infiltrate. The patient has a history of COVID_19 disease. No pneumothorax or pleural effusion. MEDIASTINUM AND HILAR STRUCTURES: No masses. Contour normal. HEART AND VASCULAR STRUCTURES: Heart normal in size. Normal vasculature. BONES: No acute findings. HARDWARE: None in the chest. OTHER: No other significant finding. IMPRESSION: 1. Slight opacification at the left lung base may be on the basis of infiltrate. Patie nt has a known history of COVID_19 disease. TECHNICAL DOCUMENTATION: JOB ID: [id number] 2010 [employer]- All Rights Reserved Reading location - IP/workstation name: [email or web address]
--- NOTE | 2020-08-02 18:59 | ER Document Report ---
ED Respiratory Problem - General Chief Complaint: Breathing Difficulty Stated Complaint: DIFFICULTY BREATHING Time Seen by Provider: 08/02/20 18:25 TRAVEL OUTSIDE OF THE [place] IN LAST 30 DAYS: No - HPI Patient complains to provider of: Short of breath Onset: Just prior to arrival Duration: Continuous Quality of pain: No pain Severity: Severe Short of Breath: Severe At home treatment: Bronchodilators EMS treatments: Bronchodilators, Epinephrine, Solumedrol Notes: Patient is a 59-year-old female with a past medical history of laryngospasms who presents with stridor. Patient states symptoms occurred before she called EMS. She has a history of this and was recently treated at a different hospital for it. She has never been intubated. Patient states she tried 0.5 mg of Ativan at home and her breathing treatments without improvement. This arrived and patient was stridorous. They gave her 125 mg of Solu-Medrol, epi nebulizers x2, albuterol. On arrival, patient is stridorous. Her O2 saturations and vitals are within normal limits. Patient is able to speak in sentences. She appears fatigued. - Related Data Allergies/Adverse Reactions: caffeine [Caffeine] Allergy (Severe, Verified 08/02/20 17:46) sets off autoimmune response ethyl chloride [Ethyl Chloride] Allergy (Severe, Verified 08/02/20 17:46) Anaphylaxis iodine [Iodine] Allergy (Severe, Verified 08/02/20 17:46) Anaphylaxis lidocaine HCl [From Xylocaine] Allergy (Severe, Verified 08/02/20 17:46) Anaphylaxis morphine [Morphine] Allergy (Severe, Verified 08/02/20 17:46) swelling, AMS pentazocine lactate [From Talwin] Allergy (Severe, Verified 08/02/20 17:46) Hallucinations procaine HCl [From Novocain] Allergy (Severe, Verified 08/02/20 17:46) Anaphylaxis carisoprodol [From Soma] Allergy (Intermediate, Verified 08/02/20 17:46) muscle problems Iodinated Contrast Media [IV Dye, Iodine Containing] Allergy (Intermediate, Verified 08/02/20 17:46) Anaphylaxis pentazocine [Pentazocine] Allergy (Intermediate, Verified 08/02/20 17:46) Hallucinations adhesive tape [Adhesive Tape] Allergy (Mild, Verified 08/02/20 17:46) sores, skin peeled off paraben [Paraben] Allergy (Mild, Verified 08/02/20 17:46) rash ampicillin [Ampicillin] Allergy (Unknown, Verified 08/02/20 17:46) convulsions atropine [Atropine] Allergy (Unknown, Verified 08/02/20 17:46) unknown chicken derived [Chicken Derived] Allergy (Unknown, Verified 08/02/20 17:46) unknown pineapple [Pineapple] Allergy (Unknown, Verified 08/02/20 17:46) unknown wheat [Wheat] Allergy (Unknown, Verified 08/02/20 17:46) unknown acetic acid [Acetic Acid] Adverse Reaction (Mild, Verified 08/02/20 17:46) flu like symptoms hops Allergy (Severe, Uncoded 08/02/20 17:46) severe asthma perfume Ht 52 Allergy (Severe, Uncoded 08/02/20 17:46) Anaphylaxis acrylic Allergy (Intermediate, Uncoded 08/02/20 17:46) swelling fluoride Allergy (Unknown, Uncoded 08/02/20 17:46) unknown local anesthetics Allergy (Uncoded 08/02/20 17:46) Past Medical History - General Information source: Patient - Social History Smoking Status: Never Smoker Frequency of alcohol use: None Drug Abuse: None Family History: Reviewed & Not Pertinent - Past Medical History Cardiac Medical History: Denies: Hx Coronary Artery Disease, Hx Heart Attack, Hx Hypertension Pulmonary Medical History: Reports: Hx Asthma Denies: Hx Bronchitis, Hx COPD, Hx Pneumonia Neurological Medical History: Denies: Hx Cerebrovascular Accident, Hx Seizures Endocrine Medical History: Reports: Hx Hypothyroidism Renal/ Medical History: Denies: Hx Peritoneal Dialysis Malignancy Medical History: Reports: Hx Ovarian Cancer GI Medical History: Reports: Hx Gastroesophageal Reflux Disease Musculoskeletal Medical History: Reports Hx Arthritis, Reports Hx Fibromyalgia Psychiatric Medical History: Reports: Hx Anxiety, Hx Depression Past Surgical History: Reports: Hx Appendectomy, Hx Bowel Surgery, Hx Cholecystectomy, Hx Hysterectomy, Hx Pancreatic Surgery - Multiple ERCP procedure with stent placement and removal, last surgery was, Other - Surgery to remove adhesions - Immunizations Hx Diphtheria, Pertussis, Tetanus Vaccination: No Review of Systems - Review of Systems -: Yes ROS unobtainable due to patient's medical condition Respiratory: Short of breath, Stridor Physical Exam - Vital signs Vitals: Pulse Ox 99 08/02/20 17:36 - Notes Notes: VITAL SIGNS: Within normal limits. GENERAL: Acute distress HEAD: Normal with no signs of head trauma. EYES: Conjunctiva normal, no discharge. EARS: Hearing grossly intact. NOSE: Normal. NECK: No JVD. CHEST: Wheezing heard likely transmitted from upper airway stridor CARDIAC: Regular rate and rhythm. S1 and S2, without murmurs, gallops, or rubs. VASCULAR: No Edema. ABDOMEN: Normal and soft with no tenderness GENITOURINARY: Normal, No tenderness LYMPATHTIC: No lymphadenopathy noted. MUSCULOSKELETAL: Good range of motion of all major joints. NEUROLOGICAL: Alert and oriented x 3. No focal sensory or strength deficits. Speech normal. Follows commands appropriately. PSYCHIATRIC: Unable to assess SKIN: Normal appearance with no rashes or lesions. Course - Re-evaluation Re-evalutation: 08/02/20 20:35 Patient was stridorous on arrival. However, her vital signs were normal. She was maintaining her airway and speaking in sentences. I ordered a DuoNeb which patient states helped. Ordered BiPAP next. Patient has been doing well on the BiPAP. When I take it off, she is able to speak in full sentences. Patient was given Ativan because she stated that it always helps. There is a small possible pneumonia on her x-ray. She has numerous allergies to medications including ampicillin. We will treat with Levaquin. I discussed with the ICU estate planner who will evaluate the patient. Patient states she has not been diagnosed with COVID-19. Chief Optometry Service felt that patient was appropriate for the floor. I will discuss with the hospitalist. 08/03/20 02:42 - Vital Signs Vital signs: Temp Pulse Resp BP Pulse Ox 98.1 F 94 16 131/67 H 99 08/02/20 17:46 08/02/20 17:46 08/03/20 02:01 08/03/20 02:01 08/03/20 02:01 - Laboratory Result Diagrams: 08/02/20 17:46 08/02/20 17:46 Laboratory results interpreted by me: 08/02/20 08/02/20 08/02/20 17:46 17:46 20:25 Hgb 16.1 H Hct 47.9 H ABG pO2 ABG HCO3 ABG Total CO2 BUN 23 H Glucose 145 H Lactic Acid 4.1 H AST 61 H ALT 82 H Urine Protein Urine Ascorbic Acid 08/02/20 08/02/20 20:25 23:10 Hgb Hct ABG pO2 100.2 H ABG HCO3 24.1 H ABG Total CO2 25.3 H BUN Glucose Lactic Acid AST ALT Urine Protein 100 H Urine Ascorbic Acid 40 H - EKG Interpretation by Me EKG shows normal: Sinus rhythm Rate: Tachycardia When compared to previous EKG there are: No significant change Additional EKG results interpreted by me: 08/02/20 20:40 EKG interpreted by me. Sinus tachycardia at a rate of 93. QTc 488. No acute ST changes. No significant change from previous EKG. Critical Care Note - Critical Care Note Total time excluding time spent on procedures (mins): 30 Comments: Upon my evaluation, this patient had a high probability of life-threatening deterioration due to the stridor and laryngospasm which required my direct attention and personal management. I have personally provided 30 minutes of c ritical care time exclusive of time spent on procedures including review of laboratory data, radiology results, discussion with consultants and personal monitoring of the patient. Discharge - Discharge Clinical Impression: Laryngeal stridor Pneumonia Qualifiers: Pneumonia type: due to unspecified organism Laterality: left Lung location: lower lobe of lung Qualified Code(s): J18.9 - Pneumonia, unspecified organism Condition: Serious Disposition: ADMITTED INPATIENT Admitting Provider: Jagdish (Hospitalist) Unit Admitted: [facility]
[2020-08-02] MEDS ORDERED: LEVOFLOXACIN 750 MG/D5W RTU 750 MG/150 ML RTUPB IV ONE (20:27)
[2020-08-02 20:37] LABS: ARTERIAL BLOOD BASE EXCESS -0.1 mmol/L; ARTERIAL BLOOD H2CO3 1.16 mmol/L (1.05-1.35); ARTERIAL BLOOD HCO3 24.1 mmol/L (20-24); ARTERIAL BLOOD O2 SATURATION 97.7 % (94-98); ARTERIAL BLOOD PCO2 38.4 mmHg (35-45); ARTERIAL BLOOD PH 7.42 (7.35-7.45); ARTERIAL BLOOD PO2 100.2 mmHg (80-100); ARTERIAL BLOOD TOTAL CO2 25.3 mmol/L (21-25)
[2020-08-02 20:40] LABS: ARTERIAL BLOOD FIO2 25%
[2020-08-02 23:37] LABS: APPEARANCE,URINE SLIGHTLY-CLOUDY; BILIRUBIN,URINE NEGATIVE (NEGATIVE); COLOR,URINE YELLOW; GLUCOSE, URINE NEGATIVE (NEGATIVE); KETONES,URINE NEGATIVE (NEGATIVE); LEUKOCYTE ESTERASE,URINE NEGATIVE (NEGATIVE); NITRITE,URINE NEGATIVE (NEGATIVE); PROTEIN,URINE 100 mg/dL (NEGATIVE); URINE SPECIFIC GRAVITY 1.026; UROBILINOGEN,URINE NEGATIVE mg/dL (<2.0)
--- NOTE | 2020-08-03 00:48 | Progress Note ---
Provider Note Provider Note: 59 y/o female came in via EMS with c/o difficulty of breathing and history of laryngospasms. Patient evaluated by ICU wire basket maker for further management and intervention. Patient is awake, alert and folllows commands, on BIPAP with o2 saturation 100%, with clear bilateral upper lobes breath sounds and diminished BLL, no stridors noted at this time. She received epi-nebs, duonebs and lorazepam via route/ambulance and upon arrival to ED. Patient is hemodynamically stable, O2 sat is 100% and denies any SOB or difficulty of breathing and tolerating BIPAP at this time.Communicated to the ER staffs, to continue monitor patient and does not need to be in ICU at this time.
[2020-08-03] MEDS ORDERED: NORMAL SALINE 1000 ML 1,000 ML IV ONE (01:42)
[2020-08-03] MEDS ORDERED: LEVALBUTEROL HCL NEB 1.25 MG/3 ML AMPUL NEB PRN ×2 (02:17→02:51)
[2020-08-03] MEDS ORDERED: BENZONATATE 100 MG CAPSULE PO PRN (02:47)
[2020-08-03] MEDS ORDERED: PYRIDOXINE PO PRN (02:59)
[2020-08-03] MEDS ORDERED: MELATONIN PO PRN (02:59)
[2020-08-03] MEDS ORDERED: LEVOTHYROXINE SODIUM 0.088 MG TABLET PO SCH ×3 (03:00→06:00)
--- NOTE | 2020-08-03 03:33 | PDOC H&P ---
History of Present Illness Admission Date/PCP: 08/02/20 23:48 JOSI MAYES Patient complains of: Stridor History of Present Illness: CAROLINA MONTEZ is a 59 year old female with a complex past medical history. She states that she has been having some difficulty breathing over the last several days. It became worse today. EMS was called and found her to have kenisha stridor. She was evaluated in the emergency department both by the emergency department physician and the item repair manager carton stenciler. She did receive racemic epinephrine and this resolved the stridor but she did require ongoing BiPAP therapy. She is on oxygen 2 L nasal cannula at home. She has a very complex history including asthma, lupus, Raynauds, hypothyroidism, cryoglobulinemia, vasculitis unspecified, vocal cord disease, fibromyalgia, sicca syndrome, nonfamilial hypogammaglobulinemia, gastroesophageal reflux disease, costochondritis and chronic pain. She has had stridor before. She also reports recent diagnosis of neuromuscular disease. Reportedly diagnosed a Guillain-Grant type illness. She was in [facility] in May with subsequent nursing home facility stay. She is currently on home health. Laboratory studies were unremarkable except a lactic acid of 4.1. AST and ALT were minimally elevated. She is maintaining oxygen saturation on BiPAP and will be weaning back to her 2 L nasal cannula as tolerated. She will be admitted to [facility] for close monitoring. She will be on telemetry. Majority of her home medications have been continued. Because of her multiple allergies she will be given levofloxacin. We need to monitor due to its QT prolonging properties. She already has a borderline QT C possibly due to her current medication regimen. The chest x-ray shows pneumonia but she has a normal white blood cell count and is afebrile. Consider stopping antibiotics if no additional findings to support pneumonia are discovered. Unfortunately she is on multiple immunosuppressant medications making her high risk. Past Medical History Past Medical History: Lupus, fibromyalgia, sicca syndrome, Blayne, cryoglobulinemia Cardiac Medical History: Denies: Coronary Artery Disease, Myocardial Infarction, Hypertension Pulmonary Medical History: Reports: Asthma Denies: Bronchitis, Chronic Obstructive Pulmonary Disease (COPD), Pneumonia Neurological Medical History: Reports: Other - Recently diagnosed neuromuscular illness. [place] like illness Denies: Seizures Endocrine Medical History: Reports: Hypothyroidism Malignancy Medical History: Reports: Ovarian Cancer GI Medical History: Reports: Gastroesophageal Reflux Disease Musculoskeltal Medical History: Reports: Arthritis, Fibromyalgia Psychiatric Medical History: Reports: Depression Hematology: Denies: Anemia Past Surgical History Past Surgical History: Reports: Appendectomy, Cholecystectomy, Hysterectomy, Other - Surgery to remove adhesions Social History Information Source: Patient, [facility] Records Lives with: Spouse/Significant other Smoking Status: Never Smoker Electronic Cigarette use?: No Frequency of Alcohol Use: None Hx Recreational Drug Use: No Hx Prescription Drug Abuse: No - Advance Directive Resuscitation Status: Full Code Surrogate healthcare decision maker:: Family History Family History: Reviewed & Not Pertinent Parental Family History Reviewed: Yes Children Family History Reviewed: NA Sibling(s) Family History Reviewed.: NA Medication/Allergy Home Medications: Albuterol Sulfate [Ventolin 0.083% Neb 2.5 mg/3 ml Ampul] 1 vial NEB Q4 PRN 08/02/20 Arformoterol Tartrate [Brovana Inhalation Solution 15 mcg/2 mL] 1 applic IH BID PRN 08/02/20 Azathioprine 100 mg PO DAILY 08/02/20 Baclofen [Baclofen 20 Mg Tablet] 20 mg PO TID 08/02/20 Benzonatate [Tessalon Perles 100 mg Capsule] 100 mg PO TIDP PRN 08/02/20 Biotin 20,000 mcg PO DAILY 08/02/20 Budesonide [Pulmicort] 0.5 mg IH BID 08/02/20 Calcium Carbonate 1,500 mg PO DAILY 08/02/20 Cranberry Fruit Extract [Cranberry 200 mg Capsule] 200 mg PO DAILY 08/02/20 Gabapentin 800 mg PO Q6HP PRN 08/02/20 Hydromorphone HCl [Dilaudid 2 mg Tablet] 2 mg PO Q6HP PRN 08/02/20 Hydroxychloroquine Sulfate [Plaquenil 200 mg Tablet] 200 mg PO DAILY 08/02/20 Hydroxyzine Pamoate [Vistaril] 25 mg PO TIDP PRN 08/02/20 Levothyroxine Sodium 0.5 tab PO ASDIR 08/02/20 Levothyroxine Sodium 88 mcg PO ASDIR 08/02/20 Liothyronine Sodium [Cytomel] 5 mcg PO DAILY 08/02/20 Melatonin/Pyridoxine [Melatonin 5 mg Tablet] 1 each PO QHS PRN 08/02/20 Metoclopramide HCl 5 mg PO Q6HP PRN 08/02/20 Nifedipine [Nifedipine ER] 30 mg PO DAILY 08/02/20 Nitrofurantoin Monohyd/M-Cryst [Macrobid 100 mg Capsule] 100 mg PO DAILY 08/02/20 Nystatin [Mycostatin Cream] 1 applic TP BID 08/02/20 Ondansetron HCl [Zofran 8 mg Tablet] 8 mg PO Q6HP PRN 08/02/20 Prednisone [Deltasone 5 mg Tablet] 5 mg PO DAILY 08/02/20 Promethazine HCl [Phenergan 25 mg Tablet] 25 mg PO BIDP PRN 08/02/20 Allergies/Adverse Reactions: caffeine [Caffeine] Allergy (Severe, Verified 08/02/20 17:46) sets off autoimmune response ethyl chloride [Ethyl Chloride] Allergy (Severe, Verified 08/02/20 17:46) Anaphylaxis iodine [Iodine] Allergy (Severe, Verified 08/02/20 17:46) Anaphylaxis lidocaine HCl [From Xylocaine] Allergy (Severe, Verified 08/02/20 17:46) Anaphylaxis morphine [Morphine] Allergy (Severe, Verified 08/02/20 17:46) swelling, AMS pentazocine lactate [From Talwin] Allergy (Severe, Verified 08/02/20 17:46) Hallucinations procaine HCl [From Novocain] Allergy (Severe, Verified 08/02/20 17:46) Anaphylaxis carisoprodol [From Soma] Allergy (Intermediate, Verified 08/02/20 17:46) muscle problems Iodinated Contrast Media [IV Dye, Iodine Containing] Allergy (Intermediate, Verified 08/02/20 17:46) Anaphylaxis pentazocine [Pentazocine] Allergy (Intermediate, Verified 08/02/20 17:46) Hallucinations adhesive tape [Adhesive Tape] Allergy (Mild, Verified 08/02/20 17:46) sores, skin peeled off paraben [Paraben] Allergy (Mild, Verified 08/02/20 17:46) rash ampicillin [Ampicillin] Allergy (Unknown, Verified 08/02/20 17:46) convulsions atropine [Atropine] Allergy (Unknown, Verified 08/02/20 17:46) unknown chicken derived [Chicken Derived] Allergy (Unknown, Verified 08/02/20 17:46) unknown pineapple [Pineapple] Allergy (Unknown, Verified 08/02/20 17:46) unknown wheat [Wheat] Allergy (Unknown, Verified 08/02/20 17:46) unknown acetic acid [Acetic Acid] Adverse Reaction (Mild, Verified 08/02/20 17:46) flu like symptoms hops Allergy (Severe, Uncoded 08/02/20 17:46) severe asthma perfume Ht 52 Allergy (Severe, Uncoded 08/02/20 17:46) Anaphylaxis acrylic Allergy (Intermediate, Uncoded 08/02/20 17:46) swelling fluoride Allergy (Unknown, Uncoded 08/02/20 17:46) unknown local anesthetics Allergy (Uncoded 08/02/20 17:46) Review of Systems All systems: reviewed and no additional remarkable complaints except as stated Constitutional: PRESENT: weakness Cardiovascular: PRESENT: other - Left rib pain Respiratory: PRESENT: dyspnea, other - Stridor Gastrointestinal: PRESENT: heartburn Musculoskeletal: PRESENT: muscle weakness Neurological: PRESENT: abnormal gait - Profound weakness, weakness Hematologic/Lymphatic: PRESENT: easy bruising Physical Exam Vital Signs: Temp Pulse Resp BP Pulse Ox 98.1 F 94 13 133/65 H 100 08/02/20 17:46 08/02/20 17:46 08/03/20 02:31 08/03/20 02:31 08/03/20 02:31 Intake & Output 08/01/20 08/02/20 08/03/20 06:59 06:59 06:59 Intake Total 150 Balance 150 Weight 72.575 kg General appearance: PRESENT: cooperative, well-developed, other - Well-developed 59-year-old female in moderate distress currently on BiPAP Head exam: PRESENT: atraumatic, normocephalic Eye exam: PRESENT: conjunctiva pink, EOMI. ABSENT: scleral icterus Ear exam: PRESENT: normal external ear exam. ABSENT: bleeding, drainage Mouth exam: PRESENT: dry mucosa, tongue midline Teeth exam: PRESENT: other - BiPAP mask in place Neck exam: ABSENT: carotid bruit, JVD, lymphadenopathy Respiratory exam: PRESENT: clear to auscultation angel, symmetrical, unlabored. ABSENT: accessory muscle use, rales, rhonchi, stridor, tachypnea, wheezes Cardiovascular exam: PRESENT: RRR, +S1, +S2. ABSENT: bradycardia, diastolic murmur, irregular rhythm, systolic murmur, tachycardia GI/Abdominal exam: PRESENT: normal bowel sounds, soft, other - Abdominal binder in place. ABSENT: distended, guarding, tenderness Rectal exam: PRESENT: deferred Gentrourinary exam: ABSENT: indwelling catheter Extremities exam: ABSENT: pedal edema Musculoskeletal exam: ABSENT: ambulatory Neurological exam: PRESENT: alert, awake, oriented to person, oriented to place, oriented to time, oriented to situation, CN II-XII grossly intact, motor sensory deficit - [employer] strength bilaterally 4/5. 2/5 plantar and dorsiflexion bilaterally. Psychiatric exam: PRESENT: flat affect. ABSENT: agitated, anxious Focused psych exam: ABSENT: delusional, paranoid, restlessness Skin exam: PRESENT: dry, warm, other - Occasional bruising. Patient cannot recall etiology.. ABSENT: rash Results Laboratory Results: 08/02/20 17:46 08/02/20 17:46 08/02/20 08/02/20 08/02/20 17:46 17:46 19:30 WBC 8.5 RBC 5.11 Hgb 16.1 H Hct 47.9 H MCV 94 MCH 31.6 MCHC 33.7 RDW 13.8 Plt Count 210 Seg Neutrophils % 60.9 Carbonic Acid Cancelled HCO3/H2CO3 Ratio Cancelled ABG pH Cancelled ABG pCO2 Cancelled ABG pO2 Cancelled ABG HCO3 Cancelled ABG O2 Saturation Cancelled ABG Base Excess Cancelled FiO2 Cancelled Sodium 140.6 Potassium 4.0 Chloride 103 Carbon Dioxide 29 Anion Gap 9 BUN 23 H Creatinine 0.60 Est GFR ( Amer) > 60 Glucose 145 H Lactic Acid Calcium 9.5 Total Bilirubin 0.5 AST 61 H Alkaline Phosphatase 100 Total Protein 6.9 Albumin 4.4 Urine Color Urine Appearance Urine pH Ur Specific Bryant Urine Protein Urine Glucose (UA) Urine Ketones Urine Blood Urine Nitrite Ur Leukocyte Esterase Urine WBC (Auto) Urine RBC (Auto) 08/02/20 08/02/20 08/02/20 20:25 20:25 23:10 WBC RBC Hgb Hct MCV MCH MCHC RDW Plt Count Seg Neutrophils % Carbonic Acid 1.16 HCO3/H2CO3 Ratio 20:1 ABG pH 7.42 ABG pCO2 38.4 ABG pO2 100.2 H ABG HCO3 24.1 H ABG O2 Saturation 97.7 ABG Base Excess -0.1 FiO2 25% Sodium Potassium Chloride Carbon Dioxide Anion Gap BUN Creatinine Est GFR ( Amer) Glucose Lactic Acid 4.1 H Calcium Total Bilirubin AST Alkaline Phosphatase Total Protein Albumin Urine Color YELLOW Urine Appearance SLIGHTLY-CLOUDY Urine pH 5.0 Ur Specific Bryant 1.026 Urine Protein 100 H Urine Glucose (UA) NEGATIVE Urine Ketones NEGATIVE Urine Blood NEGATIVE Urine Nitrite NEGATIVE Ur Leukocyte Esterase NEGATIVE Urine WBC (Auto) 2 Urine RBC (Auto) 2 08/02/20 17:46 Troponin I < 0.012 Impressions: Chest X-Ray 08/02/20 18:03 IMPRESSION: 1. Slight opacification at the left lung base may be on the basis of infiltrate. Patient has a known history of COVID_19 disease. Assessment and Plan - Diagnosis (1) Laryngeal stridor Is this a current diagnosis for this admission?: Yes Plan: Patient with acute laryngeal stridor that responded to racemic epinephrine. We will wean from BiPAP. Patient reports baseline oxygen is 2 L/min by nasal cannula. Temporarily increased prednisone dose as well. (2) Acute asthma exacerbation Qualifiers: Asthma severity: unspecified severity Asthma persistence: unspecified Qualified Code(s): J45.901 - Unspecified asthma with (acute) exacerbation Is this a current diagnosis for this admission?: Yes Plan: The patient has no wheezes at this time. It is unclear if the laryngospasm was related to the asthma or not. As we do not have Brovana I will continue the patient's budesonide nebulizer every 12 hours and use scheduled Xopenex every 6 hours. Xopenex will be available every 3 hours if needed. We will continue her prednisone. She will be at increased dose of 30 mg temporarily. The goal is to return her to her 5 mg daily based dose. (3) Acute and chronic respiratory failure with hypoxia Is this a current diagnosis for this admission?: Yes Plan: The patient required increased oxygen support with BiPAP. The acute failure was due to her laryngospasm. Wean back to 2 L nasal cannula as tolerated. (4) Pneumonia Qualifiers: Pneumonia type: due to unspecified organism Laterality: left Lung location: lower lobe of lung Qualified Code(s): J18.9 - Pneumonia, unspecified organism Is this a current diagnosis for this admission?: Yes Plan: Chest x-ray reports a left base infiltrate. There is some haziness on the right as well. Because of her multiple allergies the patient will be given levofloxacin. She does not have a temperature and does not have an elevated white blood cell count but she is on immunosuppressant therapy. She is certainly at risk due to her immunosuppression. She reports a recent diagnosis of neuromuscular disease which could compromise her swallow. Will monitor closely and continue antibiotics for now. We will also need to monitor QT interval as her QTC is borderline and levofloxacin can interact with other medications to prolong the QT. (5) Hypothyroidism Qualifiers: Hypothyroidism type: acquired Qualified Code(s): E03.9 - Hypothyroidism, unspecified Is this a current diagnosis for this admission?: Yes Plan: Per old records the patient has had a thyroidectomy. Continue Cytomel and levothyroxine dose is unchanged. The patient reports that she requires brand name Synthroid. (6) Fibromyalgia Is this a current diagnosis for this admission?: Yes Plan: Continue current medication regimen including gabapentin. The patient is also on Dilaudid. Must be mindful of her respiratory status when utilizing strong narcotic pain medications. (7) Weakness Is this a current diagnosis for this admission?: Yes Plan: The patient was hospitalized at [facility] in May with subsequent stay at rehab. She is continuing home health with physical therapy. She states that she was diagnosed with a neuromuscular type disorder. She did have an EMG study approximately 2 weeks ago. Evidently it is similar to [place]. We will try and get old records but this will be difficult on a weekend. Continue current medication regimen. (8) Neuromuscular disease Is this a current diagnosis for this admission?: Yes Plan: As above. We will try and obtain additional documentation from her recent EMG studies. I have ordered physical therapy as well. She must have some mobility as she is home with home health. (9) Systemic lupus erythematosus Qualifiers: Systemic lupus erythematosus type: unspecified Systemic lupus erythematosus organ involvement: unspecified Qualified Code(s): M32.9 - Systemic lupus erythematosus, unspecified Is this a current diagnosis for this admission?: Yes Plan: Continue azathioprine and prednisone. Increase prednisone dose due to laryngospasm. - Time Time Spent with patient: 35 or more minutes Medications reviewed and adjusted accordingly: Yes Anticipated Discharge Disposition: Home with Home Health Anticipated Discharge Timeframe: Unknown - Inpatient Certification Based on my medical assessment, after consideration of the patient's comorbidities, presenting symptoms, or acuity I expect that the services needed warrant INPATIENT care.: Yes I certify that my determination is in accordance with my understanding of Medicare's requirements for reasonable and necessary INPATIENT services [42 CFR 412.3e].: Yes Medical Necessity: Significant Comorbidiites Make Outpatient Treatment Too Risky, Need Close Monitoring Due to Risk of Patient Decompensation, Need For Continuous Telemetry Monitoring, Need for Nebulizer Therapy and Monitoring of Response, Need for Pain Control, Need for IV Antibiotics Post Hospital Care: D/C or Transfer Summary
--- NOTE | 2020-08-03 03:40 | ADVANCED CARE ---
- Diagnosis (1) Laryngeal stridor Diagnosis Current: Yes (2) Acute asthma exacerbation Diagnosis Current: Yes (3) Acute and chronic respiratory failure with hypoxia Diagnosis Current: Yes (4) Pneumonia Diagnosis Current: Yes (5) Hypothyroidism Diagnosis Current: Yes (6) Fibromyalgia Diagnosis Current: Yes (7) Weakness Diagnosis Current: Yes (8) Neuromuscular disease Diagnosis Current: Yes (9) Systemic lupus erythematosus Diagnosis Current: Yes (10) Hypertension Diagnosis Current: Yes (11) Lactic acidemia Diagnosis Current: Yes Attendance: Discussion was held at the bedside with the patient Resuscitation Status: Full Code Discussion: Reviewed the patient's wishes regarding CODE STATUS. The patient has been hospitalized multiple times this year alone. Her current status is complex due to her medical history as well as a potential neuromuscular disease recently diagnosed. Considering all of that she still wishes to be a full code. She is currently on BiPAP but should be able to wean back to her 2 L nasal cannula. Co ntinue discussion should be considered taking into account her complex comorbidities. Care Planning Goals: Based on recovery, consider reevaluating long-term goals. Time Spent: 20
[2020-08-03] MEDS: HYDROMORPHONE HCL 2 MG TABLET PO PRN ×3 (04:05→21:08)
[2020-08-03] MEDS: RINGERS SOLUTION,LACTATED 1,000 ML IV PRN ×2 (04:05→18:10)
[2020-08-03] MEDS ORDERED: BACLOFEN 20 MG TABLET ONE (05:34)
[2020-08-03] MEDS: BACLOFEN 20 MG TABLET PO SCH ×3 (05:47→21:08)
[2020-08-03] MEDS: GABAPENTIN 400 MG CAPSULE PO SCH ×3 (05:47→17:28)
[2020-08-03] MEDS: HEPARIN SOD (PORCINE) 5,000 UNIT/ML 1 ML VIAL SUBCUT SCH ×3 (05:49→21:11)
[2020-08-03 07:11] LABS: ALBUMIN 3.1 g/dL (3.5-5.0); ALKALINE PHOSPHATASE 44 U/L (38-126); ANION GAP 9 (5-19); ASPARTATE AMINO TRANSFERASE 44 U/L (14-36); BILIRUBIN,DIRECT 0.4 mg/dL (0.0-0.4); BILIRUBIN,TOTAL 0.6 mg/dL (0.2-1.3); BLOOD UREA NITROGEN 18 mg/dL (7-20); CALCIUM 7.3 mg/dL (8.4-10.2); CARBON DIOXIDE 21 mmol/L (22-30); CHLORIDE 112 mmol/L (98-107); GLUCOSE 118 mg/dL (75-110); POTASSIUM 3.5 mmol/L (3.6-5.0); TOTAL PROTEIN 5.4 g/dL (6.3-8.2)
[2020-08-03] MEDS: BUDESONIDE NEB 0.5 MG/2 ML AMPUL NEB SCH ×2 (07:52→20:52)
[2020-08-03] MEDS: LEVALBUTEROL HCL NEB 1.25 MG/3 ML AMPUL NEB SCH ×3 (07:52→20:52)
[2020-08-03] MEDS ORDERED: CALCIUM CARBONATE 600 MG TABLET PO SCH (10:00)
[2020-08-03] MEDS ORDERED: BIOTIN 20000 MCG PO SCH (10:00)
[2020-08-03] MEDS ORDERED: CRANBERRY FRUIT EXTRACT 200 MG PO SCH (10:00)
[2020-08-03] MEDS: PREDNISONE 20 MG TABLET PO SCH (13:44)
[2020-08-03] MEDS: HYDROXYCHLOROQUINE SULFATE 200 MG TABLET PO SCH (13:44)
[2020-08-03] MEDS: CALCIUM CARBONATE 500 MG TAB.CHEW PO SCH (13:46)
[2020-08-03] MEDS: AZATHIOPRINE 50 MG TABLET PO SCH (13:46)
[2020-08-03] MEDS: NIFEDIPINE 30 MG TAB.ER.24 PO SCH (13:46)
[2020-08-03] MEDS: GUAIFENESIN 600 MG TABLET.SA PO SCH ×2 (13:47→21:08)
[2020-08-03] MEDS: POTASSI CL 20 MEQ/50 ML RIDER 20 MEQ/50 ML RTUPB IV SCH ×2 (13:48→15:28)
[2020-08-03] MEDS: ACETAMINOPHEN 325 MG TABLET PO PRN ×2 (14:20→23:13)
--- NOTE | 2020-08-03 15:18 | Progress Note ---
Provider Note Provider Note: Patient seen and evaluated by me today. Patient seemed comfortable on 3 L. Off the BiPAP. Will try racemic epinephrine if her respiratory distress should recur. Evaluated by speech pathologist who recommends swallow study tomorrow. In the meantime she recommends pured diet with crushed meds in applesauce. Co ntinue plan as per prior provider.
[2020-08-03] MEDS: HYDROXYZINE PAMOATE 25 MG CAPSULE PO PRN (17:28)
[2020-08-03] MEDS: MELATONIN 5 MG TABLET PO PRN (21:08)
[2020-08-03] MEDS: LEVOFLOXACIN 750 MG/D5W RTU 750 MG/150 ML RTUPB IV SCH (21:17)
[2020-08-04] MEDS: GABAPENTIN 400 MG CAPSULE PO SCH ×5 (00:33→23:52)
[2020-08-04] MEDS: LEVALBUTEROL HCL NEB 1.25 MG/3 ML AMPUL NEB SCH ×4 (02:46→20:42)
[2020-08-04] MEDS: HEPARIN SOD (PORCINE) 5,000 UNIT/ML 1 ML VIAL SUBCUT SCH ×3 (05:30→21:21)
[2020-08-04] MEDS: BACLOFEN 20 MG TABLET PO SCH ×3 (05:32→21:25)
[2020-08-04] MEDS: HYDROMORPHONE HCL 2 MG TABLET PO PRN ×3 (05:34→21:24)
[2020-08-04] MEDS: HYDROXYZINE PAMOATE 25 MG CAPSULE PO PRN ×2 (05:39→21:25)
[2020-08-04] MEDS ORDERED: LEVOTHYROXINE SODIUM 0.088 MG TABLET PO SCH (06:00)
[2020-08-04 06:30] LABS: HEMOGLOBIN 14.8 g/dL (12.0-15.5); MEAN CORPUSCULAR HEMOGLOBIN 31.6 pg (27.0-33.4); MEAN CORPUSCULAR HGB CONC 33.7 g/dL (32.0-36.0); MEAN CORPUSCULAR VOLUME 94 fl (80-97); PLATELET COUNT 190 10^3/uL (150-450); RED BLOOD COUNT 4.69 10^6/uL (3.72-5.28); RED CELL DISTRIBUTION WIDTH 13.4 % (11.5-14.0); WHITE BLOOD COUNT 15.2 10^3/uL (4.0-10.5)
[2020-08-04 06:53] LABS: ANION GAP 8 (5-19); BLOOD UREA NITROGEN 12 mg/dL (7-20); CALCIUM 8.8 mg/dL (8.4-10.2); CARBON DIOXIDE 28 mmol/L (22-30); CHLORIDE 105 mmol/L (98-107); GLUCOSE 110 mg/dL (75-110)
[2020-08-04] MEDS: BUDESONIDE NEB 0.5 MG/2 ML AMPUL NEB SCH ×2 (08:02→20:42)
[2020-08-04] MEDS: AZATHIOPRINE 50 MG TABLET PO SCH (11:47)
[2020-08-04] MEDS: PREDNISONE 20 MG TABLET PO SCH (11:47)
[2020-08-04] MEDS: HYDROXYCHLOROQUINE SULFATE 200 MG TABLET PO SCH (11:47)
[2020-08-04] MEDS: GUAIFENESIN 600 MG TABLET.SA PO SCH ×2 (11:48→21:25)
[2020-08-04] MEDS: NIFEDIPINE 30 MG TAB.ER.24 PO SCH (11:48)
[2020-08-04] MEDS: CALCIUM CARBONATE 500 MG TAB.CHEW PO SCH (11:49)
[2020-08-04] MEDS ORDERED: METOCLOPRAMIDE HCL 10 MG TABLET PO PRN (14:10)
[2020-08-04] MEDS: PROMETHAZINE HCL 25 MG TABLET PO PRN ×2 (14:17→23:28)
[2020-08-04] MEDS: LIOTHYRONINE SODIUM 5 MCG TABLET PO SCH (15:31)
--- NOTE | 2020-08-04 19:10 | PDOC PROGRESS REPORT ---
Subjective Progress Note for:: 08/04/20 Subjective:: Patient feels well today. She is breathing okay. She denies any chest pain fever or chills. Reason For Visit: PNEUMONIA/LARYNGOSPASM/ASTHMA/HYPOTHYROIDIUM Physical Exam Vital Signs: Temp Pulse Resp BP Pulse Ox 97.5 F 69 16 127/71 H 96 08/04/20 11:20 08/04/20 14:31 08/04/20 14:31 08/04/20 11:20 08/04/20 14:31 Intake & Output 08/03/20 08/04/20 08/05/20 06:59 06:59 06:59 Intake Total 1150 1882 2105 Output Total 4150 1350 Balance 1150 -2268 755 Weight 81.7 kg 82.3 kg General appearance: PRESENT: no acute distress, cooperative Neck exam: ABSENT: JVD, tracheal deviation Respiratory exam: PRESENT: symmetrical, unlabored. ABSENT: stridor, tachypnea, wheezes Cardiovascular exam: PRESENT: +S1, +S2. ABSENT: tachycardia Neurological exam: PRESENT: alert, awake, oriented to person, oriented to place, oriented to time Psychiatric exam: ABSENT: agitated, anxious Results Laboratory Results: 08/04/20 06:05 08/04/20 06:05 08/04/20 08/04/20 08/04/20 06:05 06:05 09:00 WBC 15.2 H RBC 4.69 Hgb 14.8 Hct 44.0 MCV 94 MCH 31.6 MCHC 33.7 RDW 13.4 Plt Count 190 Sodium 141.3 Potassium 4.0 Chloride 105 Carbon Dioxide 28 Anion Gap 8 BUN 12 Creatinine 0.45 L Est GFR ( Amer) > 60 Glucose 110 Lactic Acid 4.1 H Calcium 8.8 08/02/20 17:46 Troponin I < 0.012 Impressions: Chest X-Ray 08/02/20 18:03 IMPRESSION: 1. Slight opacification at the left lung base may be on the basis of infiltrate. Patient has a known history of COVID_19 disease. Assessment and Plan - Diagnosis (1) Laryngeal stridor Is this a current diagnosis for this admission?: Yes (2) Acute and chronic respiratory failure with hypoxia Is this a current diagnosis for this admission?: Yes (3) Neuromuscular disease Is this a current diagnosis for this admission?: Yes (4) Weakness Is this a current diagnosis for this admission?: Yes (5) Lactic acidemia Is this a current diagnosis for this admission?: Yes - Plan Summary Summary: Patient does not seem to have any stridor today. We will continue her regular meds. She will be on CPAP tonight. States she uses CPAP at home. We will put on IV fluids. Lactic acid seems to be high again this morning. We will recheck it tomorrow morning. Currently no sign of infection noted. X-ray does not look significantly changed as compared to prior chest x-rays to indicate any pneumonia. Discontinue antibiotics. - Time Time Spent with patient: Less than 15 minutes Anticipated Discharge Disposition: Home, Self Care Anticipated Discharge Timeframe: within 24 hours
[2020-08-04] MEDS: MELATONIN 5 MG TABLET PO PRN (21:25)
[2020-08-04] MEDS: LEVOFLOXACIN 750 MG/D5W RTU 750 MG/150 ML RTUPB IV SCH (21:25)
[2020-08-04] MEDS: NORMAL SALINE 1000 ML 1,000 ML IV PRN (21:33)
[2020-08-05] MEDS: LEVALBUTEROL HCL NEB 1.25 MG/3 ML AMPUL NEB SCH ×3 (02:32→13:35)
--- NOTE | 2020-08-05 02:32 | EKG REPORT ---
SEVERITY:- BORDERLINE ECG - SINUS RHYTHM BORDERLINE PROLONGED QT INTERVAL : Confirmed by: Marcelo Dailey MD 05-Aug-2020 02:31:58
--- NOTE | 2020-08-05 02:32 | EKG REPORT ---
SEVERITY:- NORMAL ECG - SINUS RHYTHM : Confirmed by: Marcelo Dailey MD 05-Aug-2020 02:31:13
[2020-08-05] MEDS: HYDROMORPHONE HCL 2 MG TABLET PO PRN ×2 (03:43→12:12)
[2020-08-05] MEDS: HYDROXYZINE PAMOATE 25 MG CAPSULE PO PRN (05:29)
[2020-08-05] MEDS: GABAPENTIN 400 MG CAPSULE PO SCH ×3 (05:29→17:12)
[2020-08-05] MEDS: HEPARIN SOD (PORCINE) 5,000 UNIT/ML 1 ML VIAL SUBCUT SCH ×2 (05:30→13:59)
[2020-08-05] MEDS: BACLOFEN 20 MG TABLET PO SCH ×2 (05:30→13:56)
[2020-08-05] MEDS ORDERED: LEVOTHYROXINE SODIUM 0.088 MG TABLET PO SCH (06:00)
[2020-08-05] MEDS: BUDESONIDE NEB 0.5 MG/2 ML AMPUL NEB SCH (07:35)
[2020-08-05] MEDS: PROMETHAZINE HCL 25 MG TABLET PO PRN (08:51)
[2020-08-05] MEDS: GUAIFENESIN 600 MG TABLET.SA PO SCH (09:38)
[2020-08-05] MEDS: NIFEDIPINE 30 MG TAB.ER.24 PO SCH (09:38)
[2020-08-05] MEDS: CALCIUM CARBONATE 500 MG TAB.CHEW PO SCH (09:39)
[2020-08-05] MEDS: HYDROXYCHLOROQUINE SULFATE 200 MG TABLET PO SCH (09:39)
[2020-08-05] MEDS: LIOTHYRONINE SODIUM 5 MCG TABLET PO SCH (09:39)
[2020-08-05] MEDS: AZATHIOPRINE 50 MG TABLET PO SCH (09:40)
--- NOTE | 2020-08-05 09:41 | RADIOLOGY REPORT (SQ) ---
EXAM DESCRIPTION: COOKIE SWALLOW IMAGES COMPLETED DATE/TIME: 08/05/2020 9:18 am REASON FOR STUDY: cough with all PO COMPARISON: None. TECHNIQUE: Videofluoroscopic swallowing examination was performed in conjunction with speech patholo gy. Videofluoroscopic imaging was obtained and reviewed and these are the findings: RADIATION DOSE: Fluoro time 1.9 minutes 1 images saved to PACS. LIMITATIONS: None FINDINGS: The patient was brought into the fluoro room and placed upright on a modified barium swall ow chair. The patient was then given multiple consistencies mixed with barium to swallow under live fluoroscopic video guidance. According to the Speech Pathologist there was no penetration or aspirat ion. Reflux in the upper esophagus was seen throughout study. Please refer to the speech pathology r eport for further details. IMPRESSION: NO EVIDENCE OF PENETRATION OR ASPIRATION. GASTROESOPHAGEAL REFLUX WAS SEEN THROUGHOUT T HE STUDY. PLEASE SEE SPEECH PATHOLOGIST REPORT FOR OTHER FINDINGS AND RECOMMENDATIONS. COMMENT: None Quality ID [id number]: Final reports for procedures using fluoroscopy that document radiation exposure manjit eva, or exposure time and number of fluorographic images (if radiation exposure indices are not avail able) TECHNICAL DOCUMENTATION: JOB ID: [id number] 2010 [employer]- All Rights Reserved Reading location - IP/workstation name: [email or web address] [id number]
[2020-08-05] MEDS: PREDNISONE 20 MG TABLET PO SCH (09:53)
[2020-08-05] MEDS: NORMAL SALINE 1000 ML 1,000 ML IV PRN (12:08)
--- NOTE | 2020-08-05 12:55 | ST Inp Modified Barium Swallow ---
Medical Diagnosis - Medical Diagnoses Medical Diagnosis Description & ICD-10 Code(s): laryngeal stridor - ICD-10 Tx Diagnosis Coding (1) Dysphagia ICD-10 Code(s): R13.10 - DYSPHAGIA, UNSPECIFIED (2) Laryngotracheomalacia ICD-10 Code(s): Q32.0 - CONGENITAL TRACHEOMALACIA; Q31.5 - CONGENITAL LARYNGOMALACIA (3) Stridor ICD-10 Code(s): R06.1 - STRIDOR ST Inpatient [facility] [place] - General Date: 08/05/20 Date of Onset: 08/02/20 - History -: Medical - per EMR: patient admitted 08/02 with stridor. PMH includes asthma, lupus, Raynauds, hypothyroidism, cryoglobulinemia, GERD, costochondritis. Patient was previously evaluated by speech therapy on admission in March 2020 due to vocal cord dysfunction (PVFM). Current chest CT showed sligh opacification of left lower lung base. Patient has significant allergy list, including wheat, caffeine, chicken, pineapple. Patient further states that she is allergic to flouride, and therefore cannot have tap water, as well as milk products. At bedside, patient demonstrated hard cough with all PO trials and textures. Medications: Medications Reviewed Allergies: Refer to medical record - Subjective Current Nutritional Means: PO Current PO Diet: Pureed Current Symptoms: Coughing Pain: 2/5 - chronic - Objective Assessment: Upright, Left Lateral - Food Trials Food Trials Used: Thin liquids, Pureed, Other - limited textures able to be given due to allergies. Patient unable to tolerate crackers due to wheat allergy, unable to trial diced peaches as patient states she cannot have "canned" fruits. Unable to use barium paste as patient has paraben allergy. - Assessment Labial Function: Within Normal Limits Lingual Function: Within Normal Limits Mandibular Function: Within Normal Limits Laryngeal Function: breathy voice - Pharyngeal Stage Initiation of Pharyngeal Stage: Normal Decreased Laryngeal Elevation: No Reduced Velo-Pharyngeal Closure: no Reduced Pressure Generation: No Reduced Tongue Base Retraction: No Pre-Swallowing Pooling in Valleculae: None Pre-Swallowing Pooling in Pyriforms: None Reduced Thyro-Hyiod Approximation: No Reduced Epiglottic Excursion: No Reduced Pharyngeal Peristalsis: No Post Swallow Residuals in Valleculae: None Post Swallow Residuals in Pyriforms: Mild - Esophageal Stage Upper Esophageal Transit: Impaired Esophageal Stage Comments: barium was seen to enter upper esophageal sphincter without difficulty. After the swallow, barium was seen to reflux back up into pharynx after the swallow multiple times. - Impression/Summary Laryngeal Penetration: No - patient was seen to cough on some occasions after the swallow, however, no material was seen to enter the airway on these occurances. Tracheal Aspiration: no Patient Presents With: Esophageal stage dysph. Risk of Aspiration: Mild Risk Due To: Patient is at risk of aspiration after the swallow due to reflux. - Recommendations Solid Diet Recommendations: Regular - patient appears safe for regular textures, however, due to discomfort with swallowing, patient may wish to alter food textures. Liquid Diet Recommendations: Thin Dysphagia Therapy with NETWORK SUPPORT ENGINEER: No Recommended Techniques: Fully Upright During Meal - reflux precautions Other Recommendations: May wish to follow up with GI due to reflux. - Time Total Time: 30 Total Timed Minutes: 30
[2020-08-05 16:49] VITALS: BP 123/51
--- NOTE | 2020-08-05 18:00 | PDOC DISCHARGE SUMMARY ---
Impression - Admit/DC Date/PCP Admission Date/Primary Care Provider: 08/02/20 23:48 JOSI MAYES Discharge Date: 08/05/20 - Discharge Diagnosis (1) Paradoxical vocal cord motion disorder Is this a current diagnosis for this admission?: Yes (2) Laryngopharyngeal reflux Is this a current diagnosis for this admission?: Yes (3) Laryngeal stridor Is this a current diagnosis for this admission?: Yes (4) Acute and chronic respiratory failure with hypoxia Is this a current diagnosis for this admission?: Yes (5) Neuromuscular disease Is this a current diagnosis for this admission?: Yes (6) Weakness Is this a current diagnosis for this admission?: Yes (7) Lactic acidemia Is this a current diagnosis for this admission?: Yes - Additional Information Resuscitation Status: Full Code Discharge Diet: As Tolerated Discharge Activity: Activity As Tolerated Referrals: DAMASO ANTUNEZ NP-C [Primary Care Provider] - Follow up as needed (left message to call 07-23-20 (12:10)) Prescriptions: Ranitidine HCl [Acid Real Estate Broker Associate] 150 mg PO QHS #30 tablet Pantoprazole Sodium [Protonix [address] Tablet] 40 mg PO QAM #30 tablet.dr Home Medications: Albuterol Sulfate [Ventolin 0.083% Neb 2.5 mg/3 mL Ampul] 1 vial NEB RTQ4HP PRN 08/02/20 Baclofen [Baclofen 20 mg Tablet] 20 mg PO Q8 08/02/20 Benzonatate [Tessalon Perles 100 mg Capsule] 100 mg PO TIDP PRN 08/02/20 Biotin 20,000 mcg PO DAILY 08/02/20 Budesonide [Pulmicort] 0.5 mg IH RTBID 08/02/20 Calcium Carbonate 1,500 mg PO DAILY 08/02/20 Cranberry Fruit Extract [Cranberry 200 mg Capsule] 200 mg PO DAILY 08/02/20 Gabapentin 800 mg PO Q8A 08/02/20 Hydromorphone HCl [Dilaudid 2 mg Tablet] 2 mg PO Q6HP PRN 08/02/20 Hydroxychloroquine Sulfate [Plaquenil 200 mg Tablet] 200 mg PO DAILY 08/02/20 Hydroxyzine Pamoate [Vistaril] 25 mg PO Q8 08/02/20 Levothyroxine Sodium 88 mcg PO Q6AM 08/02/20 Liothyronine Sodium [Cytomel] 5 mcg PO DAILY 08/02/20 Metoclopramide HCl 5 mg PO AC 08/02/20 Nifedipine [Nifedipine ER] 30 mg PO DAILY 08/02/20 Nitrofurantoin Monohyd/M-Cryst [Macrobid 100 mg Capsule] 100 mg PO DAILY 08/02/20 Prednisone [Deltasone 5 mg Tablet] 10 mg PO DAILY 08/02/20 Promethazine HCl [Phenergan 25 mg Tablet] 25 mg PO BIDP PRN 08/02/20 Gabapentin [Neurontin 400 mg Capsule] 1,200 mg PO QHS 08/03/20 Ipratropium/Albuterol Sulfate [Duoneb 3 ml Ampul] 3 ml NEB RTQID 08/03/20 Melatonin [Melatonin 5 mg Tablet] 5 mg PO HSP PRN 08/03/20 Nystatin [Mycostatin Topical Powder 15 gm] 1 applic TOP BID 08/03/20 Pantoprazole Sodium [Protonix [address] Tablet] 40 mg PO QAM #30 tablet.dr 08/05/20 Ranitidine HCl [Acid Real Estate Broker Associate] 150 mg PO QHS #30 tablet 08/05/20 History of Present Illiness History of Present Illness: According to admitting provider: CAROLINA MONTEZ is a 59 year old female with a complex past medical history. She states that she has been having some difficulty breathing over the last several days. It became worse today. EMS was called and found her to have juan pablo k stridor. She was evaluated in the emergency department both by the emergency department physician and the cellular equipment repairer carton making machine operator. She did receive racemic epinephrine and this resolved the stridor but she did require ongoing BiPAP therapy. She is on oxygen 2 L nasal cannula at home. She has a very complex history including asthma, lupus, Raynauds, hypothyroidism, cryoglobulinemia, vasculitis unspecified, vocal cord disease, fibromyalgia, sicca syndrome, nonfamilial hypogammaglobulinemia, gastroesophageal reflux disease, costochondritis and chronic pain. She has had stridor before. She also reports recent diagnosis of neuromuscular disease. 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 She was in [facility] in May with [facility] stay. She is currently on home health. Laboratory studies were unremarkable except a lactic acid of 4.1. AST and ALT were minimally elevated. She is maintaining oxygen saturation on BiPAP and will be weaning back to her 2 L nasal cannula as tolerated. She will be admitted to [facility] for close monitoring. She will be on telemetry. Majority of her home medications have been continued. Because of her multiple allergies she will be given levofloxacin. We need to monitor due to its QT prolonging properties. She already has a borderline QT C possibly due to her current medication regimen. The chest x-ray shows pneumonia but she has a normal white blood cell count and is afebrile. Consider stopping antibiotics if no additional findings to support pneumonia are discovered. Unfortunately she is on multiple immunosuppressant medications making her high risk. Hospital Course Hospital Course: Patient is a 59-year-old female with chronic weakness, nonambulatory from the most part due to reported neuromuscular disease. Patient came in with shortness of breath and increased stridor making it difficult for patient to breathe. She was noted to be having stridor as well as some wheezing in her lung simmons. She was started on steroids and nebulizers. Chest x-ray initially was questionable for pneumonia but further evaluation of images does not show any significant difference between this and her prior x-ray. She will did receive 2 days of Levaquin IV however. Patient's breathing is settled down after receiving some racemic epinephrine, was placed on the BiPAP. Since yesterday she has been off the BiPAP and doing well. She did still notably have some stridor but was no longer have respiratory distress. Lactic acidemia likely secondary to her shortness of breath, hypoxia and exacerbation of her breathing problem. She did receive fluids and lactic acidosis subsequently resolved. She was initially more hypoxic but has been fine with high saturations in the high 90s to 100% on 2 L after he did well even on room air as well. She does have home oxygen. I had ENT evaluate the patient and perform a laryngeal scope today and Dr. Daly has informed me that he noted paradoxical motion disorder of the vocal cords. Patient also had a modified barium swallow study today which showed normal swallowing process but does have significant reflux. 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 Patient states she is no longer on PPI. Dr. Daly is in agreement that patient will benefit from aggressive speech therapy which patient will be set up with with her home health. I have also sent prescriptions for Protonix in the morning and ranitidine at night to help with symptoms. Patient is stable at the time of discharge. Physical Exam Vital Signs: Temp Pulse Resp BP Pulse Ox 97.7 F 78 19 123/51 L 100 08/05/20 16:25 08/05/20 16:25 08/05/20 16:25 08/05/20 16:25 08/05/20 16:25 Intake & Output 08/04/20 08/05/20 08/06/20 06:59 06:59 06:59 Intake Total 1882 2485 358 Output Total 4150 2250 1100 Balance -2268 235 -742 Weight 82.3 kg 83.4 kg 83.4 kg General appearance: PRESENT: no acute distress, cooperative Mouth exam: PRESENT: neck supple Neck exam: ABSENT: JVD Respiratory exam: PRESENT: stridor - Mild stridor, symmetrical, unlabored. ABSENT: accessory muscle use, retraction, tachypnea Cardiovascular exam: PRESENT: RRR, +S1, +S2. ABSENT: tachycardia GI/Abdominal exam: PRESENT: soft. ABSENT: rebound, rigid, tenderness Neurological exam: PRESENT: alert, awake, oriented to person, oriented to place, oriented to time Results Laboratory Results: WBC 15.2 10^3/uL (4.0-10.5) H 08/04/20 06:05 RBC 4.69 10^6/uL (3.72-5.28) 08/04/20 06:05 Hgb 14.8 g/dL (12.0-15.5) 08/04/20 06:05 Hct 44.0 % (36.0-47.0) 08/04/20 06:05 MCV 94 fl (80-97) 08/04/20 06:05 MCH 31.6 pg (27.0-33.4) 08/04/20 06:05 MCHC 33.7 g/dL (32.0-36.0) 08/04/20 06:05 RDW 13.4 % (11.5-14.0) 08/04/20 06:05 Plt Count 190 10^3/uL (150-450) 08/04/20 06:05 Lymph % (Auto) 32.4 % (13-45) 08/02/20 17:46 [place] % (Auto) 5.3 % (3-13) 08/02/20 17:46 Eos % (Auto) 0.6 % (0-6) 08/02/20 17:46 Baso % (Auto) 0.8 % (0-2) 08/02/20 17:46 Absolute Neuts (auto) 5.2 10^3/uL (1.7-8.2) 08/02/20 17:46 Absolute Lymphs (auto) 2.8 10^3/uL (0.5-4.7) 08/02/20 17:46 Absolute Monos (auto) 0.4 10^3/uL (0.1-1.4) 08/02/20 17:46 Absolute Eos (auto) 0.0 10^3/uL (0.0-0.6) 08/02/20 17:46 Absolute Basos (auto) 0.1 10^3/uL (0.0-0.2) 08/02/20 17:46 Seg Neutrophils % 60.9 % (42-78) 08/02/20 17:46 Carbonic Acid 1.16 mmol/L (1.05-1.35) 08/02/20 20:25 HCO3/H2CO3 Ratio 20:1 08/02/20 20:25 ABG pH 7.42 (7.35-7.45) 08/02/20 20:25 ABG pCO2 38.4 mmHg (35-45) 08/02/20 20:25 ABG pO2 100.2 mmHg (80-100) H 08/02/20 20:25 ABG HCO3 24.1 mmol/L (20-24) H 08/02/20 20:25 ABG Total CO2 25.3 mmol/L (21-25) H 08/02/20 20:25 ABG O2 Saturation 97.7 % (94-98) 08/02/20 20:25 ABG Base Excess -0.1 mmol/L 08/02/20 20:25 FiO2 25% 08/02/20 20:25 Sodium 141.3 mmol/L (137-145) 08/04/20 06:05 Potassium 4.0 mmol/L (3.6-5.0) 08/04/20 06:05 Chloride 105 mmol/L (98-107) 08/04/20 06:05 Carbon Dioxide 28 mmol/L (22-30) 08/04/20 06:05 Anion Gap 8 (5-19) 08/04/20 06:05 BUN 12 mg/dL (7-20) 08/04/20 06:05 Creatinine 0.45 mg/dL (0.52-1.25) L 08/04/20 06:05 Est GFR ( Amer) > 60 (>60) 08/04/20 06:05 Est GFR (MDRD) Non-Af > 60 (>60) 08/04/20 06:05 Glucose 110 mg/dL (75-110) 08/04/20 06:05 POC Glucose 147 mg/dL (70-110) H 08/03/20 23:15 Lactic Acid 1.9 mmol/L (0.7-2.1) 08/05/20 05:37 Calcium 8.8 mg/dL (8.4-10.2) 08/04/20 06:05 Magnesium 1.8 mg/dL (1.6-2.3) 08/03/20 06:24 Total Bilirubin 0.6 mg/dL (0.2-1.3) 08/03/20 06:24 Direct Bilirubin 0.4 mg/dL (0.0-0.4) 08/03/20 06:24 Neonat Total Bilirubin Not Reportable 08/03/20 06:24 Neonat Direct Bilirubin Not Reportable 08/03/20 06:24 Neonat Indirect Bili Not Reportable 08/03/20 06:24 AST 44 U/L (14-36) H 08/03/20 06:24 ALT 51 U/L (<35) H 08/03/20 06:24 Alkaline Phosphatase 44 U/L (38-126) 08/03/20 06:24 Troponin I < 0.012 ng/mL 08/02/20 17:46 Total Protein 5.4 g/dL (6.3-8.2) L 08/03/20 06:24 Albumin 3.1 g/dL (3.5-5.0) L 08/03/20 06:24 Urine Color YELLOW 08/02/20 23:10 Urine Appearance SLIGHTLY-CLOUDY 08/02/20 23:10 Urine pH 5.0 (5.0-9.0) 08/02/20 23:10 Ur Specific [place] 1.026 08/02/20 23:10 Urine Protein 100 mg/dL (NEGATIVE) H 08/02/20 23:10 Urine Glucose (UA) NEGATIVE mg/dL (NEGATIVE) 08/02/20 23:10 Urine Ketones NEGATIVE mg/dL (NEGATIVE) 08/02/20 23:10 Urine Blood NEGATIVE (NEGATIVE) 08/02/20 23:10 Urine Nitrite NEGATIVE (NEGATIVE) 08/02/20 23:10 Urine Bilirubin NEGATIVE (NEGATIVE) 08/02/20 23:10 Urine Urobilinogen NEGATIVE mg/dL (<2.0) 08/02/20 23:10 Ur Leukocyte Esterase NEGATIVE (NEGATIVE) 08/02/20 23:10 Urine WBC (Auto) 2 /HPF 08/02/20 23:10 Urine RBC (Auto) 2 /HPF 08/02/20 23:10 U Hyaline Cast (Auto) 25 /LPF 08/02/20 23:10 Squamous Epi Cells Auto 1 /HPF 08/02/20 23:10 Urine Mucus (Auto) MANY /LPF 08/02/20 23:10 Urine Ascorbic Acid 40 (NEGATIVE) H 08/02/20 23:10 08/02/20 17:46 Troponin I < 0.012 Impressions: Chest X-Ray 08/02/20 18:03 IMPRESSION: 1. Slight opacification at the left lung base may be on the basis of infiltrate. Patient has a known history of COVID_19 disease. Modified Barium Swallow 08/05/20 00:01 IMPRESSION: NO EVIDENCE OF PENETRATION OR ASPIRATION. GASTROESOPHAGEAL REFLUX WAS SEEN THROUGHOUT THE STUDY. PLEASE SEE SPEECH PATHOLOGIST REPORT FOR OTHER FINDINGS AND RECOMMENDATIONS. Plan Time Spent: Greater than 30 Minutes Stroke Is this a Stroke Patient?: No Acute Heart Failure Is this a Heart Failure Patient?: No
--- NOTE | 2020-08-06 08:20 | PDOC CONSULTATION ---
Consultation Consult Date: 08/05/20 Provider Consulted: ZO GODINEZ History of Present Illness Admission Date/PCP: 08/02/20 23:48 JOSI MAYES History of Present Illness: The otolaryngology service was asked to evaluate this patient to rule out a laryngeal disorder. The patient exhibits mild inspiratory stridor. Patient states that at times she finds it difficult to breathe secondary to the inspiratory stridor. States is been going on for several months. Patient was admitted for another reason. Past Medical History Cardiac Medical History: Denies: Coronary Artery Disease, Myocardial Infarction, Hypertension Pulmonary Medical History: Reports: Asthma Denies: Bronchitis, Chronic Obstructive Pulmonary Disease (COPD), Pneumonia Neurological Medical History: Reports: Other - Recently diagnosed neuromuscular illness. Guillian [place] like illness Denies: Seizures Endocrine Medical History: Reports: Hypothyroidism Malignancy Medical History: Reports: Ovarian Cancer GI Medical History: Reports: Gastroesophageal Reflux Disease Musculoskeltal Medical History: Reports: Arthritis, Fibromyalgia Psychiatric Medical History: Reports: Depression Hematology: Denies: Anemia Past Surgical History Past Surgical History: Reports: Appendectomy, Cholecystectomy, Hysterectomy, Other - Surgery to remove adhesions Social History Lives with: Spouse/Significant other Smoking Status: Never Smoker Electronic Cigarette use?: No Frequency of Alcohol Use: None Hx Recreational Drug Use: No Hx Prescription Drug Abuse: No - Advance Directive Resuscitation Status: Full Code Family History Family History: Reviewed & Not Pertinent Parental Family History Reviewed: No Children Family History Reviewed: No Sibling(s) Family History Reviewed.: No Medication/Allergy Home Medications: Albuterol Sulfate [Ventolin 0.083% Neb 2.5 mg/3 mL Ampul] 1 vial NEB RTQ4HP PRN 08/02/20 Baclofen [Baclofen 20 mg Tablet] 20 mg PO Q8 08/02/20 Benzonatate [Tessalon Perles 100 mg Capsule] 100 mg PO TIDP PRN 08/02/20 Biotin 20,000 mcg PO DAILY 08/02/20 Budesonide [Pulmicort] 0.5 mg IH RTBID 08/02/20 Calcium Carbonate 1,500 mg PO DAILY 08/02/20 Cranberry Fruit Extract [Cranberry 200 mg Capsule] 200 mg PO DAILY 08/02/20 Gabapentin 800 mg PO Q8A 08/02/20 Hydromorphone HCl [Dilaudid 2 mg Tablet] 2 mg PO Q6HP PRN 08/02/20 Hydroxychloroquine Sulfate [Plaquenil 200 mg Tablet] 200 mg PO DAILY 08/02/20 Hydroxyzine Pamoate [Vistaril] 25 mg PO Q8 08/02/20 Levothyroxine Sodium 88 mcg PO Q6AM 08/02/20 Liothyronine Sodium [Cytomel] 5 mcg PO DAILY 08/02/20 Metoclopramide HCl 5 mg PO AC 08/02/20 Nifedipine [Nifedipine ER] 30 mg PO DAILY 08/02/20 Nitrofurantoin Monohyd/M-Cryst [Macrobid 100 mg Capsule] 100 mg PO DAILY 08/02/20 Prednisone [Deltasone 5 mg Tablet] 10 mg PO DAILY 08/02/20 Promethazine HCl [Phenergan 25 mg Tablet] 25 mg PO BIDP PRN 08/02/20 Gabapentin [Neurontin 400 mg Capsule] 1,200 mg PO QHS 08/03/20 Ipratropium/Albuterol Sulfate [Duoneb 3 ml Ampul] 3 ml NEB RTQID 08/03/20 Melatonin [Melatonin 5 mg Tablet] 5 mg PO HSP PRN 08/03/20 Nystatin [Mycostatin Topical Powder 15 gm] 1 applic TOP BID 08/03/20 Pantoprazole Sodium [Protonix [address] Tablet] 40 mg PO QAM #30 tablet.dr 08/05/20 Ranitidine HCl [Acid Back Facer] 150 mg PO QHS #30 tablet 08/05/20 Allergies/Adverse Reactions: caffeine [Caffeine] Allergy (Severe, Verified 08/02/20 17:46) sets off autoimmune response ethyl chloride [Ethyl Chloride] Allergy (Severe, Verified 08/02/20 17:46) Anaphylaxis iodine [Iodine] Allergy (Severe, Verified 08/02/20 17:46) Anaphylaxis lidocaine HCl [From Xylocaine] Allergy (Severe, Verified 08/02/20 17:46) Anaphylaxis morphine [Morphine] Allergy (Severe, Verified 08/02/20 17:46) swelling, AMS pentazocine lactate [From Talwin] Allergy (Severe, Verified 08/02/20 17:46) Hallucinations procaine HCl [From Novocain] Allergy (Severe, Verified 08/02/20 17:46) Anaphylaxis carisoprodol [From Soma] Allergy (Intermediate, Verified 08/02/20 17:46) muscle problems Iodinated Contrast Media [IV Dye, Iodine Containing] Allergy (Intermediate, Verified 08/02/20 17:46) Anaphylaxis pentazocine [Pentazocine] Allergy (Intermediate, Verified 08/02/20 17:46) Hallucinations adhesive tape [Adhesive Tape] Allergy (Mild, Verified 08/02/20 17:46) sores, skin peeled off paraben [Paraben] Allergy (Mild, Verified 08/02/20 17:46) rash ampicillin [Ampicillin] Allergy (Unknown, Verified 08/02/20 17:46) convulsions atropine [Atropine] Allergy (Unknown, Verified 08/02/20 17:46) unknown chicken derived [Chicken Derived] Allergy (Unknown, Verified 08/02/20 17:46) unknown pineapple [Pineapple] Allergy (Unknown, Verified 08/02/20 17:46) unknown wheat [Wheat] Allergy (Unknown, Verified 08/02/20 17:46) unknown broccoli Allergy (Verified 08/04/20 12:22) cantaloupe Allergy (Verified 08/04/20 12:22) cauliflower Allergy (Verified 08/04/20 12:22) chocolate flavor Allergy (Verified 08/04/20 12:22) Dickens And Derivatives Allergy (Verified 08/04/20 12:22) colloidal oatmeal Allergy (Verified 08/04/20 12:22) corn Allergy (Verified 08/04/20 12:22) eggplant Allergy (Verified 08/04/20 12:22) gluten Allergy (Verified 08/04/20 12:22) green pepper Allergy (Verified 08/04/20 12:22) inverted sugar Allergy (Verified 08/04/20 12:22) milk Allergy (Verified 08/04/20 12:22) onion Allergy (Verified 08/04/20 12:22) potato Allergy (Verified 08/04/20 12:22) rice Allergy (Verified 08/04/20 12:22) soy Allergy (Verified 08/04/20 12:22) acetic acid [Acetic Acid] Adverse Reaction (Mild, Verified 08/02/20 17:46) flu like symptoms hops Allergy (Severe, Uncoded 08/02/20 17:46) severe asthma perfume Ht 52 Allergy (Severe, Uncoded 08/02/20 17:46) Anaphylaxis acrylic Allergy (Intermediate, Uncoded 08/02/20 17:46) swelling fluoride Allergy (Unknown, Uncoded 08/02/20 17:46) unknown canned vegetables Allergy (Uncoded 08/04/20 12:22) green beans Allergy (Uncoded 08/04/20 12:22) local anesthetics Allergy (Uncoded 08/02/20 17:46) muskmelon Allergy (Uncoded 08/04/20 12:22) peanut butter Allergy (Uncoded 08/04/20 12:22) raw vegetables Allergy (Uncoded 08/04/20 12:22) Review of Systems Constitutional: ABSENT: chills, fever(s), headache(s), weight gain, weight loss Eyes: ABSENT: visual disturbances Ears: ABSENT: hearing changes Cardiovascular: ABSENT: chest pain, dyspnea on exertion, edema, orthropnea, palpitations Respiratory: PRESENT: dyspnea Gastrointestinal: ABSENT: abdominal pain, constipation, diarrhea, hematemesis, hematochezia, nausea, vomiting Musculoskeletal: ABSENT: joint swelling Integumentary: ABSENT: rash, wounds Neurological: ABSENT: abnormal gait, abnormal speech, confusion, dizziness, focal weakness, syncope Psychiatric: ABSENT: anxiety, depression, homidical ideation, suicidal ideation Physical Exam Vital Signs: Temp Pulse Resp BP Pulse Ox 97.7 F 78 19 123/51 L 100 08/05/20 16:25 08/05/20 16:25 08/05/20 16:25 08/05/20 16:25 08/05/20 16:25 Intake & Output 08/05/20 08/06/20 08/07/20 06:59 06:59 06:59 Intake Total 2485 1138 Output Total 2250 2300 Balance 235 -1162 Weight 83.4 kg 83.4 kg Exam: General: Patient is resting comfortably in her bed. There is no evidence of dyspnea at rest. The patient does converse appropriately without stridor. Oral cavity oropharyngeal exam: Normal Neck: Normal Flexible fiberoptic laryngoscopy: 1. Nasopharynx: Normal 2. Hypopharynx: Normal 3. Larynx: Paradoxical movement of the true vocal cords. The vocal cords adduct on inspiration, resulting in inspiratory stridor. When the patient coughs the vocal cords act normally by abducting. Results Laboratory Results: 08/04/20 06:05 08/04/20 06:05 08/02/20 17:46 Troponin I < 0.012 Impressions: Chest X-Ray 08/02/20 18:03 IMPRESSION: 1. Slight opacification at the left lung base may be on the basis of infiltrate. Patient has a known history of COVID_19 disease. Modified Barium Swallow 08/05/20 00:01 IMPRESSION: NO EVIDENCE OF PENETRATION OR ASPIRATION. GASTROESOPHAGEAL REFLUX WAS SEEN THROUGHOUT THE STUDY. PLEASE SEE SPEECH PATHOLOGIST REPORT FOR OTHER FINDINGS AND RECOMMENDATIONS. 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 The diagnosis and treatment plan were discussed with the patient, staff and the hospitalist, who all voiced understanding. 2. Upon entering the room the patient was resting comfortably without inspiratory stridor, however once we began the fiberoptic laryngoscopy inspiratory stridor was noted secondary to the paradoxical movement of the vocal cords. More than likely the stress of the fiberoptic exam initiated the par adoxical vocal cord movement. This diagnosis tends to be more common in females and it can be associated with gastroesophageal reflux, stress, anxiety, among other factors. The recommended treatment is intense speech therapy by speech pathologist. Consider starting an anxiolytic. 3. Recommend speech pathology consult for further treatment. 4. Since the modified barium swallow did demonstrate gastroesophageal reflux disease, recommend starting a PPI.
== END 2020-08-05 19:20 | disposition home or self-care (01) | DRG 154 ==
LOC: ER 17:35 → EH 23:48 → 3W 08-03 04:32
PROVIDERS: ADMIT Internal Medicine Critical Care Medicine; ATTEND Internal Medicine
PROC: 0CJS8ZZ Inspection of Larynx, Via Natural or Artificial Opening Endoscopic (ICD-10-PCS; principal; 2020-08-05)
DX: J38.3 Other diseases of vocal cords (principal); J96.21 Acute and chronic respiratory failure with hypoxia; E87.2 Acidosis; J45.901 Unspecified asthma with (acute) exacerbation; D80.1 Nonfamilial hypogammaglobulinemia; J38.5 Laryngeal spasm; Z90.49 Acquired absence of other specified parts of digestive tract; Z90.710 Acquired absence of both cervix and uterus; K21.9 Gastro-esophageal reflux disease without esophagitis; G70.9 Myoneural disorder, unspecified; Z79.51 Long term (current) use of inhaled steroids; Z79.899 Other long term (current) drug therapy; Z99.81 Dependence on supplemental oxygen; M32.9 Systemic lupus erythematosus, unspecified; I73.00 Raynaud's syndrome without gangrene; G89.29 Other chronic pain; M19.90 Unspecified osteoarthritis, unspecified site; F32.9 Major depressive disorder, single episode, unspecified; M79.7 Fibromyalgia; Z88.4 Allergy status to anesthetic agent; Z88.1 Allergy status to other antibiotic agents; Z91.041 Radiographic dye allergy status; Z91.011 Allergy to milk products; Z88.8 Allergy status to other drugs, medicaments and biological substances; Z91.018 Allergy to other foods; Z91.048 Other nonmedicinal substance allergy status; E03.9 Hypothyroidism, unspecified; I10 Essential (primary) hypertension
CPT/HCPCS: 36415; 71045; 74230; 80048; 80053; 81001; 82803; 82962; 83605; 83735; 84484; 85025; 85027; 87040; 93005; 93010; 94640; 94660; 96365; 96375; 99291; J1644; J1956; J2060; J3480; J3490; J7030; J7120; J7500; J7512; J7614

== ENCOUNTER 2020-08-19 11:35 | Emergency (ER) | payer MEDICARE ==
[2020-08-19] MEDS ORDERED: RACEPINEPHRINE HCL 2.25% NEB 0.5 ML AMPUL NEB ONE (11:39)
[2020-08-19] MEDS ORDERED: LORAZEPAM INJ 2 MG/1 ML VIAL IV ONE (11:46)
--- NOTE | 2020-08-19 12:58 | ER Document Report ---
Entered by GARY LOPEZ SCRIBE 08/19/20 1143 Acting as scribe for:JAMISON CLAIRE MD ED Allergic Reaction - General Stated Complaint: DIFFICULTY BREATHING Time Seen by Provider: 08/19/20 11:39 Primary Care Provider: MATHEUS BLACK MD [Primary Care Provider] - Follow up as needed Mode of Arrival: Wheelchair Information source: Patient, Relative Notes: This 59 year old female patient presents to the emergency department today from MRI after having a possible allergic reaction to MRI contrast which was given just prior to arrival. She was in MRI getting an outpatient scan of the brain and the neck performed and after receiving contrast developed shortness of breath with wheezing. mentions that the last time this happened ativan helped it. She was given racemic epi today with no change and ativan did considerably reduce her wheezing and shortness of breath, she now requests bipap. Patient was admitted on 08/02 through 08/05/2020 with similar complaints and was treated with Ativan, epinephrine, albuterol/Atrovent, and steroids with BiPAP. TRAVEL OUTSIDE OF THE [place] IN LAST 30 DAYS: No - Related Data Allergies/Adverse Reactions: caffeine [Caffeine] Allergy (Severe, Verified 08/02/20 17:46) sets off autoimmune response ethyl chloride [Ethyl Chloride] Allergy (Severe, Verified 08/02/20 17:46) Anaphylaxis iodine [Iodine] Allergy (Severe, Verified 08/02/20 17:46) Anaphylaxis lidocaine HCl [From Xylocaine] Allergy (Severe, Verified 08/02/20 17:46) Anaphylaxis morphine [Morphine] Allergy (Severe, Verified 08/02/20 17:46) swelling, AMS pentazocine lactate [From Talwin] Allergy (Severe, Verified 08/02/20 17:46) Hallucinations procaine HCl [From Novocain] Allergy (Severe, Verified 08/02/20 17:46) Anaphylaxis carisoprodol [From Soma] Allergy (Intermediate, Verified 08/02/20 17:46) muscle problems Iodinated Contrast Media [IV Dye, Iodine Containing] Allergy (Intermediate, Verified 08/02/20 17:46) Anaphylaxis pentazocine [Pentazocine] Allergy (Intermediate, Verified 08/02/20 17:46) Hallucinations adhesive tape [Adhesive Tape] Allergy (Mild, Verified 08/02/20 17:46) sores, skin peeled off paraben [Paraben] Allergy (Mild, Verified 08/02/20 17:46) rash ampicillin [Ampicillin] Allergy (Unknown, Verified 08/02/20 17:46) convulsions atropine [Atropine] Allergy (Unknown, Verified 08/02/20 17:46) unknown chicken derived [Chicken Derived] Allergy (Unknown, Verified 08/02/20 17:46) unknown pineapple [Pineapple] Allergy (Unknown, Verified 08/02/20 17:46) unknown wheat [Wheat] Allergy (Unknown, Verified 08/02/20 17:46) unknown broccoli Allergy (Verified 08/04/20 12:22) cantaloupe Allergy (Verified 08/04/20 12:22) cauliflower Allergy (Verified 08/04/20 12:22) chocolate flavor Allergy (Verified 08/04/20 12:22) [place] Derivatives Allergy (Verified 08/04/20 12:22) colloidal oatmeal Allergy (Verified 08/04/20 12:22) corn Allergy (Verified 08/04/20 12:22) eggplant Allergy (Verified 08/04/20 12:22) gluten Allergy (Verified 08/04/20 12:22) green pepper Allergy (Verified 08/04/20 12:22) inverted sugar Allergy (Verified 08/04/20 12:22) milk Allergy (Verified 08/04/20 12:22) onion Allergy (Verified 08/04/20 12:22) potato Allergy (Verified 08/04/20 12:22) rice Allergy (Verified 08/04/20 12:22) soy Allergy (Verified 08/04/20 12:22) acetic acid [Acetic Acid] Adverse Reaction (Mild, Verified 08/02/20 17:46) flu like symptoms hops Allergy (Severe, Uncoded 08/02/20 17:46) severe asthma perfume Ht 52 Allergy (Severe, Uncoded 08/02/20 17:46) Anaphylaxis acrylic Allergy (Intermediate, Uncoded 08/02/20 17:46) swelling fluoride Allergy (Unknown, Uncoded 08/02/20 17:46) unknown canned vegetables Allergy (Uncoded 08/04/20 12:22) green beans Allergy (Uncoded 08/04/20 12:22) local anesthetics Allergy (Uncoded 08/02/20 17:46) muskmelon Allergy (Uncoded 08/04/20 12:22) peanut butter Allergy (Uncoded 08/04/20 12:22) raw vegetables Allergy (Uncoded 08/04/20 12:22) Past Medical History - Social History Smoking Status: Never Smoker Cigarette use (# per day): No Chew tobacco use (# tins/day): No Smoking Education Provided: No Frequency of alcohol use: None Drug Abuse: None Lives with: Family Family History: Reviewed & Not Pertinent Pulmonary Medical History: Reports: Hx Asthma Endocrine Medical History: Reports: Hx Hypothyroidism Malignancy Medical History: Reports: Hx Ovarian Cancer GI Medical History: Reports: Hx Gastroesophageal Reflux Disease Musculoskeletal Medical History: Reports Hx Arthritis, Reports Hx Fibromyalgia Psychiatric Medical History: Reports: Hx Anxiety, Hx Depression Past Surgical History: Reports: Hx Appendectomy, Hx Bowel Surgery, Hx Cholecystectomy, Hx Hysterectomy, Hx Pancreatic Surgery - Multiple ERCP procedure with stent placement and removal, last surgery was, Other - Surgery to remove adhesions - Immunizations Hx Diphtheria, Pertussis, Tetanus Vaccination: No Review of Systems - Review of Systems Constitutional: See HPI, Other - possible allergic reaction EENT: No symptoms reported Cardiovascular: No symptoms reported Respiratory: See HPI, Short of breath Gastrointestinal: No symptoms reported Genitourinary: No symptoms reported Female Genitourinary: No symptoms reported Musculoskeletal: No symptoms reported Skin: No symptoms reported Hematologic/Lymphatic: No symptoms reported Neurological/Psychological: See HPI, Anxiety -: Yes All other systems reviewed and negative Physical Exam - Vital signs Vitals: Pulse Resp BP Pulse Ox 86 14 128/67 H 96 08/19/20 11:55 08/19/20 11:55 08/19/20 11:55 08/19/20 11:55 - Notes Notes: Physical Exam: General: Alert, appears anxious. HEENT: Normocephalic. Atraumatic. PERRL. Extraocular movements intact. Oropharynx clear. Neck: Supple. Non-tender. Respiratory: Upper airway sounds like epiglottic obstruction which does not change with racemic epinephrine. Does get considerably better after Ativan administration which reports helped during the last episode of this. She now is requesting BiPAP. Cardiovascular: Regular rate and rhythm. Abdominal: Normal Inspection. Non-tender. No distension. Normal Bowel Sounds. Back: No gross abnormalities. Extremities: Moves all four extremities. Upper extremities: Normal inspection. Normal ROM. Lower extremities: Normal inspection. No edema. Normal ROM. Neurological: Normal cognition. AAOx4. Normal speech. Psychological: Anxious Skin: Warm. Dry. Normal color. Course - Re-evaluation Re-evalutation: 08/19/20 13:56 Patient reports that her breathing is much better with the BiPAP. She is willing to try to breathe without it so we took it off. She maintain oxygen saturations of 98%, but made the breathing inspiratory obstructive sounds in her glottic throat region as before. Her mouth is quite dry we gave her some water to drink which she appreciated. But ultimately put the BiPAP back on because she stated she still felt restriction to breathe again. Her spouse reports that when this happened before the explanation for the Ativan helping was that she had spasm of muscles all over her body and it helped relax the muscles. 08/19/20 14:53 The patient told the nurse that she has to have Phenergan if she gets IV Solu- Medrol. 08/19/20 16:[address] when I saw him in the hallway and he went back to see the patient and her spouse. He is quite familiar with the patient from previous admissions, and states that she has vocal cords which do not expand and contract symmetrically and that is the cause of her symptoms. That is also why BiPAP seems to be so effective with her because it holds the cords apart when she inhales and exhales. She has had ENT evaluation confirming that that is the problem. She does seem to have a lot of anxiety, and that is will probably why Ativan helps when she has this problem. He also stated that they felt that her best treatment for her problem would be speech therapy. I did confirm this with the spouse. I did turn off the BiPAP and remove it, she is arousable, she is a little drowsy because of the Phenergan. Her mouth is quite dry and she does state that she would like water to drink. Her pulse ox reading is 94% on room air, and her heart rate is 82. I do not think there is an allergic reaction occurring at this time and not sure if this was ever really an allergic reaction. - Vital Signs Vital signs: Temp Pulse Resp BP Pulse Ox 86 10 L 147/93 H 93 08/19/20 11:55 08/19/20 16:01 08/19/20 16:01 08/19/20 16:01 Discharge - Discharge Clinical Impression: Laryngeal stridor Condition: Stable Disposition: HOME, SELF-CARE Additional Instructions: You appear to have had another 1 of your episodes where you have an increase in your respiratory stridor after getting IV contrast. This episode seems to have calm down at this time. You should drink plenty of water throughout the day in the evening while you rest at home. Follow-up with your primary care provider, your ear nose and throat doctor, and be sure you do the speech therapy they had recommended. RETURN TO THE EMERGENCY ROOM IF ANY NEW OR WORSENING SYMPTOMS. Referrals: MATHEUS BLACK MD [Primary Care Provider] - Follow up as needed I personally performed the services described in the documentation, reviewed and edited the documentation which was dictated to the scribe in my presence, and it accurately records my words and actions.
[2020-08-19] MEDS ORDERED: METHYLPREDNISOLONE INJ 125 MG/2 ML SDV IV ONE (14:19)
[2020-08-19] MEDS ORDERED: IPRATROPIUM/ALBUTEROL 0.5-2.5 MG/3 ML AMPUL NEB ONE (14:19)
[2020-08-19] MEDS ORDERED: PROMETHAZINE HCL INJ 25 MG/1 ML VIAL IV ONE (14:53)
[2020-08-19 16:07] VITALS: BP 147/93
== END 2020-08-19 16:40 | disposition home or self-care (01) ==
LOC: ER 11:35
DX: R06.1 Stridor (principal); J45.909 Unspecified asthma, uncomplicated; F41.9 Anxiety disorder, unspecified; R06.02 Shortness of breath; Z88.8 Allergy status to other drugs, medicaments and biological substances; Z88.4 Allergy status to anesthetic agent; Z88.6 Allergy status to analgesic agent; Z88.5 Allergy status to narcotic agent; Z91.041 Radiographic dye allergy status; Z91.048 Other nonmedicinal substance allergy status; Z88.0 Allergy status to penicillin; Z91.018 Allergy to other foods; Z91.011 Allergy to milk products
CPT/HCPCS: 94640 ×2; 99285; 96374; 96375; 70553; 72156; A9576; J2930; J2060; J2550; J3490

== ENCOUNTER → 2020-08-19 | Outpatient (CLI) | payer MEDICARE ==
[~2020-08-19] MED LIST: RACEPINEPHRINE HCL 2.25% NEB 0.5 ML AMPUL NEB ONE
--- NOTE | 2020-08-19 13:49 | RADIOLOGY REPORT (SQ) ---
EXAM DESCRIPTION: MRI HEAD COMBO IMAGES COMPLETED DATE/TIME: 08/19/2020 11:24 am REASON FOR STUDY: R53.1 WEAKNESS R53.1 WEAKNESS R06.00 DYSPNEA, UNSPECIFIED COMPARISON: None. TECHNIQUE: Multiplanar imaging includes noncontrasted T1, T2, FLAIR, diffusion with ADC map and post gadolinium contrast T1 sequences. Images stored on PACS. CONTRAST TYPE AND DOSE: 15 mL Prohance. RENAL FUNCTION: Not indicated. ACR Type II contrast agent associated with few, if any, unconfounded cases of NSF LIMITATIONS: None. FINDINGS: ANATOMY: No anomalies. Normal vascular flow voids. Pituitary fossa normal. CSF SPACES: Normal in size and contour. No hemorrhage. CEREBRUM: Sulci and gyri normal in size and contour. Single focus of signal alteration L FLAIR imagi ng left parietal white matter. More likely microvascular ischemia. Demyelinating process in the dif ferential. . No evidence of hemorrhage, mass, or extraaxial fluid collection. No abnormal enhancemen t post contrast. POSTERIOR FOSSA: No signal alteration. No hemorrhage. No edema, masses, or mass effect. Internal nick tory canals, cerebellopontine angles, mastoids normal. No enhancing lesions. No abnormal enhancement post contrast. DIFFUSION IMAGING: Negative for acute or subacute infarction. ORBITS: No masses. Globes normal. PARANASAL SINUSES: No fluid levels. Mucosa normal. OTHER: No other significant finding. IMPRESSION: Single focus of signal alteration in the white matter on FLAIR imaging. Differential is microvascular ischemia versus demyelinating process. No enhancing lesions. EVIDENCE OF ACUTE STROKE: NO. TECHNICAL DOCUMENTATION: JOB ID: [id number] 2010 [employer]- All Rights Reserved Reading location - IP/workstation name: [email or web address]
--- NOTE | 2020-08-19 14:27 | RADIOLOGY REPORT (SQ) ---
EXAM DESCRIPTION: MRI CERVICAL SPINE COMBO IMAGES COMPLETED DATE/TIME: 08/19/2020 11:24 am REASON FOR STUDY: R53.1 WEAKNESS R53.1 WEAKNESS R06.00 DYSPNEA, UNSPECIFIED COMPARISON: 2013 TECHNIQUE: Sagittal and Axial imaging includes T1, T2, STIR and gradient echo sequences. T1 post rodrick olinium sequences. CONTRAST TYPE AND DOSE: 15 mL Prohance. RENAL FUNCTION: Not indicated. ACR Type II contrast agent associated with few, if any, unconfounded cases of NSF LIMITATIONS: Mild motion artifact. FINDINGS: ALIGNMENT: Normal. VERTEBRAE: Intact. BONE MARROW: Normal. No marrow replacement or reactive changes. DISCS: Disc disease with signal and height loss and disc osteophyte complexes, most pronounced at C5- 6 and C6-7. HARDWARE: None in the spine. CORD AND BASE OF BRAIN: Normal in size and signal intensity. SOFT TISSUES: No soft tissue masses. C1-C2: No significant spinal stenosis. C2-C3: No significant spinal stenosis or exit foraminal stenosis. C3-C4: No significant spinal stenosis or exit foraminal stenosis. C4-C5: No significant spinal stenosis or exit foraminal stenosis. C5-C6: Mild right foraminal narrowing. C6-C7: Moderate bilateral foraminal narrowing. C7-T1: Mild foraminal narrowing. UPPER THORACIC: Incompletely imaged. No significant spinal stenosis or exit foraminal stenosis. ENHANCEMENT: No abnormal enhancement. OTHER: No other significant finding. IMPRESSION: 1. Cervical spondylosis. No high-grade stenosis. 2. No enhancing lesions. COMMENT: None. TECHNICAL DOCUMENTATION: JOB ID: [id number] 2010 [employer]- All Rights Reserved Reading location - IP/workstation name: [email or web address]
== END ==
LOC: RAD 09:37
PROVIDERS: ATTEND Specialist
DX: M47.812 Spondylosis without myelopathy or radiculopathy, cervical region (principal); R53.1 Weakness; R06.00 Dyspnea, unspecified
CPT/HCPCS: 70553; 72156; A9576; J3490

== ENCOUNTER 2020-09-03 05:52 | Emergency (ER) | payer MEDICARE ==
[2020-09-03] MEDS ORDERED: LORAZEPAM INJ 2 MG/1 ML VIAL IV ONE (06:54)
[2020-09-03] MEDS ORDERED: PROMETHAZINE HCL INJ 25 MG/1 ML VIAL IV ONE (06:54)
[2020-09-03] MEDS ORDERED: METHYLPREDNISOLONE INJ 125 MG/2 ML SDV IV ONE (06:55)
--- NOTE | 2020-09-03 08:19 | ER Document Report ---
Entered by GARY LOPEZ SCRIBE 09/03/2053 Acting as scribe for:JAMISON CLAIRE MD ED General - General Chief Complaint: Shortness Of Breath Stated Complaint: SHORT OF BREATH / BACK PAIN / SWELLING Time Seen by Provider: 09/03/20 06:48 Primary Care Provider: SHWETHA ARBOLEDA PA-C [Primary Care Provider] - Follow up in 3-5 days Mode of Arrival: Wheelchair Information source: Patient Notes: This 59 year old female patient presents to the emergency department today for subjective weight gain. Patient was seen here on 08/19/2020 for possible allergic reaction after receiving MRI contrast. Patient was having a very high- pitched squeaking noise coming from her upper airway at that time and she mentioned that Ativan, Solu-Medrol, and Phenergan help it usually. During her visit on 08/19 these medications seemed to help and she is requesting them again today. states that this high-pitched squeaking noise began because the patient "had to sit up too long in her wheelchair". mentions that her PCP told her to come to the emergency department today to be evaluated for subjective weight gain. According to [facility] records the patient has lost over 3 kg in the last 2 weeks although the states that she has "gone up two diaper sizes in two days". TRAVEL OUTSIDE OF THE [place] IN LAST 30 DAYS: No - Related Data Allergies/Adverse Reactions: caffeine [Caffeine] Allergy (Severe, Verified 09/03/20 06:28) sets off autoimmune response ethyl chloride [Ethyl Chloride] Allergy (Severe, Verified 09/03/20 06:28) Anaphylaxis iodine [Iodine] Allergy (Severe, Verified 09/03/20 06:28) Anaphylaxis lidocaine HCl [From Xylocaine] Allergy (Severe, Verified 09/03/20 06:28) Anaphylaxis morphine [Morphine] Allergy (Severe, Verified 09/03/20 06:28) swelling, AMS pentazocine lactate [From Talwin] Allergy (Severe, Verified 09/03/20 06:28) Hallucinations procaine HCl [From Novocain] Allergy (Severe, Verified 09/03/20 06:28) Anaphylaxis carisoprodol [From Soma] Allergy (Intermediate, Verified 09/03/20 06:28) muscle problems Iodinated Contrast Media [IV Dye, Iodine Containing] Allergy (Intermediate, Verified 09/03/20 06:28) Anaphylaxis pentazocine [Pentazocine] Allergy (Intermediate, Verified 09/03/20:28) Hallucinations adhesive tape [Adhesive Tape] Allergy (Mild, Verified 09/03/20:28) sores, skin peeled off paraben [Paraben] Allergy (Mild, Verified 09/03/20 06:28) rash ampicillin [Ampicillin] Allergy (Unknown, Verified 09/03/20:28) convulsions atropine [Atropine] Allergy (Unknown, Verified 09/03/20:28) unknown chicken derived [Chicken Derived] Allergy (Unknown, Verified 09/03/20:) unknown pineapple [Pineapple] Allergy (Unknown, Verified 09/03/20) unknown wheat [Wheat] Allergy (Unknown, Verified 09/03/20) unknown broccoli Allergy (Verified 09/03/20:) cantaloupe Allergy (Verified 09/03/20:) cauliflower Allergy (Verified 09/03/20:) chocolate flavor Allergy (Verified 09/03/20:28) [place] And Derivatives Allergy (Verified 09/03/20:28) colloidal oatmeal Allergy (Verified 09/03/20:) corn Allergy (Verified 09/03/20:28) eggplant Allergy (Verified 09/03/20:28) gluten Allergy (Verified 09/03/20:28) green pepper Allergy (Verified 09/03/20:28) inverted sugar Allergy (Verified 09/03/20:) milk Allergy (Verified 09/03/20:28) onion Allergy (Verified 09/03/20:28) potato Allergy (Verified 09/03/20:28) rice Allergy (Verified 09/03/20:28) soy Allergy (Verified 09/03/20:28) acetic acid [Acetic Acid] Adverse Reaction (Mild, Verified 09/03/20 06:28) flu like symptoms hops Allergy (Severe, Uncoded 08/02/20 17:46) severe asthma perfume Ht 52 Allergy (Severe, Uncoded 08/02/20 17:46) Anaphylaxis acrylic Allergy (Intermediate, Uncoded 08/02/20 17:46) swelling fluoride Allergy (Unknown, Uncoded 08/02/20 17:46) unknown canned vegetables Allergy (Uncoded 08/04/20 12:22) green beans Allergy (Uncoded 08/04/20 12:22) local anesthetics Allergy (Uncoded 08/02/20 17:46) muskmelon Allergy (Uncoded 08/04/20 12:22) peanut butter Allergy (Uncoded 08/04/20 12:22) raw vegetables Allergy (Uncoded 08/04/20 12:22) Past Medical History - General Information source: Patient - Social History Smoking Status: Former Smoker Cigarette use (# per day): No Frequency of alcohol use: None Drug Abuse: None, Prescription drugs Lives with: Family Family History: Reviewed & Not Pertinent Pulmonary Medical History: Reports: Hx Asthma Endocrine Medical History: Reports: Hx Hypothyroidism Malignancy Medical History: Reports: Hx Ovarian Cancer GI Medical History: Reports: Hx Gastroesophageal Reflux Disease Musculoskeletal Medical History: Reports Hx Arthritis, Reports Hx Fibromyalgia Psychiatric Medical History: Reports: Hx Anxiety, Hx Depression Past Surgical History: Reports: Hx Appendectomy, Hx Bowel Surgery, Hx Cholecystectomy, Hx Hysterectomy, Hx Pancreatic Surgery - Multiple ERCP procedure with stent placement and removal, last surgery was, Other - Surgery to remove adhesions - Immunizations Hx Diphtheria, Pertussis, Tetanus Vaccination: No Review of Systems - Review of Systems Constitutional: See HPI, Weight gain - subjective EENT: No symptoms reported Cardiovascular: No symptoms reported Respiratory: See HPI, Short of breath Gastrointestinal: No symptoms reported Genitourinary: No symptoms reported Female Genitourinary: No symptoms reported Musculoskeletal: No symptoms reported Skin: No symptoms reported Hematologic/Lymphatic: No symptoms reported Neurological/Psychological: No symptoms reported -: Yes All other systems reviewed and negative Physical Exam - Vital signs Vitals: Temp Pulse Resp BP Pulse Ox 97.7 F 82 22 H 131/57 H 97 09/03/20 06:17 09/03/20 06:17 09/03/20 06:17 09/03/20 06:17 09/03/20 06:17 - Notes Notes: Physical Exam: General: Alert, high-pitched squeaks coming from upper airway. HEENT: Normocephalic. Atraumatic. PERRL. Extraocular movements intact. Oropharynx clear. Neck: Supple. Non-tender. Respiratory: No respiratory distress. Clear and equal breath sounds bilaterally. High-pitched squeaking, coming from throat, mentions that ativan, solumedrol, and Phenergan help this. Cardiovascular: Regular rate and rhythm. Abdominal: Normal Inspection. Non-tender. No distension. Normal Bowel Sounds. Back: No gross abnormalities. Extremities: Moves all four extremities. Upper extremities: Normal inspection. Normal ROM. Lower extremities: Normal inspection. No edema. Normal ROM. Neurological: Normal cognition. AAOx4. Normal speech. Psychological: Normal affect. Normal Mood. Skin: Warm. Dry. Normal color. Course - Re-evaluation Re-evalutation: 09/03/20 08:19 Went to check on the patient to see how her breathing was doing. She was on a mask at 10 L with 100% O2 saturation. I turned the mask down to 4 L. She was breathing out okay, but her inspiratory effort was showing upper airway obstructive sounds and she seemed to have trouble breathing in. She was little somnolent from the Ativan. This was the same sounds she was making when she was first seen. I performed a jaw thrust maneuver order, and her inpiratory phase became quite easy for her, with no obstructive sound at all and she basically was just breathing in and out normally as long as I lifted her jaw up. 09/03/20 11:33 The home health nurse had called and spoke to the patient's nurse and reported that the patient had gained all her weight in her abdomen and in her buttocks. Physical exam does not show edema or anasarca fluid collection in the soft tissues. The patient's lab work does not show excessive protein in the urine, and serum albumin and serum protein are normal. The serum creatinine is 0.61, with a BUN of 29. I do not note edema in the lower extremities. At this time the patient is talking clearly, and not making the glottic obstructive sounds when she breathes in like she was earlier. She states that the Ativan always helps when she has breathing trouble. I suspect this is all psychogenic, she allows her tongue to fall on the back of her throat and makes the noise when she is breathing. 09/03/20 12:33 I explained to the patient about all her lab work being normal, she tries to show me how she can normally put her thumbs together in her third fingers together to form a ring around her legs and go all the way up her thighs and in close it. I find that hard to believe because she cannot get anywhere close to and closing her thigh and her hands this way. She wants me to tell her why her breathing is doing as it is, she has seen 3 ear nose and throat doctors the told her it has to do with her mind and the oxygen back and then she goes off into talking about when all this happens her [facility] accept and she is losing the use of her left side. I told the patient that these are all longstanding problems that have been evaluated by several specialist and that I would not be able to solve any of those issues for her today. I would give her copies of her lab work to take to her primary care provider who sent her in here to be evaluated for her swelling and they could decide from there if they wanted to use diuretics. The patient's weight today is actually less than it was when she was seen here 2 weeks ago. - Vital Signs Vital signs: Temp Pulse Resp BP Pulse Ox 97.7 F 82 10 L 130/69 H 99 09/03/20 06:17 09/03/20 06:17 09/03/20 13:01 09/03/20 13:01 09/03/20 13:01 - Laboratory Result Diagrams: 09/03/20 08:56 09/03/20 08:56 Laboratory results interpreted by me: 09/03/20 09/03/20 09/03/20 08:56 08:56 10:34 Hgb 15.7 H Hct 47.2 H RDW 14.4 H Carbon Dioxide 31 H BUN 29 H Urine Protein 30 H Urine Ascorbic Acid 40 H - Diagnostic Test Radiology reviewed: Image reviewed, Reports reviewed - No acute radiographic findings on chest x-ray - EKG Interpretation by Me EKG shows normal: Sinus rhythm, [place], Intervals, QRS Complexes. abnormal: ST-T Waves - Abnormal R wave progression, consider ASM or lead placement Rate: Normal - 79 Rhythm: NSR Discharge - Discharge Clinical Impression: Fluid retention Condition: Stable Disposition: HOME, SELF-CARE Additional Instructions: Your lab work today was normal and did not suggest a reason for fluid retention. Your physical exam today did not suggest any fluid in the soft tissues. Your breathing problem seems to be when you lay back and allowed your tongue to fall on the back of your throat and that causes inspiratory stridor. The weight that was recorded today is actually less than it was when you were seen here 2 weeks ago. Take copies of your lab work to follow-up with your primary care provider. Referrals: SHWETHA ARBOLEDA PA-C [Primary Care Provider] - Follow up in 3-5 days I personally performed the services described in the documentation, reviewed and edited the documentation which was dictated to the scribe in my presence, and it accurately records my words and actions.
--- NOTE | 2020-09-03 09:01 | RADIOLOGY REPORT (SQ) ---
EXAM DESCRIPTION: CHEST SINGLE VIEW IMAGES COMPLETED DATE/TIME: 09/03/2020 8:41 am REASON FOR STUDY: Short of breath COMPARISON: 08/02/2020 EXAM PARAMETERS: NUMBER OF VIEWS: One view. TECHNIQUE: Single frontal radiographic view of the chest acquired. RADIATION DOSE: NA LIMITATIONS: None. FINDINGS: LUNGS AND PLEURA: No opacities, masses or pneumothorax. No pleural effusion. MEDIASTINUM AND HILAR STRUCTURES: No masses. Contour normal. HEART AND VASCULAR STRUCTURES: Heart normal in size. Normal vasculature. BONES: No acute findings. HARDWARE: None in the chest. OTHER: No other significant finding. IMPRESSION: NO ACUTE RADIOGRAPHIC FINDING IN THE CHEST. TECHNICAL DOCUMENTATION: JOB ID: [id number] [employer]- All Rights Reserved Reading location - IP/workstation name: [email or web address]
[2020-09-03 09:30] LABS: ABSOLUTE EOSINOPHILS # (AUTO) 0.1 10^3/uL (0.0-0.6); ABSOLUTE LYMPHOCYTES (AUTO) 1.6 10^3/uL (0.5-4.7); ABSOLUTE MONOCYTES (AUTO) 0.6 10^3/uL (0.1-1.4); ABSOLUTE NEUT (AUTO) 7.4 10^3/uL (1.7-8.2); BASOPHILS % (AUTO) 0.5 % (0-2); EOSINOPHILS % (AUTO) 0.6 % (0-6); HEMATOCRIT 47.2 % (36.0-47.0); HEMOGLOBIN 15.7 g/dL (12.0-15.5); LYMPHOCYTES % (AUTO) 16.7 % (13-45); MEAN CORPUSCULAR HEMOGLOBIN 31.1 pg (27.0-33.4); MEAN CORPUSCULAR HGB CONC 33.3 g/dL (32.0-36.0); MEAN CORPUSCULAR VOLUME 94 fl (80-97); MONOCYTES % (AUTO) 6.3 % (3-13); PLATELET COUNT 232 10^3/uL (150-450); RED BLOOD COUNT 5.05 10^6/uL (3.72-5.28); RED CELL DISTRIBUTION WIDTH 14.4 % (11.5-14.0); SEGMENTED NEUTROPHILS % (AUTO) 75.9 % (42-78); TOTAL CELLS COUNTED % (AUTO) 100 %; WHITE BLOOD COUNT 9.8 10^3/uL (4.0-10.5)
[2020-09-03 09:52] LABS: ALBUMIN 4.3 g/dL (3.5-5.0); ALKALINE PHOSPHATASE 60 U/L (38-126); ANION GAP 8 (5-19); ASPARTATE AMINO TRANSFERASE 27 U/L (14-36); BILIRUBIN,DIRECT 0.1 mg/dL (0.0-0.4); BILIRUBIN,TOTAL 0.4 mg/dL (0.2-1.3); BLOOD UREA NITROGEN 29 mg/dL (7-20); CALCIUM 9.3 mg/dL (8.4-10.2); CARBON DIOXIDE 31 mmol/L (22-30); CHLORIDE 101 mmol/L (98-107); CREATINE KINASE 32 U/L (30-135); GLUCOSE 99 mg/dL (75-110); POTASSIUM 4.5 mmol/L (3.6-5.0); TOTAL PROTEIN 6.8 g/dL (6.3-8.2)
[2020-09-03 10:57] LABS: AMORPHOUS SEDIMENT,URINE TRACE /HPF; APPEARANCE,URINE SLIGHTLY-CLOUDY; BILIRUBIN,URINE NEGATIVE (NEGATIVE); COLOR,URINE YELLOW; GLUCOSE, URINE NEGATIVE (NEGATIVE); KETONES,URINE NEGATIVE (NEGATIVE); LEUKOCYTE ESTERASE,URINE NEGATIVE (NEGATIVE); NITRITE,URINE NEGATIVE (NEGATIVE); PROTEIN,URINE 30 mg/dL (NEGATIVE); URINE SPECIFIC GRAVITY 1.032; UROBILINOGEN,URINE NEGATIVE mg/dL (<2.0)
[2020-09-03 12:23] LABS: NT PRO BNP 33 pg/mL (<125)
[2020-09-03 12:26] LABS: TROPONIN I < 0.012 ng/mL
[2020-09-03 13:43] VITALS: BP 130/69
--- NOTE | 2020-09-03 19:51 | EKG REPORT ---
SEVERITY:- ABNORMAL ECG - SINUS RHYTHM ABNRM R PROG, CONSIDER ASMI OR LEAD PLACEMENT : Confirmed by: Peter Abebe 03-Sep-2020 19:50:17
== END 2020-09-03 13:41 | disposition home or self-care (01) ==
LOC: ER 05:52
DX: R60.9 Edema, unspecified (principal); R06.02 Shortness of breath; M54.9 Dorsalgia, unspecified; R63.5 Abnormal weight gain; Z88.8 Allergy status to other drugs, medicaments and biological substances; Z88.1 Allergy status to other antibiotic agents; Z87.891 Personal history of nicotine dependence; J45.909 Unspecified asthma, uncomplicated
CPT/HCPCS: 93005; 99285; 96374; 96375; 36415; 82550; 85025; 80053; 81001; 84484; 83880; 71045; 93010; J2930; J2060; J2550

== ENCOUNTER 2020-10-22 11:40 | Emergency (ER) | payer MEDICARE ==
--- NOTE | 2020-10-22 12:18 | ER Document Report ---
ED Medical Screen (RME) - General Chief Complaint: Chest Pain Stated Complaint: CHEST PAIN Time Seen by Provider: 10/22/20 12:09 Primary Care Provider: SHWETHA ARBOLEDA PA-C [Primary Care Provider] - Follow up as needed TRAVEL OUTSIDE OF THE [place] IN LAST 30 DAYS: No - HPI Notes: 10/22/20 12:15 59-year-old female with a history of chronic fatigue syndrome, fibromyalgia, GERD, hypothyroidism, asthma who is 95% of the time bedridden presents to the emergency room for substernal chest pain that shoots between her shoulder blades that started around 6 PM last night until she fell asleep around 7 PM. Reports CP started at 5 AM, when she woke up and has been constant since. Reports pain is 3 out of 5. Reports nausea but she has had nausea and prior to this event happening, denies any vomiting, abdominal pain, headache. Patient states she has baseline shortness of breath, states that her shortness of breath does not feel any worse since her chest pain started. Patient does not smoke. Denies any prior history of any cardiac issues. Patient did do a breathing treatment prior to coming to the emergency room, this did not make her chest pain any worse. Her PCP is at [facility] I have greeted and performed a rapid initial assessment of this patient. A comprehensive ED assessment and evaluation of the patient, analysis of test results and completion of the medical decision making process will be conducted by additional ED providers. PHYSICAL EXAMINATION: GENERAL: Well-appearing, well-nourished and in no acute distress. HEAD: Atraumatic, normocephalic. EYES: Pupils equal round extraocular movements intact, conjunctiva are normal. NECK: Normal range of motion CV: s1, s2 regular. Reproducible substernal chest pain on palpation LUNGS: Wheezing in bilateral upper lobes - Related Data Allergies/Adverse Reactions: caffeine [Caffeine] Allergy (Severe, Verified 10/22/20 12:04) sets off autoimmune response ethyl chloride [Ethyl Chloride] Allergy (Severe, Verified 10/22/20 12:04) Anaphylaxis iodine [Iodine] Allergy (Severe, Verified 10/22/20 12:04) Anaphylaxis lidocaine HCl [From Xylocaine] Allergy (Severe, Verified 10/22/20 12:04) Anaphylaxis morphine [Morphine] Allergy (Severe, Verified 10/22/20 12:04) swelling, AMS pentazocine lactate [From Talwin] Allergy (Severe, Verified 10/22/20 12:04) Hallucinations procaine HCl [From Novocain] Allergy (Severe, Verified 10/22/20 12:04) Anaphylaxis carisoprodol [From Soma] Allergy (Intermediate, Verified 10/22/20 12:04) muscle problems Iodinated Contrast Media [IV Dye, Iodine Containing] Allergy (Intermediate, Verified 10/22/20 12:04) Anaphylaxis pentazocine [Pentazocine] Allergy (Intermediate, Verified 10/22/20 12:04) Hallucinations adhesive tape [Adhesive Tape] Allergy (Mild, Verified 10/22/20 12:04) sores, skin peeled off paraben [Paraben] Allergy (Mild, Verified 10/22/20 12:04) rash ampicillin [Ampicillin] Allergy (Unknown, Verified 10/22/20 12:04) convulsions atropine [Atropine] Allergy (Unknown, Verified 10/22/20 12:04) unknown chicken derived [Chicken Derived] Allergy (Unknown, Verified 10/22/20 12:04) unknown pineapple [Pineapple] Allergy (Unknown, Verified 10/22/20 12:04) unknown wheat [Wheat] Allergy (Unknown, Verified 10/22/20 12:04) unknown broccoli Allergy (Verified 10/22/20 12:04) cantaloupe Allergy (Verified 10/22/20 12:04) cauliflower Allergy (Verified 10/22/20 12:04) chocolate flavor Allergy (Verified 10/22/20 12:04) [place] And Derivatives Allergy (Verified 10/22/20 12:04) colloidal oatmeal Allergy (Verified 10/22/20 12:04) corn Allergy (Verified 10/22/20 12:04) eggplant Allergy (Verified 10/22/20 12:04) gluten Allergy (Verified 10/22/20 12:04) green pepper Allergy (Verified 10/22/20 12:04) inverted sugar Allergy (Verified 10/22/20 12:04) milk Allergy (Verified 10/22/20 12:04) onion Allergy (Verified 10/22/20 12:04) potato Allergy (Verified 10/22/20 12:04) rice Allergy (Verified 10/22/20 12:04) soy Allergy (Verified 10/22/20 12:04) acetic acid [Acetic Acid] Adverse Reaction (Mild, Verified 10/22/20 12:04) flu like symptoms hops Allergy (Severe, Uncoded 10/22/20 12:04) severe asthma perfume Ht 52 Allergy (Severe, Uncoded 10/22/20 12:04) Anaphylaxis acrylic Allergy (Intermediate, Uncoded 10/22/20 12:04) swelling fluoride Allergy (Unknown, Uncoded 10/22/20 12:04) unknown canned vegetables Allergy (Uncoded 10/22/20 12:04) green beans Allergy (Uncoded 10/22/20 12:04) local anesthetics Allergy (Uncoded 10/22/20 12:04) muskmelon Allergy (Uncoded 10/22/20 12:04) peanut butter Allergy (Uncoded 10/22/20 12:04) raw vegetables Allergy (Uncoded 10/22/20 12:04) Past Medical History - Past Medical History Cardiac Medical History: Denies: Hx Coronary Artery Disease, Hx Heart Attack, Hx Hypertension Pulmonary Medical History: Reports: Hx Asthma Denies: Hx Bronchitis, Hx COPD, Hx Pneumonia Neurological Medical History: Denies: Hx Cerebrovascular Accident, Hx Seizures Endocrine Medical History: Reports: Hx Hypothyroidism Renal/ Medical History: Denies: Hx Peritoneal Dialysis Malignancy Medical History: Reports: Hx Ovarian Cancer GI Medical History: Reports: Hx Gastroesophageal Reflux Disease Musculoskeltal Medical History: Reports Hx Arthritis, Reports Hx Fibromyalgia Psychiatric Medical History: Reports: Hx Anxiety, Hx Depression Past Surgical History: Reports: Hx Appendectomy, Hx Bowel Surgery, Hx Cholecystectomy, Hx Hysterectomy, Hx Pancreatic Surgery - Multiple ERCP procedure with stent placement and removal, last surgery was, Other - Surgery to remove adhesions - Immunizations Hx Diphtheria, Pertussis, Tetanus Vaccination: No Physical Exam - Vital signs Vitals: Temp Pulse Resp BP Pulse Ox 98.6 F 55 L 20 117/66 96 10/22/20 11:54 10/22/20 11:54 10/22/20 11:54 10/22/20 11:54 10/22/20 11:54 Course - Vital Signs Vital signs: Temp Pulse Resp BP Pulse Ox 98.6 F 55 L 20 117/66 96 10/22/20 11:54 10/22/20 11:54 10/22/20 11:54 10/22/20 11:54 10/22/20 11:54 Doctor's Discharge - Discharge Referrals: SHWETHA ARBOLEDA PA-C [Primary Care Provider] - Follow up as needed
--- NOTE | 2020-10-22 12:43 | RADIOLOGY REPORT (SQ) ---
EXAM DESCRIPTION: CHEST SINGLE VIEW IMAGES COMPLETED DATE/TIME: 10/22/2020 12:36 pm REASON FOR STUDY: substernal chest pain COMPARISON: 09/03/2020 EXAM PARAMETERS: NUMBER OF VIEWS: One view. TECHNIQUE: Single frontal radiographic view of the chest acquired. RADIATION DOSE: NA LIMITATIONS: None. FINDINGS: LUNGS AND PLEURA: No opacities, masses or pneumothorax. No pleural effusion. MEDIASTINUM AND HILAR STRUCTURES: No masses. Contour normal. HEART AND VASCULAR STRUCTURES: Heart normal in size. Normal vasculature. BONES: No acute findings. HARDWARE: None in the chest. OTHER: No other significant finding. IMPRESSION: NO ACUTE RADIOGRAPHIC FINDING IN THE CHEST. TECHNICAL DOCUMENTATION: JOB ID: [id number] 2010 [employer]- All Rights Reserved Reading location - IP/workstation name: [email or web address]
[2020-10-22] MEDS ORDERED: IPRATROPIUM/ALBUTEROL 0.5-2.5 MG/3 ML AMPUL NEB ONE (13:27)
--- NOTE | 2020-10-22 13:28 | EKG REPORT ---
SEVERITY:- NORMAL ECG - SINUS RHYTHM : Confirmed by: Marcelo Dailey MD 22-Oct-2020 13:28:09
[2020-10-22 13:29] LABS: ABSOLUTE LYMPHOCYTES (AUTO) 1.5 10^3/uL (0.5-4.7); ABSOLUTE MONOCYTES (AUTO) 0.4 10^3/uL (0.1-1.4); ABSOLUTE NEUT (AUTO) 4.3 10^3/uL (1.7-8.2); BASOPHILS % (AUTO) 0.6 % (0-2); EOSINOPHILS % (AUTO) 0.1 % (0-6); HEMATOCRIT 44.2 % (36.0-47.0); LYMPHOCYTES % (AUTO) 24.7 % (13-45); MEAN CORPUSCULAR HEMOGLOBIN 30.6 pg (27.0-33.4); MEAN CORPUSCULAR HGB CONC 33.9 g/dL (32.0-36.0); MEAN CORPUSCULAR VOLUME 90 fl (80-97); PLATELET COUNT 264 10^3/uL (150-450); RED CELL DISTRIBUTION WIDTH 14.1 % (11.5-14.0); SEGMENTED NEUTROPHILS % (AUTO) 68.6 % (42-78); TOTAL CELLS COUNTED % (AUTO) 100 %; WHITE BLOOD COUNT 6.3 10^3/uL (4.0-10.5)
[2020-10-22 13:38] LABS: ALBUMIN 3.8 g/dL (3.5-5.0); ALKALINE PHOSPHATASE 57 U/L (38-126); ASPARTATE AMINO TRANSFERASE 37 U/L (14-36); BILIRUBIN,DIRECT 0.1 mg/dL (0.0-0.4); BILIRUBIN,TOTAL 0.4 mg/dL (0.2-1.3); BLOOD UREA NITROGEN 10 mg/dL (7-20); CALCIUM 9.2 mg/dL (8.4-10.2); CHLORIDE 105 mmol/L (98-107); GLUCOSE 127 mg/dL (75-110); POTASSIUM 4.1 mmol/L (3.6-5.0); TOTAL PROTEIN 6.2 g/dL (6.3-8.2)
[2020-10-22 13:41] LABS: CREATINE KINASE < 20 U/L (30-135)
[2020-10-22 13:44] LABS: ANION GAP 6 (5-19); CARBON DIOXIDE 28 mmol/L (22-30)
[2020-10-22 13:49] LABS: CREATINE KINASE MB 0.66 ng/mL (<4.55)
[2020-10-22 13:50] LABS: TROPONIN I < 0.012 ng/mL
--- NOTE | 2020-10-22 15:43 | RADIOLOGY REPORT (SQ) ---
EXAM DESCRIPTION: NM LUNG PERFUSION SCAN IMAGES COMPLETED DATE/TIME: 10/22/2020 3:31 pm REASON FOR STUDY: cp/sob COMPARISON: None. RADIONUCLIDE AND DOSE: 4.7 millicuries TC-99m MAA The route of agent administration: Intravenous TECHNIQUE: Eight views of the lungs acquired following injection of MAA. LIMITATIONS: None. FINDINGS: PERFUSION: Perfusion images with normal homogenous activity and no wedge-shaped or segment al defects. OTHER: No other significant finding. IMPRESSION: NORMAL PERFUSION LUNG SCAN. TECHNICAL DOCUMENTATION: JOB ID: [id number] 2010 [employer]- All Rights Reserved Reading location - IP/workstation name: [email or web address]
--- NOTE | 2020-10-22 17:42 | ER Document Report ---
ED Cardiac - General Chief Complaint: Chest Pain > 30 Stated Complaint: CHEST PAIN Time Seen by Provider: 10/22/20 12:09 Primary Care Provider: SHWETHA ARBOLEDA PA-C [Primary Care Provider] - Follow up as needed Mode of Arrival: Wheelchair Information source: Patient TRAVEL OUTSIDE OF THE [place] IN LAST 30 DAYS: No - HPI Notes: Patient presents with epigastric abdominal pain. Is a burning sensation. She states it does radiate straight through to her back. She does not know of any makes it better or worse. States she called her primary care doctor today who told her to come the emergency room for evaluation. She has had some nausea but no significant vomiting. No significant recent diarrhea. No fever sweats or chills. She denies any previous history of cardiac stents. She states she does not currently have a repeater chief and has had no recent evaluation. The pain is moderate and burning. - Related Data Allergies/Adverse Reactions: caffeine [Caffeine] Allergy (Severe, Verified 10/22/20 12:04) sets off autoimmune response ethyl chloride [Ethyl Chloride] Allergy (Severe, Verified 10/22/20 12:04) Anaphylaxis iodine [Iodine] Allergy (Severe, Verified 10/22/20 12:04) Anaphylaxis lidocaine HCl [From Xylocaine] Allergy (Severe, Verified 10/22/20 12:04) Anaphylaxis morphine [Morphine] Allergy (Severe, Verified 10/22/20 12:04) swelling, AMS pentazocine lactate [From Talwin] Allergy (Severe, Verified 10/22/20 12:04) Hallucinations procaine HCl [From Novocain] Allergy (Severe, Verified 10/22/20 12:04) Anaphylaxis carisoprodol [From Soma] Allergy (Intermediate, Verified 10/22/20 12:04) muscle problems Iodinated Contrast Media [IV Dye, Iodine Containing] Allergy (Intermediate, Verified 10/22/20 12:04) Anaphylaxis pentazocine [Pentazocine] Allergy (Intermediate, Verified 10/22/20 12:04) Hallucinations adhesive tape [Adhesive Tape] Allergy (Mild, Verified 10/22/20 12:04) sores, skin peeled off paraben [Paraben] Allergy (Mild, Verified 10/22/20 12:04) rash ampicillin [Ampicillin] Allergy (Unknown, Verified 10/22/20 12:04) convulsions atropine [Atropine] Allergy (Unknown, Verified 10/22/20 12:04) unknown chicken derived [Chicken Derived] Allergy (Unknown, Verified 10/22/20 12:04) unknown pineapple [Pineapple] Allergy (Unknown, Verified 10/22/20 12:04) unknown wheat [Wheat] Allergy (Unknown, Verified 10/22/20 12:04) unknown broccoli Allergy (Verified 10/22/20 12:04) cantaloupe Allergy (Verified 10/22/20 12:04) cauliflower Allergy (Verified 10/22/20 12:04) chocolate flavor Allergy (Verified 10/22/20 12:04) [place] And Derivatives Allergy (Verified 10/22/20 12:04) colloidal oatmeal Allergy (Verified 10/22/20 12:04) corn Allergy (Verified 10/22/20 12:04) eggplant Allergy (Verified 10/22/20 12:04) gluten Allergy (Verified 10/22/20 12:04) green pepper Allergy (Verified 10/22/20 12:04) inverted sugar Allergy (Verified 10/22/20 12:04) milk Allergy (Verified 10/22/20 12:04) onion Allergy (Verified 10/22/20 12:04) potato Allergy (Verified 10/22/20 12:04) rice Allergy (Verified 10/22/20 12:04) soy Allergy (Verified 10/22/20 12:04) acetic acid [Acetic Acid] Adverse Reaction (Mild, Verified 10/22/20 12:04) flu like symptoms hops Allergy (Severe, Uncoded 10/22/20 12:04) severe asthma perfume Ht 52 Allergy (Severe, Uncoded 10/22/20 12:04) Anaphylaxis acrylic Allergy (Intermediate, Uncoded 10/22/20 12:04) swelling fluoride Allergy (Unknown, Uncoded 10/22/20 12:04) unknown canned vegetables Allergy (Uncoded 10/22/20 12:04) green beans Allergy (Uncoded 10/22/20 12:04) local anesthetics Allergy (Uncoded 10/22/20 12:04) muskmelon Allergy (Uncoded 10/22/20 12:04) peanut butter Allergy (Uncoded 10/22/20 12:04) raw vegetables Allergy (Uncoded 10/22/20 12:04) Past Medical History - General Information source: Patient - Social History Smoking Status: Former Smoker Chew tobacco use (# tins/day): No Frequency of alcohol use: None Drug Abuse: None Family History: Reviewed & Not Pertinent - Past Medical History Cardiac Medical History: Denies: Hx Coronary Artery Disease, Hx Heart Attack, Hx Hypertension Pulmonary Medical History: Reports: Hx Asthma Denies: Hx Bronchitis, Hx COPD, Hx Pneumonia Neurological Medical History: Denies: Hx Cerebrovascular Accident, Hx Seizures Endocrine Medical History: Reports: Hx Hypothyroidism Renal/ Medical History: Denies: Hx Peritoneal Dialysis Malignancy Medical History: Reports: Hx Ovarian Cancer GI Medical History: Reports: Hx Gastroesophageal Reflux Disease Musculoskeletal Medical History: Reports Hx Arthritis, Reports Hx Fibromyalgia Psychiatric Medical History: Reports: Hx Anxiety, Hx Depression Past Surgical History: Reports: Hx Appendectomy, Hx Bowel Surgery, Hx Cholecystectomy, Hx Hysterectomy, Hx Pancreatic Surgery - Multiple ERCP procedure with stent placement and removal, last surgery was, Other - Surgery to remove adhesions - Immunizations Hx Diphtheria, Pertussis, Tetanus Vaccination: No Review of Systems - Review of Systems Constitutional: denies: Chills, Fever Cardiovascular: Chest pain. denies: Palpitations Respiratory: denies: Cough, Short of breath -: Yes All other systems reviewed and negative Physical Exam - Vital signs Vitals: Temp Pulse Resp BP Pulse Ox 98.6 F 55 L 20 117/66 96 10/22/20 11:54 10/22/20 11:54 10/22/20 11:54 10/22/20 11:54 10/22/20 11:54 Interpretation: Normal - General General appearance: Appears well, Alert - HEENT Head: Normocephalic, Atraumatic Eyes: Normal Pupils: PERRL - Respiratory Respiratory status: No respiratory distress Chest status: Nontender Breath sounds: Normal Chest palpation: Normal - Cardiovascular Rhythm: Regular Heart sounds: Normal auscultation Murmur: No - Abdominal Inspection: Normal Distension: No distension Bowel sounds: Normal Tenderness: Nontender Organomegaly: No organomegaly - Back Back: Normal, Nontender - Extremities General upper extremity: Normal inspection, Nontender, Normal color, Normal ROM, Normal temperature General lower extremity: Normal inspection, Nontender, Normal color, Normal ROM, Normal temperature, Normal weight bearing. No: Silvia's sign - Neurological Neuro grossly intact: Yes Cognition: Normal Orientation: AAOx4 Jacqueline Coma Scale Eye Opening: Spontaneous [place] Coma Scale Verbal: Oriented Jac[place]eline Coma Scale Motor: Obeys Commands Jacqueline Coma Scale Total: 15 Speech: Normal Motor strength normal: LUE, RUE, LLE, RLE Sensory: Normal - Psychological Associated symptoms: Normal affect, Normal mood - Skin Skin Temperature: Warm Skin Moisture: Dry Skin Color: Normal Course - Vital Signs Vital signs: Temp Pulse Resp BP Pulse Ox 98.6 F 55 L 12 126/54 H 98 10/22/20 11:54 10/22/20 11:54 10/22/20 17:02 10/22/20 17:02 10/22/20 17:02 - Laboratory Result Diagrams: 10/22/20 12:45 10/22/20 12:45 Laboratory results interpreted by me: 10/22/20 10/22/20 12:45 12:45 RDW 14.1 H Glucose 127 H AST 37 H ALT 50 H Creatine Kinase < 20 L Total Protein 6.2 L - Diagnostic Test Radiology reviewed: Image reviewed, Reports reviewed - EKG Interpretation by Me EKG shows normal: Sinus rhythm Rate: Normal - 82 Rhythm: NSR [place]/QRS: No: Right axis deviation, Left axis deviation Discharge - Discharge Clinical Impression: Epigastric pain Condition: Stable Disposition: HOME, SELF-CARE Instructions: Chest Pain of Unclear Cause ([facility]) Referrals: SHWETHA ARBOLEDA PA-C [Primary Care Provider] - Follow up as needed ROSINA REYES MD [ACTIVE STAFF] - Follow up in 1 week
[2020-10-22 17:54] VITALS: BP 128/64
== END 2020-10-22 17:54 | disposition home or self-care (01) ==
LOC: ER 11:40
DX: R10.13 Epigastric pain (principal); R11.0 Nausea; R07.2 Precordial pain; J45.909 Unspecified asthma, uncomplicated; Z87.891 Personal history of nicotine dependence; Z88.8 Allergy status to other drugs, medicaments and biological substances; Z87.892 Personal history of anaphylaxis; Z91.048 Other nonmedicinal substance allergy status; Z88.4 Allergy status to anesthetic agent; Z88.6 Allergy status to analgesic agent; Z88.5 Allergy status to narcotic agent; Z91.041 Radiographic dye allergy status; Z88.0 Allergy status to penicillin; Z91.018 Allergy to other foods; Z91.011 Allergy to milk products; Z85.43 Personal history of malignant neoplasm of ovary
CPT/HCPCS: 93005; 94640; 99285; 36415; 82553; 82550; 83690; 85025; 80053; 84484; 71045; 78580; 93010; A9540; Q9969